=== PATIENT | male | born 1950 | race Caucasian/White ===

== ENCOUNTER 2019-01-31 16:24 | Emergency (ER) | payer OTHER ==
[~2019-01-31] VITALS: Ht 167.6 cm; Wt 79.8 kg
[~2019-01-31 16:24] MED LIST: ASPI-482 PO; ATOR20TA58 PO; CAPT12.52 PO; CLOP75TA57 PO; GARL10002 PO; ISOS30TA PO; METO25TA4 PO; OMEG1CAP30 PO; PANT40TA3 PO; RANO10002 PO; UNABLE MC; [UNRECOGNIZED DRUG - REMARK] PO
--- NOTE | 2019-01-31 16:42 | PHYS DOC ---
Past History Past Medical History: Other Past Surgical History: Angioplasty, Other Smoking: Cigarettes, Greater than 1 pack/day Alcohol Use: Occasionally Drug Use: None Adult General Chief Complaint Chief Complaint: CHEST PAIN HPI HPI Patient is a 68-year-old male presents with lower chest discomfort for the past day. Nothing makes it better or worse, no worsening with exertion or deep breaths. Patient is just recently post a nausea vomiting diarrheal illness. Denies any fevers. Patient does smoke and does have a reported cardiac history. There is no radiation of the discomfort. Discomfort is mild to moderate in intensity. No new nausea or vomiting. No diaphoresis.[] Review of Systems Review of Systems Constitutional: Denies fever or chills [] Eyes: Denies change in visual acuity, redness, or eye pain [] HENT: Denies nasal congestion or sore throat [] Respiratory: Denies cough or shortness of breath [] Cardiovascular: No additional information not addressed in HPI [] GI: Denies abdominal pain, nausea, vomiting, bloody stools or diarrhea [] : Denies dysuria or hematuria [] Musculoskeletal: Denies back pain or joint pain [] Integument: Denies rash or skin lesions [] Neurologic: Denies headache, focal weakness or sensory changes [] Endocrine: Denies polyuria or polydipsia [] All other systems were reviewed and found to be within normal limits, except as documented in this note. Allergies Allergies Allergies Coded Allergies Type Severity Reaction Last Updated Verified No Known Drug Allergies 04/14/14 No Physical Exam Physical Exam Constitutional: Well developed, well nourished, no acute distress, non-toxic appearance. [] HENT: Normocephalic, atraumatic, bilateral external ears normal, oropharynx moist, no oral exudates, nose normal. [] Eyes: PERRLA, EOMI, conjunctiva normal, no discharge. [] Neck: Normal range of motion, no tenderness, supple, no stridor. [] Cardiovascular:Heart rate regular rhythm, no murmur [] Lungs & Thorax: Bilateral breath sounds with inspiratory and expiratory wheezes[] Abdomen: Bowel sounds normal, soft, no tenderness, no masses, no pulsatile masses. [] Skin: Warm, dry, no erythema, no rash. [] Back: No tenderness, no CVA tenderness. [] Extremities: No tenderness, no cyanosis, no clubbing, ROM intact, no edema. [] Neurologic: Alert and oriented X 3, normal motor function, normal sensory function, no focal deficits noted. [] Psychologic: Affect normal, judgement normal, mood normal. [] EKG EKG EKG shows a sinus rhythm with frequent PVCs in a trigeminy pattern. There is no ST elevation. Rate is 82 bpm, normal axis, QTC of 466 ms. Interpreted me at 1636. When compared with EKG of 04/14/2014 the PVCs are the only acute feature that is different[] Radiology/Procedures Radiology/Procedures PROCEDURE: CHEST PA & LATERAL PA and lateral chest. HISTORY: Cough with chest pain, short of breath PA and lateral views were taken of the chest. There are no confluent infiltrates. Heart is normal in size. There is no pleural effusion. IMPRESSION: 1. No acute infiltrates.[] Course & Med Decision Making Course & Med Decision Making Pertinent Labs and Imaging studies reviewed. (See chart for details) [place]: Patient arrived, was placed in bed, and tolerated exam well. His lungs were clear after breathing treatment. In the reported feeling much better. After the return of lab and imaging studies, these were discussed with the patient who voiced understanding. All questions were answered. He was discharged in improved condition. Medical decision making: There is no evidence this being an acute coronary syndrome, no pneumonia, no pneumothorax, no pulmonary embolism.[] Dragon Disclaimer Dragon Disclaimer This electronic medical record was generated, in whole or in part, using a voice recognition dictation system. Departure Departure: Impression: Primary Impression: COPD with exacerbation Additional Impressions: Tobacco abuse Chest pain Disposition: HOME, SELF-CARE Condition: IMPROVED Referrals: JENNY DONOHUE DO (PCP) Follow-up in 2 days Patient Instructions: Chest Pain (Nonspecific), Chronic Obstructive Pulmonary Disease Exacerbation, Smoking Cessation Additional Instructions: Drink plenty of fluids. Follow-up with your regular doctor in 2 days. Stop smoking. Take medication as prescribed. Return to the ER if worsening difficulty breathing, worsening chest discomfort, or any other concerns. Scripts Prednisone (PREDNISONE) 50 Mg Tablet 1 TAB PO DAILY for INFLAMMATION, #5 TAB Prov: JONNA GAYTAN DO 01/31/19 Ipratropium/Albuterol Sulfate (COMBIVENT RESPIMAT INHAL) 4 Gm Aer.w.adap 2 PUFF INH Q6HRS for cough, shortness of breath, #1 INHALER Prov: JONNA GAYTAN DO 01/31/19 Problem Qualifiers Additional Impressions: Chest pain Chest pain type: unspecified Qualified Codes: R07.9 - Chest pain, unspecified JONNA GAYTAN DO Jan 31, 2019 16:42
[2019-01-31] MEDS ORDERED: ASPIRIN 81 MG TAB.CHEW ONE ×2 (16:47)
[2019-01-31 16:59] LABS: BASO # 0.1 x10^3/uL (0.0-0.2); BASO % 1 % (0-3); EOS # 0.2 x10^3/uL (0.0-0.7); EOS % 3 % (0-3); HEMATOCRIT 46.5 % (39.0-53.0); HEMOGLOBIN 16.1 g/dL (13.0-17.5); LYMPH # 3.1 x10^3/uL (1.0-4.8); LYMPH % 47 % (24-48); MEAN CORPUSCULAR HEMOGLOBIN 33 pg (25-35); MEAN CORPUSCULAR HGB CONC 35 g/dL (31-37); MEAN CORPUSCULAR VOLUME 96 fL (79-100); MONO # 0.6 x10^3/uL (0.0-1.1); MONO % 9 % (0-9); NEUT # 2.7 x10^3uL (1.8-7.7); NEUT % 40 % (31-73); PLATELET COUNT 327 x10^3/uL (140-400); RED BLOOD COUNT 4.84 x10^6/uL (4.30-5.70); WHITE BLOOD COUNT 6.7 x10^3/uL (4.0-11.0)
--- NOTE | 2019-01-31 17:08 | EKG ---
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
[2019-01-31] MEDS ORDERED: IPRATRPIUM/ALBUTEROL 0.5/2.5MG 3 ML NEBU. NEB ONE (17:15)
[2019-01-31] MEDS ORDERED: ASPIRIN 81 MG TAB.CHEW PO ONE (17:15)
[2019-01-31 17:24] LABS: CALCIUM 8.7 mg/dL (8.5-10.1); GFR 74.5; MAGNESIUM 1.9 mg/dL (1.8-2.4); POTASSIUM 3.5 mmol/L (3.5-5.1); TOTAL BILIRUBIN 0.3 mg/dL (0.2-1.0); TOTAL PROTEIN 8.1 g/dL (6.4-8.2)
--- NOTE | 2019-01-31 17:28 | RAD ---
PA and lateral chest. HISTORY: Cough with chest pain, short of breath PA and lateral views were taken of the chest. There are no confluent infiltrates. Heart is normal in size. There is no pleural effusion. IMPRESSION: 1. No acute infiltrates. Electronically signed by: Scott Russo MD (01/31/2019 5:26 PM) [id number]
[2019-01-31 17:34] LABS: BARBITURATES NEG (NEG); BENZODIAZEPINES NEG (NEG); CANNABINOIDS NEG (NEG); COCAINE NEG (NEG); METHADONE NEG (NEG); OPIATES NEG (NEG); PHENCYCLIDINE NEG (NEG)
[2019-01-31 17:38] LABS: AMPHETAMINE/METHAMPHETAMINE NEG (NEG)
[2019-01-31 17:41] LABS: INFLUENZA A PATIENT NEGATIVE (NEGATIVE); INFLUENZA B PATIENT NEGATIVE (NEGATIVE)
[2019-01-31] MEDS ORDERED: IPRA4AER INH (17:56)
[2019-01-31] MEDS ORDERED: PRED50TA PO (17:56)
[2019-01-31 18:03] LABS: BACTERIA,URINE 0 /HPF (0-FEW); BILIRUBIN,URINE NEG (NEG); CLARITY,URINE CLEAR; GLUCOSE,URINE NEG (NEG); NITRITE,URINE NEG (NEG); RBC,URINE RARE /HPF (0-2); SQUAMOUS EPITHELIAL CELL,UR OCC /LPF; UROBILINOGEN,URINE 0.2 mg/dL (0.2 mg/dL); WBC,URINE OCC /HPF (0-4)
[2019-01-31 18:04] LABS: COLOR,URINE YELLOW
[2019-01-31 18:06] VITALS: BP 119/65
== END 2019-01-31 18:05 | disposition home or self-care (01) ==
LOC: ER 16:24
DX: J44.1 Chronic obstructive pulmonary disease with (acute) exacerbation (principal); R07.89 Other chest pain; F17.210 Nicotine dependence, cigarettes, uncomplicated; Z98.61 Coronary angioplasty status
CPT/HCPCS: 36415; 71046; 80053; 80307; 81001; 83690; 83735; 83880; 84484; 85025; 85610; 87804; 93005; 94640; 99285; J7620

== ENCOUNTER 2019-04-13 12:08 | Emergency (ER) | payer OTHER ==
[~2019-04-13] VITALS: Ht 167.6 cm; Wt 79.8 kg
[~2019-04-13 12:08] MED LIST changes: +IPRA4AER INH; +PRED50TA PO
[2019-04-13] MEDS ORDERED: IV NORMAL SALINE 1,000ML 1,000 ML IV SCH (12:12)
[2019-04-13] MEDS ORDERED: MECLIZINE 12.5 MG TABLET. PO PRN (12:15)
--- NOTE | 2019-04-13 12:29 | PHYS DOC ---
Past History Past Medical History: Other Past Surgical History: Angioplasty, Other Smoking: Cigarettes, Greater than 1 pack/day Alcohol Use: Occasionally Drug Use: None Adult General Chief Complaint Chief Complaint: DIZZY/LIGHT HEADED [facility] HPI Patient is a 69-year-old male who presents with complaint of dizziness that started approximately 45 minutes prior to arrival. Patient states that he had been laying down and when he sat up to get up, he started feeling the room spinning. He states that he got up to get something to drink and symptoms got worse. He states that at that point he decided to call EMS. He denies any lateralizing weakness. He does complain of left-sided hip pain but states that that is chronic ever since having left hip surgery for broken hip. He denies any chest pain or shortness of breath. He also denies any headache.[] Review of Systems Review of Systems Constitutional: Denies fever or chills [] Eyes: Denies change in visual acuity, redness, or eye pain [] Respiratory: Denies cough or shortness of breath [] Cardiovascular: No additional information not addressed in HPI [] GI: Denies abdominal pain. Admits to nausea without vomiting. [] Integument: Denies rash or skin lesions [] Neurologic: Denies headache. Complains of dizziness/vertigo. [] All other systems were reviewed and found to be within normal limits, except as documented in this note. Current Medications Current Medications Current Medications Medications (Trade) Dose Ordered Sig/Manuelito Start Time Stop Time Status Last Admin Dose Admin Meclizine HCl (Antivert) 25 mg PRN Q6HRS PRN 04/13/19 12:15 Ondansetron HCl (Zofran) 4 mg 1X ONCE 04/13/19 12:30 04/13/19 12:31 Sodium Chloride 1,000 ml @ 1,000 mls/hr Q1H 04/13/19 12:12 04/13/19 13:11 Allergies Allergies Allergies Coded Allergies Type Severity Reaction Last Updated Verified No Known Drug Allergies 04/14/14 No Physical Exam Physical Exam Constitutional: Well developed, well nourished, no acute distress, non-toxic appearance. [] HENT: Normocephalic, atraumatic, bilateral external ears normal, oropharynx moist, no oral exudates, nose normal. [] Eyes: PERRLA, EOMI, conjunctiva normal, no discharge. [] Neck: Normal range of motion, no tenderness, supple. [] Cardiovascular:Heart rate regular rhythm, no murmur [] Lungs & Thorax: Bilateral breath sounds clear to auscultation [] Abdomen: Bowel sounds normal, soft, no tenderness. [] Skin: Warm, dry, no erythema, no rash. [] Extremities: No tenderness, no cyanosis, no clubbing, ROM intact. [] Neurologic: Alert and oriented X 3, normal motor function, normal sensory function, no focal deficits noted. [] Current Patient Data Vital Signs Vital Signs Date Time Temp Pulse Resp B/P (MAP) Pulse Ox O2 Delivery O2 Flow Rate FiO2 04/13/19 12:12 98.3 67 18 97 Room Air EKG EKG [] Radiology/Procedures Radiology/Procedures [] Course & Med Decision Making Course & Med Decision Making Pertinent Labs and Imaging studies reviewed. (See chart for details) [] Dragon Disclaimer Dragon Disclaimer This electronic medical record was generated, in whole or in part, using a voice recognition dictation system. Departure Departure: Impression: Primary Impression: Benign positional vertigo Disposition: HOME, SELF-CARE Condition: STABLE Referrals: JENNY DONOHUE DO (PCP) Patient Instructions: Benign Positional Vertigo Scripts Ondansetron Hcl (ZOFRAN) 4 Mg Tablet 4 MG PO Q6HRS PRN for NAUSEA, #10 TAB Prov: DEVON OSULLIVAN Jr. DO 04/13/19 Meclizine Hcl (MECLIZINE HCL) 25 Mg Tablet 1 TAB PO TID PRN for DIZZINESS, #30 TAB Prov: DEVON OSULLIVAN Jr. DO 04/13/19 Problem Qualifiers Primary Impression: Benign positional vertigo Laterality: unspecified laterality Qualified Codes: H81.10 - Benign paroxysmal vertigo, unspecified ear DEVON OSULLIVAN Jr. DO Apr 13, 2019 12:29
[2019-04-13] MEDS ORDERED: ONDANSETRON PF 4 MG/2 ML VIAL. IV ONE (12:30)
[2019-04-13 12:34] LABS: BASO % 1 % (0-3); EOS # 0.2 x10^3/uL (0.0-0.7); EOS % 4 % (0-3); HEMOGLOBIN 14.4 g/dL (13.0-17.5); LYMPH # 2.4 x10^3/uL (1.0-4.8); LYMPH % 47 % (24-48); MEAN CORPUSCULAR HEMOGLOBIN 33 pg (25-35); MEAN CORPUSCULAR HGB CONC 34 g/dL (31-37); MEAN CORPUSCULAR VOLUME 96 fL (79-100); MONO # 0.5 x10^3/uL (0.0-1.1); MONO % 10 % (0-9); NEUT # 2.1 x10^3uL (1.8-7.7); NEUT % 39 % (31-73); PLATELET COUNT 322 x10^3/uL (140-400); RED BLOOD COUNT 4.39 x10^6/uL (4.30-5.70); RED CELL DISTRIBUTION WIDTH 13.1 % (11.5-14.5); WHITE BLOOD COUNT 5.2 x10^3/uL (4.0-11.0)
[2019-04-13 12:45] LABS: ALBUMIN 3.5 g/dL (3.4-5.0); CALCIUM 9.1 mg/dL (8.5-10.1); CREATININE 0.9 mg/dL (0.7-1.3); DIRECT BILIRUBIN 0.1 mg/dL (0.0-0.2); GFR 83.9; MAGNESIUM 1.9 mg/dL (1.8-2.4); POTASSIUM 3.6 mmol/L (3.5-5.1); TOTAL BILIRUBIN 0.4 mg/dL (0.2-1.0); TOTAL PROTEIN 7.1 g/dL (6.4-8.2)
[2019-04-13 14:30] VITALS: BP 132/65
[2019-04-13] MEDS ORDERED: MECL25TA3 PO (14:40)
[2019-04-13] MEDS ORDERED: ONDA4TAB7 PO (14:40)
== END 2019-04-13 14:53 | disposition home or self-care (01) ==
LOC: ER 12:08
DX: H81.10 Benign paroxysmal vertigo, unspecified ear (principal); R42 Dizziness and giddiness; F17.210 Nicotine dependence, cigarettes, uncomplicated; Z98.61 Coronary angioplasty status
CPT/HCPCS: 36415; 80048; 80076; 83735; 85025; 96361; 96374; 99284; J2405; J8597; J7030

== ENCOUNTER 2019-05-04 22:34 | Emergency (ER) | payer OTHER, MEDICAID ==
[~2019-05-04] VITALS: Ht 167.6 cm; Wt 79.8 kg
[~2019-05-04 22:34] MED LIST changes: +MECL25TA3 PO; +ONDA4TAB7 PO
--- NOTE | 2019-05-04 23:14 | EKG ---
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
--- NOTE | 2019-05-04 23:28 | RAD ---
Exam: CT head INDICATION: Right arm tingling TECHNIQUE: Sequential axial images through the head were obtained without the administration of IV contrast. Comparisons: None FINDINGS: No focal parenchymal lesion or hemorrhage is identified. There is no midline shift or sulcal effacement. No acute vascular territory infarction is identified. Jean-white distinction is preserved. The ventricular system is within normal limits without compression hydrocephalus. The basal cisterns are well maintained. The visualized portions of the paranasal sinuses and mastoid air cells are well-pneumatized. No acute fractures. IMPRESSION: No acute intracranial abnormality. Exposure: One or more of the following in the visualized dose reduction techniques were utilized for this examination: 1. Automated exposure control 2. Adjustment of the MA and/or KV according to patient size Use of iterative of reconstructive technique Electronically signed by: Damien Elam MD (05/04/2019 11:25 PM) [facility]
--- NOTE | 2019-05-04 23:43 | RAD ---
EXAM: PA and Lateral Views of the Chest DATE: 05/04/2019 10:56 PM INDICATION: Right arm tingling, cough, congestion COMPARISON: 01/31/2019, 04/14/2014 FINDINGS/ IMPRESSION: The heart is not enlarged. Mediastinal and hilar contours are stable. Mild emphysematous changes are seen. Linear opacities in the lung bases likely scarring/atelectasis. No lobar consolidation. No pleural effusion or pneumothorax. Electronically signed by: Rod Santo MD (05/04/2019 11:40 PM) [place] [id number]
--- NOTE | 2019-05-04 23:48 | PHYS DOC ---
Past History Past Medical History: CVA, Other Past Surgical History: Angioplasty, Other Smoking: Cigarettes, Greater than 1 pack/day Alcohol Use: Occasionally Drug Use: None Adult General Chief Complaint Chief Complaint: MULTIPLE COMPLAINTS HPI HPI Patient is a 69-year-old male presents with multiple complaints. First complaint is left hip pain. 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 There has been no new trauma. Patient has taken no pain medicine. It is worse this evening. No new weakness or tingling. He has not fallen on the hip recently. Patient also complains of his right arm feeling like it is falling asleep. He denies anything that makes this better or worse. Denies any chest pain or difficulty breathing beyond his usual baseline. Denies any trauma. He has taken no medicine to help with this. No previous history of this. No new weakness. He also reports a headache that is in the back of his head. Not worst headache of life. This started this evening. Symptoms are moderate in intensity. Patient has been able to bicycle to and from the store today. This is consistent with his usual activities of daily living.[] Review of Systems Review of Systems Constitutional: Denies fever or chills [] Eyes: Denies change in visual acuity, redness, or eye pain [] HENT: Denies nasal congestion or sore throat [] Respiratory: Denies cough or shortness of breath [] Cardiovascular: No chest pain or palpitations[] GI: Denies abdominal pain, nausea, vomiting, bloody stools or diarrhea [] : Denies dysuria or hematuria [] Musculoskeletal: Denies back pain or joint pain [] Integument: Denies rash or skin lesions [] Neurologic: Denies focal weakness or sensory changes, see history of present illness [] Endocrine: Denies polyuria or polydipsia [] All other systems were reviewed and found to be within normal limits, except as documented in this note. Current Medications Current Medications Current Medications Medications (Trade) Dose Ordered Sig/Manuelito Start Time Stop Time Status Last Admin Dose Admin Ketorolac Tromethamine (Toradol 15mg Vial) 15 mg 1X ONCE 05/04/19 23:15 05/04/19 23:16 DC Allergies Allergies Allergies Coded Allergies Type Severity Reaction Last Updated Verified No Known Drug Allergies 04/14/14 No Physical Exam Physical Exam Constitutional: Well developed, well nourished, no acute distress, non-toxic appearance. [] HENT: Normocephalic, atraumatic, bilateral external ears normal, oropharynx moist, no oral exudates, nose normal. [] Eyes: PERRLA, EOMI, conjunctiva normal, no discharge. [] Neck: Normal range of motion, no tenderness, supple, no stridor. [] Cardiovascular:Heart rate regular rhythm, no murmur [] Lungs & Thorax: Bilateral breath sounds clear to auscultation [] Abdomen: Bowel sounds normal, soft, no tenderness, no masses, no pulsatile masses. [] Skin: Warm, dry, no erythema, no rash. [] Back: No tenderness, no CVA tenderness. [] Extremities: No tenderness, no cyanosis, no clubbing, ROM intact, no edema. [] Neurologic: Alert and oriented X 3, normal motor function, normal sensory function, no focal deficits noted. [] Psychologic: Affect normal, judgement normal, mood normal. [] Current Patient Data Vital Signs Vital Signs Date Time Temp Pulse Resp B/P (MAP) Pulse Ox O2 Delivery O2 Flow Rate FiO2 05/04/19 22:34 98.2 90 18 96 Room Air EKG EKG EKG shows a sinus rhythm at 83 bpm, normal axis, QTC of 479 ms, incomplete right bundle-branch block. Prolonged QT. No ST elevations. Interpreted by me at 2312. Compared with EKG of 01/31/2019 no acute changes other than frequent PVCs have resolved.[] Radiology/Procedures Radiology/Procedures PROCEDURE: CHEST PA & LATERAL EXAM: PA and Lateral Views of the Chest DATE: 05/04/2019 10:56 PM INDICATION: Right arm tingling, cough, congestion COMPARISON: 01/31/2019, 04/14/2014 FINDINGS/ IMPRESSION: The heart is not enlarged. Mediastinal and hilar contours are stable. Mild emphysematous changes are seen. Linear opacities in the lung bases likely scarring/atelectasis. No lobar consolidation. No pleural effusion or pneumothorax. PROCEDURE: CT HEAD WO CONTRAST Exam: CT head INDICATION: Right arm tingling TECHNIQUE: Sequential axial images through the head were obtained without the administration of IV contrast. Comparisons: None FINDINGS: No focal parenchymal lesion or hemorrhage is identified. There is no midline shift or sulcal effacement. No acute vascular territory infarction is identified. Jean-white distinction is preserved. The ventricular system is within normal limits without compression hydrocephalus. The basal cisterns are well maintained. The visualized portions of the paranasal sinuses and mastoid air cells are well-pneumatized. No acute fractures. IMPRESSION: No acute intracranial abnormality. PROCEDURE: HIP LEFT 2V WITH PELVIS Exam: Left hip 2 views INDICATION: Left hip pain TECHNIQUE: Frontal view of the pelvis with frog-leg lateral view of the left hip Comparisons: None FINDINGS: Postsurgical changes of open reduction internal fixation at the left hip with dynamic hip screw which appears well seated and well aligned. No acute or healed fractures. Soft tissues are unremarkable. Joint spaces are otherwise well-maintained. IMPRESSION: ORIF left hip without evidence of complication.[] Course & Med Decision Making Course & Med Decision Making Pertinent Labs and Imaging studies reviewed. (See chart for details) ED course: Patient arrived, was placed in bed, and tolerated exam well. Was transported to and from radiology with any complications. After the return of the imaging and laboratory studies, these were discussed with the patient who voiced understanding. All questions were answered. He was discharged in improved condition. Medical decision making: There is no evidence of a stroke syndrome, no evidence of significant electrolyte abnormality, no evidence of a fracture, dislocation, nor intracranial mass or bleed. Given the patient is able to bicycle. No evidence of intractable pain. No evidence of vascular compromise.[] Dragon Disclaimer Dragon Disclaimer This electronic medical record was generated, in whole or in part, using a voice recognition dictation system. Departure Departure: Impression: Primary Impression: Headache Additional Impressions: Hip pain Arm pain Disposition: 01 HOME, SELF-CARE Condition: IMPROVED Referrals: JENNY DONOHUE DO (PCP) Follow-up in 2 days Patient Instructions: General Headache Without Cause, Hip Exercises, Generic, SportsMed, Hip Pain Additional Instructions: Follow-up with your regular doctor in 2 days. Drink plenty of fluids. Return to the ER if worsening pain or any other concerns. Scripts Meloxicam (MELOXICAM) 7.5 Mg Tablet 7.5 MG PO DAILY for PAIN, #20 TAB Prov: JONNA GAYTAN DO 05/05/19 Problem Qualifiers Primary Impression: Headache Headache type: unspecified Headache chronicity pattern: unspecified pattern Intractability: not intractable Qualified Codes: R51 - Headache Additional Impressions: Hip pain Laterality: left Qualified Codes: M25.552 - Pain in left hip Arm pain Laterality: right Qualified Codes: M79.601 - Pain in right arm JONNA GAYTAN DO May 04, 2019 23:48
--- NOTE | 2019-05-04 23:52 | RAD ---
Exam: Left hip 2 views INDICATION: Left hip pain TECHNIQUE: Frontal view of the pelvis with frog-leg lateral view of the left hip Comparisons: None FINDINGS: Postsurgical changes of open reduction internal fixation at the left hip with dynamic hip screw which appears well seated and well aligned. No acute or healed fractures. Soft tissues are unremarkable. Joint spaces are otherwise well-maintained. IMPRESSION: ORIF left hip without evidence of complication. Electronically signed by: Damien Elam MD (05/04/2019 11:49 PM) [facility]
[2019-05-05] MEDS: KETOROLAC 15 MG/ML VIAL. IV ONE (00:02)
[2019-05-05 00:17] LABS: BASO % 1 % (0-3); EOS # 0.2 x10^3/uL (0.0-0.7); EOS % 2 % (0-3); HEMATOCRIT 39.4 % (39.0-53.0); HEMOGLOBIN 13.9 g/dL (13.0-17.5); LYMPH # 2.8 x10^3/uL (1.0-4.8); LYMPH % 36 % (24-48); MEAN CORPUSCULAR HEMOGLOBIN 33 pg (25-35); MEAN CORPUSCULAR HGB CONC 35 g/dL (31-37); MEAN CORPUSCULAR VOLUME 95 fL (79-100); MONO # 0.8 x10^3/uL (0.0-1.1); MONO % 10 % (0-9); NEUT % 51 % (31-73); PLATELET COUNT 273 x10^3/uL (140-400); RED BLOOD COUNT 4.15 x10^6/uL (4.30-5.70); RED CELL DISTRIBUTION WIDTH 13.1 % (11.5-14.5); WHITE BLOOD COUNT 7.8 x10^3/uL (4.0-11.0)
[2019-05-05 00:25] LABS: BACTERIA,URINE 0 /HPF (0-FEW); BILIRUBIN,URINE NEG (NEG); CLARITY,URINE CLEAR; COLOR,URINE YELLOW; GLUCOSE,URINE NEG (NEG); NITRITE,URINE NEG (NEG); RBC,URINE 0 /HPF (0-2); SQUAMOUS EPITHELIAL CELL,UR OCC /LPF; UROBILINOGEN,URINE 1 mg/dL (0.2 mg/dL); WBC,URINE 0 /HPF (0-4)
[2019-05-05 00:29] LABS: ALBUMIN 3.4 g/dL (3.4-5.0); ALBUMIN/GLOBULIN RATIO 0.9 (1.0-1.7); CALCIUM 8.8 mg/dL (8.5-10.1); CREATININE 0.9 mg/dL (0.7-1.3); GFR 83.9; MAGNESIUM 1.8 mg/dL (1.8-2.4); POTASSIUM 3.3 mmol/L (3.5-5.1); TOTAL BILIRUBIN 0.5 mg/dL (0.2-1.0)
[2019-05-05 00:29] LABS: BARBITURATES NEG (NEG); BENZODIAZEPINES NEG (NEG); CANNABINOIDS NEG (NEG); COCAINE NEG (NEG); METHADONE NEG (NEG); OPIATES NEG (NEG); PHENCYCLIDINE NEG (NEG)
[2019-05-05 00:30] LABS: AMPHETAMINE/METHAMPHETAMINE NEG (NEG)
[2019-05-05] MEDS ORDERED: MELO7.5T29 PO (01:04)
[2019-05-05 01:05] VITALS: BP 130/94
== END 2019-05-05 01:20 | disposition home or self-care (01) ==
LOC: ER 22:34
DX: M79.601 Pain in right arm (principal); R51 Headache; M25.552 Pain in left hip; R20.0 Anesthesia of skin; R09.81 Nasal congestion; F17.210 Nicotine dependence, cigarettes, uncomplicated; Z86.73 Personal history of transient ischemic attack (TIA), and cerebral infarction without residual deficits; Z98.61 Coronary angioplasty status
CPT/HCPCS: 36415; 70450; 71046; 73502; 80053; 80307; 81001; 83690; 83735; 84484; 85025; 85610; 85730; 93005; 96374; 99285; J1885

== ENCOUNTER → 2019-05-28 | Outpatient (CLI) | payer OTHER, MEDICAID ==
[2019-05-05 01:05] VITALS: BP 130/94
[~2019-05-28] MED LIST changes: +MELO7.5T29 PO
--- NOTE | 2019-05-28 14:52 | RAD ---
EXAM: Lumbar spine, 5 views. HISTORY: Pain. COMPARISON: None. FINDINGS: 5 views of the lumbar spine are obtained. There is no significant listhesis. The vertebral bodies are normal in height and the disc spaces are preserved. There is multilevel endplate remodeling and facet arthropathy. There is partial visual position of fixation of a septation within the proximal left femur. IMPRESSION: Multilevel degenerative change throughout the lumbar spine. No acute osseous finding. Electronically signed by: Haylee Bragg MD (05/28/2019 2:49 PM) [id number]
--- NOTE | 2019-05-28 14:58 | RAD ---
EXAM: Left hip, 2 views. HISTORY: Pain. COMPARISON: 05/04/2019 FINDINGS: 2 views of the left hip are obtained. There is internal fixation of a slightly healing left femoral intertrochanteric fracture. IMPRESSION: Internal fixation of a right femoral intertrochanteric fracture. Electronically signed by: Haylee Bragg MD (05/28/2019 2:55 PM) [id number]
== END | disposition home or self-care (01) ==
LOC: DXRAD 14:14
PROVIDERS: ATTEND Physician Assistant
DX: S72.141A Displaced intertrochanteric fracture of right femur, initial encounter for closed fracture (principal); M47.26 Other spondylosis with radiculopathy, lumbar region; M12.88 Other specific arthropathies, not elsewhere classified, other specified site; X58.XXXA Exposure to other specified factors, initial encounter; Y93.89 Activity, other specified; Y92.89 Other specified places as the place of occurrence of the external cause; Y99.8 Other external cause status
CPT/HCPCS: 72110; 73502

== ENCOUNTER → 2019-08-04 | Outpatient (CLI) | payer OTHER, MEDICAID ==
--- NOTE | 2019-08-05 05:25 | RAD ---
Two View left hip: Clinical History: . Technique: AP and frog leg views were obtained. Comparison: None. Findings: There is been prior repair of a left hip fracture with dynamic hip screw. The visualized osseous structures appear intact. The femoral acetabular relationship is normal. Impression: No acute findings. Electronically signed by: Ambrosio Beach III, MD (08/05/2019 5:22 AM) [id number]
== END | disposition home or self-care (01) ==
LOC: DXRAD 14:22
PROVIDERS: ATTEND Physician Assistant
DX: M25.552 Pain in left hip (principal); Z98.890 Other specified postprocedural states
CPT/HCPCS: 73502

== ENCOUNTER 2020-04-28 19:52 | Emergency (ER) | payer OTHER ==
[~2020-04-28] VITALS: Ht 165.1 cm; Wt 75.0 kg
[~2020-04-28 19:52] MED LIST changes: +MECL-75 PO; -MECL25TA3 PO
[2020-04-28 20:05] VITALS: BP 114/72
[2020-04-28] MEDS ORDERED: oxyCODONE/APAP 5/325 1 TAB TABLET PO ONE ×2 (20:15→21:45)
[2020-04-28] MEDS ORDERED: DEXAMETHASONE SOD PHOS 10 MG/ML VIAL. IV ONE (20:15)
--- NOTE | 2020-04-28 20:55 | RAD ---
CT lumbar spine without contrast History: Bilateral lower extremity weakness Axial helical images of the lumbar spine were obtained without contrast. Axial, coronal and sagittal reconstruction was performed. Findings: The vertebral bodies are aligned. There is no loss of vertebral body stature. Evaluation of the central canal is limited without contrast. Diffuse circumferential disc ossific ridges and hypertrophy of facets and ligament of flavum and an element of congenital shortening of pedicles results in mild central stenosis at L1-L2, L2-L3 and L3-L4. There is moderate central stenosis at L4-L5 and there is crowding the lateral recesses at L4-5. There is loss of intervertebral disc height at L4-5 with vacuum changes. There is moderate narrowing of multiple neuroforamen below the level exiting nerve roots there is complete loss of fat around the exiting nerve root on the left at L4-5. 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 There appears be compression of the intraforaminal course of the exiting nerve root on the left at this level. PQRS Compliance Statement: One or more of the following individualized dose reduction techniques were utilized for this examination: 1. Automated exposure control 2. Adjustment of the mA and/or kV according to patient size 3. Use of iterative reconstruction technique Electronically signed by: Ambrosio Beach III, MD (04/28/2020 8:52 PM) [facility]
[2020-04-28] MEDS ORDERED: ACET-704 PO (21:44)
[2020-04-28] MEDS ORDERED: PRED50TA PO (21:44)
[2020-04-28] MEDS ORDERED: METH-38 PO (21:44)
--- NOTE | 2020-04-28 21:44 | PHYS DOC ---
Past History Past Medical History: CVA, OR, Other Past Surgical History: Angioplasty, Other Additional Past Surgical Histo: HIP SX, LEG SX Smoking: Cigarettes, Greater than 1 pack/day Alcohol Use: Occasionally Drug Use: None Adult General Chief Complaint Chief Complaint: LOWER EXT PAIN HPI HPI Patient is a 70 year old male who presents with lower back pain and bilateral leg numbness and paresthesias. Patient states that he does not typically have back pain that this started suddenly started this morning. He states that he was trying to walk in his bathroom and felt like he was going to fall over. He states this legs feel like they are falling asleep. He denies any trauma. He has not had any bowel or bladder incontinence or retention. He has chronic saddle anesthesia from a prior hip fracture and surgery. He does have some chronic left-sided weakness from a stroke however this feels worse than usual. Review of Systems Review of Systems General: Denies fever, chills, sweats, fatigue Eyes: Denies drainage, blurred vision, eye redness HENT: Denies rhinorrhea, sore throat, earache Respiratory: Denies cough, shortness of breath, wheezing Cardiac: Denies edema, palpitations, chest pain GI: Denies abdominal pain, Nausea, vomiting MSK: Denies neck pain reports back pain Skin: Denies rash, jaundice Neuro: Denies headache, dizziness Psychiatric: Denies SI/HI Current Medications Current Medications Current Medications Medications (Trade) Dose Ordered Sig/Manuelito Start Time Stop Time Status Last Admin Dose Admin Dexamethasone Sodium Phosphate (Decadron) 10 mg 1X ONCE 04/28/20 20:15 04/28/20 20:17 DC 04/28/20 20:44 10 MG Ketorolac Tromethamine (Toradol 30mg Vial) 30 mg 1X ONCE 04/28/20 21:45 04/28/20 21:46 Oxycodone/ Acetaminophen (Percocet 5/325) 2 tab 1X ONCE 04/28/20 21:45 04/28/20 21:46 Allergies Allergies Allergies Coded Allergies Type Severity Reaction Last Updated Verified No Known Drug Allergies 04/14/14 No Physical Exam Physical Exam General: Awake, alert, NAD. Well Nourished, well hydrated. Cooperative HEENT: Atraumatic, EOMI, PERRL, airway patent, moist oral mucosa Neck: Supple, trachea midline Respiratory: CTA bilaterally, normal effort, no wheezing/crackles CV: RRR, no murmur, cap refill <2 GI: Soft, nondistended, nontender, no masses MSK: No obvious deformities Skin: Warm, dry, intact Neuro: A&O x3, speech NL, sensory intact bilateral lower and upper extremities, chronic facial droop on right, bilateral legs 4/5 strength Psych: Normal affect, normal mood, not suicidal or homicidal Current Patient Data Vital Signs Vital Signs Date Time Temp Pulse Resp B/P (MAP) Pulse Ox O2 Delivery O2 Flow Rate FiO2 04/28/20 20:05 98.8 62 18 114/72 (86) 98 Room Air EKG EKG [] Radiology/Procedures Radiology/Procedures [] Course & Med Decision Making Course & Med Decision Making Pertinent Labs and Imaging studies reviewed. (See chart for details) Patient is 70-year-old male who presents to the emergency room complaining of lower back pain, paresthesias, weakness with difficulty walking. Given the patient does not have a history of back pain will do a CT scan to evaluate for mass, herniated disc, pathologic fracture. Patient has not had any bowel or bladder incontinence or retention making cauda equina less likely. He has not had any fever and is not an IV drug abuser. It is unlikely that he has a spinal abscess. Patient was given Decadron and Percocet to help with symptoms. After medication statin patient was reevaluated. At this time patient is able to set up and walk on his own. He continues to have back pain, however his paresthesias and weakness have significantly improved. This makes emergent spinal pathology highly unlikely. It is likely that patient has sciatica with some chronic stenosis in the back. CT shows stenosis without herniated disc or other concerning signs. He will be treated symptomatically. We have discussed the concerning signs and symptoms where he would need to return to the emergency room for an MRI. Patient's test results and vitals while in the ED were fully reviewed and discussed with the patient. Patient is stable and at this time does not need admission to the hospital. We have discussed strict return precautions and the importance of following up with their Primary Care Physician. Patient stated understanding and was given an opportunity to ask any questions. Patient is in agreement with plan. Robert Disclaimer Dragon Disclaimer This electronic medical record was generated, in whole or in part, using a voice recognition dictation system. Departure Departure: Impression: Primary Impression: Sciatica Disposition: HOME/RESIDENCE PRIOR TO ADM Condition: STABLE Referrals: KAY ZAMORA (PCP) Patient Instructions: Sciatica Scripts Acetaminophen With Codeine (TYLENOL WITH CODEINE #3 TABLET) 1 Each Tablet 1 TAB PO PRN BID PRN for pain MDD 2 Tablet(s) for 7 Days, #14 TAB 0 Refills Prov: ADALID CUADRA MD 04/28/20 Methocarbamol (ROBAXIN-750) 750 Mg Tablet 1 TAB PO TID PRN for back pain for 7 Days, #21 TAB 0 Refills Prov: ADALID CUADRA MD 04/28/20 Prednisone (PREDNISONE) 50 Mg Tablet 1 TAB PO DAILY for inflammation, #5 TAB You received this medication in the emergency room today. You will starting your next dose tomorrow. Prov: ADALID CUADRA MD 04/28/20 Justification of Admission: Justification of Admission: Justification of Admission Dx: No ADALID CUADRA MD Apr 28, 2020 21:44
[2020-04-28] MEDS ORDERED: KETOROLAC 30 MG/ML VIAL. IVP ONE (21:45)
== END 2020-04-28 21:55 | disposition home or self-care (01) ==
LOC: ER 19:52
DX: M54.42 Lumbago with sciatica, left side (principal); M54.41 Lumbago with sciatica, right side; I25.2 Old myocardial infarction; F17.210 Nicotine dependence, cigarettes, uncomplicated; Z86.73 Personal history of transient ischemic attack (TIA), and cerebral infarction without residual deficits; Z98.61 Coronary angioplasty status
CPT/HCPCS: 72131; 96374; 96375; 99284; J1100; J1885

== ENCOUNTER 2020-05-02 16:20 | Emergency (ER) | payer OTHER ==
[~2020-05-02] VITALS: Ht 165.1 cm; Wt 71.3 kg
[~2020-05-02 16:20] MED LIST changes: +ACET-704 PO; +METH-38 PO
[2020-05-02] MEDS ORDERED: IV NORMAL SALINE 1,000ML 1,000 ML IV ONE (16:30)
--- NOTE | 2020-05-02 16:33 | PHYS DOC ---
Past History Past Medical History: CVA, MA, Other Past Surgical History: Angioplasty, Other Additional Past Surgical Histo: HIP SX, LEG SX Smoking: Cigarettes, Greater than 1 pack/day Alcohol Use: Occasionally Drug Use: None General Adult EDM: Chief Complaint: CONSTIPATION HPI: HPI: 70-year-old male presents via EMS with constipation. Patient had a bowel movement yesterday. He went to try to have a bowel movement at 2 PM today and was unable to have one. He is very concerned by this a came to the emergency room. He has had constipation requiring hospitalization previously. He had to stay for couple days to get cleaned out. He has lower abdominal pain all across his abdomen. He usually takes a stool softener every day. He has been taking these. Denies fever chills. Denies nausea, vomiting. Review of Systems: Review of Systems: Constitutional: Denies fever or chills Eyes: Denies change in visual acuity HENT: Denies nasal congestion or sore throat Respiratory: Denies cough or shortness of breath Cardiovascular: Denies chest pain or edema GI: Lower abdominal pain, constipation : Denies dysuria Musculoskeletal: Denies back pain or joint pain Integument: Denies rash Neurologic: Denies headache, focal weakness or sensory changes Endocrine: Denies polyuria or polydipsia Lymphatic: Denies swollen glands Psychiatric: Denies depression or anxiety Heart Score: Risk Factors: Risk Factors: DM, Current or recent (<one month) smoker, HTN, HLP, family history of CAD, obesity. Risk Scores: Score 0 - 3: 2.5% MACE over next 6 weeks - Discharge Home Score 4 - 6: 20.3% MACE over next 6 weeks - Admit for Clinical Observation Score 7 - 10: 72.7% MACE over next 6 weeks - Early Invasive Strategies Current Medications: Current Meds: Current Medications Medications (Trade) Dose Ordered Sig/Manuelito Start Time Stop Time Status Last Admin Dose Admin Sodium Chloride 1,000 ml @ 1,000 mls/hr 1X ONCE 05/02/20 16:30 05/02/20 17:29 UNV Allergies: Allergies: Allergies Coded Allergies Type Severity Reaction Last Updated Verified No Known Drug Allergies 04/14/14 No Physical Exam: PE: Constitutional: Well developed, well nourished, no acute distress, non-toxic appearance. [] HENT: Normocephalic, atraumatic, bilateral external ears normal, oropharynx moist, no oral exudates, nose normal. [] Eyes: PERRLA, EOMI, conjunctiva normal, no discharge. [] Neck: Normal range of motion, no tenderness, supple, no stridor. [] Cardiovascular: Heart rate regular rhythm, no murmur [] Lungs & Thorax: Bilateral breath sounds clear to auscultation [] Abdomen: Bowel sounds normal, soft, mild lower abdominal tenderness, no masses, no pulsatile masses. [] Skin: Warm, dry, no erythema, no rash. [] Back: No tenderness, no CVA tenderness. [] Extremities: No tenderness, no cyanosis, no clubbing, ROM intact, no edema. [] Neurologic: Alert and oriented X 3, normal motor function, normal sensory function, no focal deficits noted. [] Psychologic: Affect normal, judgement normal, mood normal. [] Current Patient Data: Vital Signs: Vital Signs Date Time Temp Pulse Resp B/P (MAP) Pulse Ox O2 Delivery O2 Flow Rate FiO2 05/02/20 16:22 98.5 100 16 117/40 (65) 96 Room Air EKG: EKG: [] Radiology/Procedures: Radiology/Procedures: [] Impressions: Exam: Abdomen one view INDICATION: Constipation TECHNIQUE: Via view of the abdomen Comparisons: None FINDINGS: Air and stool are noted throughout the colon to level the rectum in a nonobstructive bowel gas pattern. Moderate stool burden is noted throughout the colon. No suspicious masses or calcifications. Visualized osseous structures are unremarkable. IMPRESSION: Nonobstructive bowel gas pattern. Moderate stool burden throughout the colon. Electronically signed by: Damien Forman MD (05/02/2020 5:14 PM) [id number] DICTATED AND SIGNED BY: DAMIEN FORMAN MD DATE: 05/02/20 1714 CC: ERASTO BRANCH DO; KAY ZAMORA ~ Course & Med Decision Making: Course & Med Decision Making Pertinent Labs and Imaging studies reviewed. (See chart for details) The patient's KUB does show moderate stool burden throughout the colon. Labs are unremarkable. I will treat him with an Fleet enema and magnesium citrate. The patient had a bowel movement in the emergency room. He would like to go home. He is stable for discharge at this time. [] Dragon Disclaimer: Robert Disclaimer: This electronic medical record was generated, in whole or in part, using a voice recognition dictation system. Departure Departure: Impression: Primary Impression: Constipation by delayed colonic transit Disposition: HOME/RESIDENCE PRIOR TO ADM Condition: STABLE Referrals: KAY ZAMORA (PCP) Patient Instructions: Constipation, Adult, [id number] Justification of Admission: Justification of Admission: Justification of Admission Dx: N/A ERASTO BRANCH DO May 02, 2020 16:33
[2020-05-02 17:06] LABS: BASO % 0 % (0-3); EOS % 0 % (0-3); HEMATOCRIT 42.5 % (39.0-53.0); HEMOGLOBIN 14.9 g/dL (13.0-17.5); LYMPH # 1.6 x10^3/uL (1.0-4.8); LYMPH % 16 % (24-48); MEAN CORPUSCULAR HEMOGLOBIN 34 pg (25-35); MEAN CORPUSCULAR HGB CONC 35 g/dL (31-37); MEAN CORPUSCULAR VOLUME 97 fL (79-100); MONO # 0.4 x10^3/uL (0.0-1.1); MONO % 4 % (0-9); NEUT % 80 % (31-73); PLATELET COUNT 298 x10^3/uL (140-400); RED CELL DISTRIBUTION WIDTH 12.5 % (11.5-14.5)
[2020-05-02 17:14] LABS: CALCIUM 9.2 mg/dL (8.5-10.1); CREATININE 1.4 mg/dL (0.7-1.3); GFR 50.2; POTASSIUM 3.8 mmol/L (3.5-5.1)
[2020-05-02] MEDS ORDERED: SODIUM PHOSPHATES 19/7GM 133 ML ENEMA. PR ONE (17:15)
[2020-05-02] MEDS ORDERED: MAGNESIUM CITRATE 296 ML SOLUTION. PO ONE (17:15)
[2020-05-02 17:17] LABS: ALBUMIN 3.8 g/dL (3.4-5.0); TOTAL BILIRUBIN 0.3 mg/dL (0.2-1.0); TOTAL PROTEIN 7.7 g/dL (6.4-8.2)
--- NOTE | 2020-05-02 17:17 | RAD ---
Exam: Abdomen one view INDICATION: Constipation TECHNIQUE: Via view of the abdomen Comparisons: None FINDINGS: Air and stool are noted throughout the colon to level the rectum in a nonobstructive bowel gas pattern. Moderate stool burden is noted throughout the colon. No suspicious masses or calcifications. Visualized osseous structures are unremarkable. IMPRESSION: Nonobstructive bowel gas pattern. Moderate stool burden throughout the colon. Electronically signed by: Damien Elam MD (05/02/2020 5:14 PM) [id number]
[2020-05-02 17:41] VITALS: BP 116/76
[2020-05-02 18:10] LABS: BACTERIA,URINE 0 /HPF (0-FEW); BILIRUBIN,URINE NEG (NEG); CLARITY,URINE CLEAR; COLOR,URINE YELLOW; GLUCOSE,URINE NEG (NEG); HYALINE CASTS, URINE FEW /HPF; NITRITE,URINE NEG (NEG); RBC,URINE OCC /HPF (0-2); SQUAMOUS EPITHELIAL CELL,UR OCC /LPF; UROBILINOGEN,URINE 0.2 mg/dL (0.2 mg/dL); WBC,URINE OCC /HPF (0-4)
== END 2020-05-02 18:33 | disposition home or self-care (01) ==
LOC: ER 16:20
DX: K59.01 Slow transit constipation (principal); R10.30 Lower abdominal pain, unspecified; I25.2 Old myocardial infarction; F17.210 Nicotine dependence, cigarettes, uncomplicated; Z98.61 Coronary angioplasty status; Z86.73 Personal history of transient ischemic attack (TIA), and cerebral infarction without residual deficits
CPT/HCPCS: 36415; 74018; 80053; 81001; 85025; 99284; J7030

== ENCOUNTER 2020-10-01 08:41 | Emergency (ER) | payer OTHER ==
[~2020-10-01] VITALS: Ht 165.1 cm; Wt 71.3 kg
[2020-10-01 09:19] VITALS: BP 128/74
[2020-10-01 09:34] LABS: BASO # 0.1 x10^3/uL (0.0-0.2); BASO % 1 % (0-3); EOS # 0.2 x10^3/uL (0.0-0.7); EOS % 3 % (0-3); HEMATOCRIT 44.5 % (39.0-53.0); HEMOGLOBIN 15.4 g/dL (13.0-17.5); LYMPH # 3.4 x10^3/uL (1.0-4.8); LYMPH % 47 % (24-48); MEAN CORPUSCULAR HEMOGLOBIN 32 pg (25-35); MEAN CORPUSCULAR HGB CONC 35 g/dL (31-37); MEAN CORPUSCULAR VOLUME 92 fL (79-100); MONO # 0.8 x10^3/uL (0.0-1.1); MONO % 11 % (0-9); NEUT # 2.8 x10^3uL (1.8-7.7); NEUT % 38 % (31-73); PLATELET COUNT 250 x10^3/uL (140-400); RED BLOOD COUNT 4.82 x10^6/uL (4.30-5.70); RED CELL DISTRIBUTION WIDTH 13.3 % (11.5-14.5); WHITE BLOOD COUNT 7.3 x10^3/uL (4.0-11.0)
[2020-10-01 09:36] LABS: CALCIUM 8.6 mg/dL (8.5-10.1); CREATININE 0.9 mg/dL (0.7-1.3); GFR 83.7; POTASSIUM 3.9 mmol/L (3.5-5.1)
[2020-10-01 09:48] LABS: ALBUMIN 3.5 g/dL (3.4-5.0); TOTAL BILIRUBIN 0.2 mg/dL (0.2-1.0); TOTAL PROTEIN 6.9 g/dL (6.4-8.2)
--- NOTE | 2020-10-01 10:04 | PHYS DOC ---
Past History Past Medical History: CVA, High Cholesterol, Hypertension, VT, Other Past Surgical History: Angioplasty, Other Additional Past Surgical Histo: HIP SX, LEG SX Smoking: Cigarettes, Greater than 1 pack/day Alcohol Use: Occasionally Drug Use: None Adult General Chief Complaint Chief Complaint: OTHER COMPLAINTS HPI HPI Patient is a 70M with a past medical history of hypertension, hyperlipidemia and prior VT status post Extensa presents emergency department complaint of left- sided arm pain. Of note the patient's history has been inconsistent but he did tell me that 3 days ago he woke up from sleep with pain of the left anterior shoulder and left bicep. Patient also notes pain in the left anterior chest. States it is worse when he attempts to move his arm. Denies any fever, chills, chest pain shortness of breath. Denies any lower extremity weakness or numbness. Denies any lower extremity pain. Review of Systems Review of Systems Constitutional: Denies fever or chills [] Eyes: Denies change in visual acuity, redness, or eye pain [] HENT: Denies nasal congestion or sore throat [] Respiratory: Denies cough or shortness of breath [] Cardiovascular: No additional information not addressed in HPI [] GI: Denies abdominal pain, nausea, vomiting, bloody stools or diarrhea [] : Denies dysuria or hematuria [] Musculoskeletal: Denies back pain or joint pain [] Integument: Denies rash or skin lesions [] Neurologic: Denies headache, focal weakness or sensory changes [] Endocrine: Denies polyuria or polydipsia [] All other systems were reviewed and found to be within normal limits, except as documented in this note. Allergies Allergies Allergies Coded Allergies Type Severity Reaction Last Updated Verified No Known Drug Allergies 04/14/14 No Physical Exam Physical Exam Constitutional: Well developed, well nourished, no acute distress, non-toxic appearance. [] HENT: Normocephalic, atraumatic, bilateral external ears normal, oropharynx moist, no oral exudates, nose normal. [] Eyes: PERRLA, EOMI, conjunctiva normal, no discharge. [] Neck: Normal range of motion, no tenderness, supple, no stridor. [] Cardiovascular:Heart rate regular rhythm, no murmur [] Lungs & Thorax: Bilateral breath sounds clear to auscultation [] Abdomen: Bowel sounds normal, soft, no tenderness, no masses, no pulsatile ma sses. [] Skin: Warm, dry, no erythema, no rash. [] Back: No tenderness, no CVA tenderness. [] Extremities: No tenderness, no cyanosis, no clubbing, ROM intact, no edema. Mild tenderness over the left anterior deltoid and left anterior bicep but this appears to be distractible. No discernible neurovascular deficit Neurologic: Alert and oriented X 3, normal motor function, normal sensory function, no focal deficits noted. [] Psychologic: Affect normal, judgement normal, mood normal. [] Current Patient Data Vital Signs Vital Signs Date Time Temp Pulse Resp B/P (MAP) Pulse Ox O2 Delivery O2 Flow Rate FiO2 10/01/20 09:19 97.9 77 18 128/74 (92) 96 Lab Results Laboratory Tests Test 10/01/20 09:05 White Blood Count 7.3 x10^3/uL (4.0-11.0) Red Blood Count 4.82 x10^6/uL (4.30-5.70) Hemoglobin 15.4 g/dL (13.0-17.5) Hematocrit 44.5 % (39.0-53.0) Mean Corpuscular Volume 92 fL (79-100) Mean Corpuscular Hemoglobin 32 pg (25-35) Mean Corpuscular Hemoglobin Concent 35 g/dL (31-37) Red Cell Distribution Width 13.3 % (11.5-14.5) Platelet Count 250 x10^3/uL (140-400) Neutrophils (%) (Auto) 38 % (31-73) Lymphocytes (%) (Auto) 47 % (24-48) Monocytes (%) (Auto) 11 % (0-9) H Eosinophils (%) (Auto) 3 % (0-3) Basophils (%) (Auto) 1 % (0-3) Neutrophils # (Auto) 2.8 x10^3uL (1.8-7.7) Lymphocytes # (Auto) 3.4 x10^3/uL (1.0-4.8) Monocytes # (Auto) 0.8 x10^3/uL (0.0-1.1) Eosinophils # (Auto) 0.2 x10^3/uL (0.0-0.7) Basophils # (Auto) 0.1 x10^3/uL (0.0-0.2) Sodium Level 140 mmol/L (136-145) Potassium Level 3.9 mmol/L (3.5-5.1) Chloride Level 105 mmol/L (98-107) Carbon Dioxide Level 24 mmol/L (21-32) Anion Gap 11 (6-14) Blood Urea Nitrogen 23 mg/dL (8-26) Creatinine 0.9 mg/dL (0.7-1.3) Estimated GFR (Cockcroft-Gault) 83.7 BUN/Creatinine Ratio 26 (6-20) H Glucose Level 138 mg/dL (70-99) H Calcium Level 8.6 mg/dL (8.5-10.1) Magnesium Level 2.0 mg/dL (1.8-2.4) Total Bilirubin 0.2 mg/dL (0.2-1.0) Aspartate Amino Transferase (AST) 20 U/L (15-37) Alanine Aminotransferase (ALT) 37 U/L (16-63) Alkaline Phosphatase 124 U/L (46-116) H Creatine Kinase 60 U/L (39-308) Troponin I Quantitative < 0.017 ng/mL (0-0.055) AA-Xra-Z-Type Natriuretic Peptide 195 pg/mL (0-124) H Total Protein 6.9 g/dL (6.4-8.2) Albumin 3.5 g/dL (3.4-5.0) Albumin/Globulin Ratio 1.0 (1.0-1.7) EKG EKG NSR, no ST or T wave changes, intervals normal, no STEMI Radiology/Procedures Radiology/Procedures Chest AP portable at 1028: Reason for examination: Chest pain. Comparison is made to previous study dated 05/04/2019. The heart size is normal. Mediastinum is unremarkable. Lung barrios show mild hazy opacities bilaterally. No gross pleural effusions are seen. No pneumothorax is evident. No acute bony abnormalities are seen. IMPRESSION: Hazy opacities bilaterally which are predominantly lower lobe. Electronically signed by: Raisa Aldrich MD (10/01/2020 10:51 AM) [id number] Heart Score Risk Factors: Risk Factors: DM, Current or recent (<one month) smoker, HTN, HLP, family history of CAD, obesity. Risk Scores: Risk Factors: DM, Current or recent (<one month) smoker, HTN, HLP, family history of CAD, obesity. Course & Med Decision Making Course & Med Decision Making Pertinent Labs and Imaging studies reviewed. (See chart for details) 70-year-old male presents emergency department complaining of left anterior arm pain. At this time the patient's history and physical are inconsistent between different providers as difficulty determining an accurate diagnosis. There is concern for cardiac issue or trauma to the area. Will obtain ACS rule out and x-ray of left shoulder and reevaluate. 12:59 -work-up is currently negative. Patient was given Tylenol and symptoms have improved. Patient does not demonstrate any signs of ongoing chest pain. Also since the patient has a single troponin is symptoms started 3 days ago I feel like this is sufficient to rule out acute coronary syndrome. At this time will discharge patient. Patient is verbalized understanding and agreement with discharge plan Dragon Disclaimer Dragon Disclaimer This electronic medical record was generated, in whole or in part, using a voice recognition dictation system. Departure Departure: Impression: Primary Impression: Strain of left upper arm Disposition: 01 DC HOME SELF CARE/HOMELESS Condition: GOOD Referrals: KAY ZAMORA (PCP) Additional Instructions: Thank you for coming to our emergency department. You were seen for your arm pain. A work-up was done to rule out any involvement of your chest, heart or shoulder joint. This appears to be negative. Please return the emergency department if there is any sudden worsening of your symptoms, fever chills or worsening chest pain KRISTIAN NEWMAN MD Oct 01, 2020 10:03
--- NOTE | 2020-10-01 10:51 | RAD ---
Examination: 2 views of the left shoulder HISTORY: History of left shoulder pain COMPARISON: None available. FINDINGS: The humerus head is within the glenoid. Mild joint space loss identified in the glenohumeral joint, a cromioclavicular joint. There is no acute fracture identified. IMPRESSION: Mild degenerative changes identified in the left glenohumeral joint, acromioclavicular joint. Electronically signed by: Alok Haynes MD (10/01/2020 10:49 AM) [id number]
--- NOTE | 2020-10-01 10:54 | RAD ---
Chest AP portable at 1028: Reason for examination: Chest pain. Comparison is made to previous study dated 05/04/2019. The heart size is normal. Mediastinum is unremarkable. Lung barrios show mild hazy opacities bilateral ly. No gross pleural effusions are seen. No pneumothorax is evident. No acute bony abnormalities are seen. IMPRESSION: Hazy opacities bilaterally which are predominantly lower lobe. Electronically signed by: Raisa Aldrich MD (10/01/2020 10:51 AM) [id number]
[2020-10-01] MEDS ORDERED: ACETAMINOPHEN 500 MG TABLET PO ONE (11:45)
--- NOTE | 2020-10-02 10:00 | EKG ---
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
== END 2020-10-01 13:10 | disposition home or self-care (01) ==
LOC: ER 08:41
DX: S46.912A Strain of unspecified muscle, fascia and tendon at shoulder and upper arm level, left arm, initial encounter (principal); I10 Essential (primary) hypertension; E78.00 Pure hypercholesterolemia, unspecified; I25.2 Old myocardial infarction; E78.5 Hyperlipidemia, unspecified; F17.210 Nicotine dependence, cigarettes, uncomplicated; Z86.73 Personal history of transient ischemic attack (TIA), and cerebral infarction without residual deficits; Z98.61 Coronary angioplasty status; X50.9XXA Other and unspecified overexertion or strenuous movements or postures, initial encounter; Y93.89 Activity, other specified; Y92.89 Other specified places as the place of occurrence of the external cause; Y99.8 Other external cause status
CPT/HCPCS: 36415; 71045; 73030; 80053; 82550; 83735; 83880; 84484; 85025; 85379; 85610; 93005; 99285

== ENCOUNTER → 2021-03-02 | Outpatient (CLI) | payer MEDICARE, MEDICAID ==
--- NOTE | 2021-03-02 13:44 | RAD ---
EXAM: Left shoulder, 3 views. HISTORY: Pain. COMPARISON: 10/01/2020 FINDINGS: 3 views of the left shoulder obtained. There is no acute fracture, dislocation or subluxati on. There is acromioclavicular joint space narrowing with subchondral sclerosis and spurring. This in cludes tiny inferolateral inferiorly directed distal clavicular and subacromial spurs. IMPRESSION: 1. No acute osseous finding. 2. Mild acromioclavicular joint osteoarthritis. Electronically signed by: Haylee Bragg MD (03/02/2021 1:41 PM) [id number]
== END ==
LOC: PMG 13:19
PROVIDERS: ATTEND Nurse Practitioner Family
DX: M19.012 Primary osteoarthritis, left shoulder (principal)
CPT/HCPCS: 73030

== ENCOUNTER → 2021-03-09 | Outpatient (CLI) | payer OTHER, MEDICAID ==
--- NOTE | 2021-03-09 09:19 | RAD ---
INDICATION: Reason: constipation / Spl. Instructions: / History: COMPARISON: April 2020 IMPRESSION: Abdomen: 2 views obtained. Degenerative changes the spine. Intramedullary camille at the left proximal fe mur. Air scattered throughout the large and small bowel in a nonspecific but not grossly obstructive pattern. Electronically signed by: Surinder Lantigua MD (03/09/2021 9:17 AM) [id number]
== END ==
LOC: PMG 08:23
PROVIDERS: ATTEND Nurse Practitioner Family
DX: K59.00 Constipation, unspecified (principal)
CPT/HCPCS: 74018

== ENCOUNTER 2021-04-09 11:55 | Observation (INO) | payer OTHER, MEDICAID ==
[~2021-04-09] VITALS: Ht 170.2 cm; Wt 81.5 kg
[2021-04-09 12:44] LABS: BASO # 0.1 x10^3/uL (0.0-0.2); BASO % 1 % (0-3); EOS # 0.2 x10^3/uL (0.0-0.7); EOS % 3 % (0-3); HEMOGLOBIN 15.6 g/dL (13.0-17.5); LYMPH # 3.2 x10^3/uL (1.0-4.8); LYMPH % 45 % (24-48); MEAN CORPUSCULAR HEMOGLOBIN 33 pg (25-35); MEAN CORPUSCULAR HGB CONC 36 g/dL (31-37); MEAN CORPUSCULAR VOLUME 93 fL (79-100); MONO # 0.7 x10^3/uL (0.0-1.1); MONO % 10 % (0-9); NEUT # 2.9 x10^3uL (1.8-7.7); NEUT % 41 % (31-73); PLATELET COUNT 274 x10^3/uL (140-400); RED BLOOD COUNT 4.72 x10^6/uL (4.30-5.70); RED CELL DISTRIBUTION WIDTH 13.8 % (11.5-14.5); WHITE BLOOD COUNT 7.2 x10^3/uL (4.0-11.0)
[2021-04-09 12:50] LABS: CALCIUM 9.2 mg/dL (8.5-10.1); CREATININE 1.1 mg/dL (0.7-1.3); GFR 66.2; POTASSIUM 4.2 mmol/L (3.5-5.1)
--- NOTE | 2021-04-09 12:51 | PHYS DOC ---
Past History Past Medical History: CVA, High Cholesterol, Hypertension, FL, Other (CANDI DENNY APRN) Past Surgical History: Angioplasty, Other Additional Past Surgical Histo: HIP SX, LEG SX (CANDI DENNY APRN) Smoking: Cigarettes, Greater than 1 pack/day Alcohol Use: None Drug Use: None (CANDI DENNY APRN) General Adult EDM: Chief Complaint: CHEST PAIN HPI: HPI: Patient is a 71-year-old male presents with left-sided, sharp chest pain since midnight. Patient reports pain has been constant. Patient states that he is able to reproduce the pain and pain is worse with movement. Patient states that pain radiates into his left arm. Reports shortness of breath. Denies nausea/vomiting/diarrhea, fever. "I was just sitting in my chair when the pain started". Patient states "I take a daily baby aspirin every day and a blood thinner but I am unsure of what the name is". Patient is a smoker and reports FL 5 years ago. Patient has a history of CHF, hypertension, FL, hyperlipidemia. (CANDI DENNY APRN) Review of Systems: Review of Systems: Constitutional: Denies fever or chills Eyes: Denies change in visual acuity HENT: Denies nasal congestion or sore throat Respiratory: Reports shortness of breath, denies cough Cardiovascular: Reports left-sided, sharp chest pain GI: Denies abdominal pain, nausea, vomiting, bloody stools or diarrhea : Denies dysuria Musculoskeletal: Denies back pain or joint pain Integument: Denies rash Neurologic: Denies headache, focal weakness or sensory changes Endocrine: Denies polyuria or polydipsia Lymphatic: Denies swollen glands Psychiatric: Denies depression or anxiety (CANDI DENNY APRN) Allergies: Allergies: Allergies Coded Allergies Type Severity Reaction Last Updated Verified No Known Drug Allergies 04/14/14 No (CANDI DENNY APRN) Physical Exam: PE: Constitutional: Well developed, well nourished, no acute distress, non-toxic appearance. [] HENT: Normocephalic, atraumatic, bilateral external ears normal, oropharynx moist, no oral exudates, nose normal. [] Eyes: PERRLA, EOMI, conjunctiva normal, no discharge. [] Neck: Normal range of motion, no tenderness, supple, no stridor. [] Cardiovascular:Heart rate regular rhythm, no murmur [] Lungs & Thorax: Bilateral breath sounds clear to auscultation [] Abdomen: Bowel sounds normal, soft, no tenderness, no masses, no pulsatile masses. [] Skin: Warm, dry, no erythema, no rash. [] Back: No tenderness, no CVA tenderness. [] Extremities: No tenderness, no cyanosis, no clubbing, ROM intact, no edema. [] Neurologic: Alert and oriented X 3, normal motor function, normal sensory function, no focal deficits noted. [] Psychologic: Affect normal, judgement normal, mood normal. [] (CANDI DENNY APRN) Current Patient Data: Vital Signs: Vital Signs Date Time Temp Pulse Resp B/P (MAP) Pulse Ox O2 Delivery O2 Flow Rate FiO2 04/09/21 11:55 98.4 85 20 122/83 98 Room Air (CANDI DENNY APRN) EKG: EKG: Sinus rhythm, PVCs. Heart rate 76 bpm. [] Second EKG taken patient reports chest pain. Sinus rhythm, PVCs. Heart rate 70 bpm. At 1234[address] No [address] elevation. (CANDI DENNY APRN) Radiology/Procedures: Radiology/Procedures: []XR CHEST 1V History: Reason: CHEST PAIN / Spl. Instructions: / History: Comparison: October 01, 2020 Findings: Ill-defined mid and bibasilar opacities. No pleural effusion. No pneumothorax. Impression: 1. Ill-defined mid and bibasilar opacities, may represent atelectasis or developing consolidations. If persistent clinical concern, recommend follow-up. Electronically signed by: Franklin Reina DO (04/09/2021 12:59 PM) [id number] (CANDI DENNY APRN) Heart Score: C/O Chest Pain: Yes HEART Score for Chest Pain: HEART Score for Chest Pain Response (Comments) Value History Highly Suspicious 2 ECG Normal 0 Age > 65 2 Risk Factors >3 Risk Factors or Hx CAD 2 Troponin < Normal Limit 0 Total 6 Risk Factors: Risk Factors: DM, Current or recent (<one month) smoker, HTN, HLP, family history of CAD, obesity. Risk Scores: Score 0 - 3: 2.5% MACE over next 6 weeks - Discharge Home Score 4 - 6: 20.3% MACE over next 6 weeks - Admit for Clinical Observation Score 7 - 10: 72.7% MACE over next 6 weeks - Early Invasive Strategies (CANDI DENNY APRN) Course & Med Decision Making: Course & Med Decision Making Pertinent Labs and Imaging studies reviewed. (See chart for details) [] 8-year-old male who presents with left-sided, sharp chest pain since midnight. Patient reports pain has been constant. Pain is reproducible and worse with movement. Pain is radiating into his left arm. Patient is also reporting some shortness of breath. Denies history of DVT or PE. Patient has a history of FL in 2015. Patient is currently on a blood thinner but unable to provide medication list. EKG shows sinus rhythm with PVCs. Heart rate was 78 beats beats per minute. Negative for STEMI. Chest x-ray is suspicious for possible developing consolidations. Patient started on Rocephin and azithromycin. All labs are unremarkable. Troponin is negative. Heart score of 6. Explained to patient that he will most likely be admitted to the hospital for observation due to current symptoms and past medical history of FL. Patient's PCP is Dr. Rhodes. Spoke with Dr. Vann regarding admission plan. Dr. Vann wants to admit patient for pneumonia and chest pain. Spoke with patient and also patient's who is also okay with admission plan. (CANDI DENNY APRN) Dragon Disclaimer: Dragon Disclaimer: This electronic medical record was generated, in whole or in part, using a voice recognition dictation system. (CANDI DENNY APRN) Attending Co-Sign The patient was seen and interviewed as well as examined at the bedside. The chart was reviewed. The case was discussed. Agree with the plan of care. (ERASTO BRANCH DO) Departure Departure: Impression: Primary Impression: Pneumonia Qualified Codes: J18.9 - Pneumonia, unspecified organism Additional Impression: Chest pain Qualified Codes: R07.89 - Other chest pain Disposition: ADMITTED INPATIENT Admitting Physician: Danilo Vann (CANDI DENNY APRN) Condition: STABLE Referrals: KAY ZAMORA (PCP) CANDI DENNY APRN Apr 09, 2021 12:51 ERASTO BRANCH DO Apr 10, 2021 06:19
--- NOTE | 2021-04-09 13:02 | RAD ---
XR CHEST 1V History: Reason: CHEST PAIN / Spl. Instructions: / History: Comparison: October 01, 2020 Findings: Ill-defined mid and bibasilar opacities. No pleural effusion. No pneumothorax. Impression: 1. Ill-defined mid and bibasilar opacities, may represent atelectasis or developing consolidations. If persistent clinical concern, recommend follow-up. Electronically signed by: Franklin Reina DO (04/09/2021 12:59 PM) [id number]
[2021-04-09 13:03] LABS: ALBUMIN 4.5 g/dL (3.4-5.0); ALBUMIN/GLOBULIN RATIO 1.5 (1.0-1.7); TOTAL PROTEIN 7.5 g/dL (6.4-8.2)
[2021-04-09 13:04] LABS: TOTAL BILIRUBIN 0.6 mg/dL (0.2-1.0)
[2021-04-09] MEDS ORDERED: AZITHROMYCIN 500 MG in IV NORMAL SALINE 250ML 250 ML IV ONE (13:30)
[2021-04-09] MEDS ORDERED: cefTRIAXone SODIUM 1 GM VIAL ONE (14:07)
[2021-04-09] MEDS ORDERED: IV NORMAL SALINE 50ML 50 ML ONE (14:07)
[2021-04-09] MEDS ORDERED: IV NORMAL SALINE 250ML 250 ML ONE (14:07)
[2021-04-09] MEDS ORDERED: AZITHROMYCIN 500 MG VIAL. IV ONE (14:07)
[2021-04-09] MEDS ORDERED: MORPHINE SULFATE 4 MG/ML DISP.SYRIN. IV ONE (14:30)
[2021-04-09 14:42] LABS: BILIRUBIN,URINE NEG (NEG); CLARITY,URINE CLEAR; COLOR,URINE YELLOW; GLUCOSE,URINE NEG (NEG); NITRITE,URINE NEG (NEG); UROBILINOGEN,URINE 0.2 mg/dL (0.2 mg/dL)
[2021-04-09 14:44] LABS: BACTERIA,URINE 0 /HPF (0-FEW); RBC,URINE 0 /HPF (0-2); WBC,URINE 0 /HPF (0-4)
[2021-04-09 14:45] LABS: SQUAMOUS EPITHELIAL CELL,UR OCC /LPF
[2021-04-09] MEDS ORDERED: ACETAMINOPHEN/CODEINE 300/30MG TABLET PO PRN (16:30)
[2021-04-09 16:33] VITALS: BP 128/82
[2021-04-09] MEDS ORDERED: MECLIZINE 12.5 MG TABLET. PO PRN (17:30)
[2021-04-09] MEDS ORDERED: ONDANSETRON ODT 4 MG TAB.RAPDIS PO PRN (17:45)
[2021-04-09] MEDS ORDERED: METHOCARBAMOL 500 MG TABLET PO PRN (17:45)
[2021-04-09] MEDS ORDERED: NON FORMULARY ITEM (Ipratropium/Albuterol Sulfate (Combivent Respimat Inhal) 2 PUFF) INH SCH (18:00)
[2021-04-09] MEDS: IPRATRPIUM/ALBUTEROL 0.5/2.5MG 3 ML NEBU. NEB SCH ×2 (18:00→21:44)
[2021-04-09] MEDS: PANTOPRAZOLE 40 MG TABLET. PO SCH (18:11)
[2021-04-09] MEDS: CARVEDILOL 6.25 MG TABLET PO SCH (18:11)
--- NOTE | 2021-04-09 18:18 | HP ---
ADMIT DATE: 04/09/2021 HISTORY OF PRESENT ILLNESS: The patient is a 71-year-old male patient who presented to the Emergency Room with a left-sided chest pain that is sharp since midnight. He woke up with this pain that is constant. He rated about 8/10 in severity. He denied any nausea or vomiting. Denied any diaphoresis. Did complain of some shortness of breath. His pain is reproducible on the left side, mostly by palpation on the left infraclavicular area in left shoulder, is not aggravated by taking a deep breath or worsened by cough or worsened by movement. He was extensively investigated in the Emergency Room and has had an EKG which showed he was in sinus rhythm at heart rate of 76 beats per minute with multiple premature ventricular contractions. His chest x-ray showed the patient has ill-defined mid and bibasilar opacities, may represent atelectasis or developing consolidation. Has had lab work which showed a white cell count to be normal. His chemistry was unremarkable. His first set of cardiac enzymes showed troponin to be less than 0.017. His prothrombin time, INR, APTT and D-dimer all were normal, and his urinalysis is essentially unremarkable. The patient was admitted to rule out myocardial infarction, although it looks like more of a musculoskeletal given that he has marked limitation of his left shoulder abduction, internal and external rotation that aggravates or reduces the pain. PAST MEDICAL HISTORY: Significant for hypertension, hyperlipidemia. According to him, he has also had myocardial infarction and has 6 stents deployed to his heart, although he was unable to specifically state the hospital where it was done. He also complained of dysphagia and difficulty swallowing, although he has not lost any weight. PAST SURGICAL HISTORY: Significant for PCI with stent deployment x 6. He has also cholecystectomy, left total hip arthroplasty, right tib and fibula fracture status post open reduction internal fixation. ALLERGIES: He has no known drug allergies. MEDICATIONS: He is currently on following medications: He is on ipratropium bromide and albuterol sulfate, Combivent Respimat 2 puffs every 6 hours. He is on Robaxin 750 mg two times a day, Plavix 75 mg once a day, Ranexa 1000 mg twice a day, atorvastatin calcium 20 mg at bedtime, omega 3 fatty acids 1 capsule once a day, metoprolol tartrate 25 mg twice a day, aspirin 81 mg once a day, meloxicam 7.5 mg daily. He is on acetaminophen with codeine one tablet twice a day. He is on meclizine 25 mg 3 times a day, ondansetron 4 mg every 6 hours, Protonix 40 mg daily, prednisone 50 mg daily, garlic 1000 mg once a day. FAMILY HISTORY: He has 4 sisters and 5 brothers. His oldest brother has diabetes. His father at age of 62 because of brain tumor. Mother at age of 75 because of bone cancer. SOCIAL HISTORY: He lives with his significant other, has no children. He smokes half a pack a day, does not drink alcohol or recreational drugs. 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 REVIEW OF SYSTEMS: As per history of present illness. PHYSICAL EXAMINATION: GENERAL: When I examined him this afternoon, he looked well and was clearly in no apparent respiratory distress. There was no pallor, jaundice, cyanosis or thyromegaly. No jugular venous distention. No lower limb edema. VITAL SIGNS: His heart rate was 85, blood pressure is 122/83, temperature was 98.4, respiratory rate was 20 and oxygen saturation was 98% on room air. HEAD, EYES, EARS, NOSE, AND THROAT: Normocephalic, atraumatic. NECK: Supple. HEART: Normal first and second heart sounds, no gallop or murmur. CHEST: Shows central trachea, equal bilateral chest expansion, air entry, vesicular breath sounds with bilateral basal crepitations. I could not appreciate any rhonchi. ABDOMEN: His abdomen was distended, soft, nontender, no guarding or rigidity. No organomegaly. All hernial orifice intact. Bowel sounds normal. NEUROLOGIC: He was grossly intact. EXTREMITIES: Examination of the left shoulder compared to the right shoulder is tender to touch and with marked limitation of left shoulder abduction, external and internal rotation. LABORATORY DATA: His lab work on arrival showed a white cell count 7200, hemoglobin 15.6, hematocrit 44, MCV 93 and platelet count 274,000. His chemistry showed a serum sodium 142, potassium 4.2, chloride 105, bicarbonate 28, anion gap of 9, BUN 21, creatinine 1.1. Estimated GFR was 66 mL per minute. His glucose was 98, calcium was 9.2, magnesium was 2. Total bilirubin, AST, ALT, alkaline phosphatase were normal. ____, albumin was 7.5 and total protein was 4.5. His prothrombin time, INR, APTT and D-dimer were normal. His urinalysis essentially unremarkable. His chest x-ray showed ill-defined mid and bibasilar opacities, may represent atelectasis or developing consolidation. ASSESSMENT AND PLAN: The patient was admitted with possible community-acquired pneumonia and pain in the left shoulder with restricted movement. He does have history of coronary artery disease status post 6 stents deployment according to him and hyperlipidemia as well as hypertension. He is also a smoker. My plan is to do 2 more sets of cardiac enzymes, check his fasting lipid profile tomorrow morning and consult the butadiene compressor operator. Meanwhile, continue with all his home medications. YANA/PATY/JUDY DR: Femi TID: [id number]
[2021-04-09 19:56] VITALS: BP 101/66
[2021-04-09] MEDS: RANOLAZINE 500 MG TAB.ER.12H PO SCH (20:22)
[2021-04-09] MEDS ORDERED: ATORVASTATIN CALCIUM 20 MG TABLET PO SCH ×2 (21:00)
[2021-04-09] MEDS ORDERED: METOPROLOL TART IMMED RELEASE 25 MG TABLET. PO SCH (21:00)
[2021-04-10 02:39] VITALS: BP 105/71
[2021-04-10] MEDS: IPRATRPIUM/ALBUTEROL 0.5/2.5MG 3 ML NEBU. NEB SCH ×2 (06:00→09:30)
[2021-04-10] MEDS ORDERED: ASPIRIN ENTERIC COATED 81 MG TABLET.DR. PO SCH (06:00)
[2021-04-10 06:19] VITALS: BP 114/78
--- NOTE | 2021-04-10 06:29 | EKG ---
[address] [address] Test Date: 2021-04-09 Test Time: 12:34:32 Pat Name: ZAIDA CARRERO Department: Room: 113 A Gender: M Clinical Safety Manager: THERESE : 1950 Requested By: CANDI DENNY Order Number: [id number] Reading MD: Roger Cerda Measurements Intervals [place] Rate: 78 P: 48 AK: 176 QRS: 19 QRSD: 104 T: 54 QT: 406 QTc: 467 Interpretive Statements SINUS RHYTHM VENTRICULAR PREMATURE COMPLEX(ES) ABNORMAL ECG Electronically Signed On 04-11-2021 11:58:58 CDT by Roger Cerda
--- NOTE | 2021-04-10 06:30 | EKG ---
[address] [address] Test Date: 2021-04-09 Test Time: 13:05:57 Pat Name: ZAIDA CARRERO Department: Room: 113 A Gender: M Traveling Inventory Associate: THERESE : 1950 Requested By: CANDI DENNY Order Number: [id number] Reading MD: Roger Cerda Measurements Intervals [place] Rate: 76 P: 41 CA: 186 QRS: 10 QRSD: 102 T: 46 QT: 402 QTc: 457 Interpretive Statements SINUS RHYTHM VENTRICULAR PREMATURE COMPLEX(ES) INCOMPLETE RIGHT BUNDLE BRANCH BLOCK Electronically Signed On 04-11-2021 11:58:32 CDT by Roger Cerda
[2021-04-10 07:04] LABS: CALCIUM 8.2 mg/dL (8.5-10.1); GFR 73.9; POTASSIUM 4.1 mmol/L (3.5-5.1)
--- NOTE | 2021-04-10 08:22 | PDOC2 ---
CARDIAC CONSULT DATE OF CONSULT DOS: DATE: 04/10/21 TIME: 08:19 REASON FOR CONSULT Reason for Consult Chest pain REFERRING PHYSICIAN Referring Physician Dr. Vann SOURCE Source: Chart review, Patient HPI History of Present Illness This is a 71 yo male who presented secondary to sharp pain in upper left chest/shoulder. Patient reports pain began yesterday upon awakening. Sharp pain in his left shoulder and radiates down his left arm. Also having shooting pain down his right left. Left chest/shoulder pain worse with lifting left arm. Also hurts of press on the left shoulder region. Pain associated with nausea. No shortness of breath, dizziness, or diaphoresis. Patient does have a history of AR and CAD s/p PCI/stent. Patient reports pain to be very different from what he experienced with AR previously. PAST MEDICAL HISTORY Cardiovascular: CAD, HTN, hyperipidemia Pulmonary: COPD GI: GERD, Peptic Ulcer disease Musculoskeletal: Osteoarthritis PAST SURGICAL HISTORY Past Surgical History: Cholecystectomy, Total hip replacement (left ) FAMILY HISTORY Family History: Diabetes SOCIAL HISTORY Smoke: <1 pack per day ALCOHOL: none Drugs: None Lives: with Family CURRENT MEDICATIONS Current Medications Current Medications Azithromycin 500 mg/Sodium Chloride 250 ml @ 250 mls/hr 1X ONCE IV Last administered on 04/09/21at 14:16; Start 04/09/21 at 13:30; Stop 04/09/21 at 14:29; Status DC Ceftriaxone Sodium 1 gm/ Sodium Chloride 50 ml @ 100 mls/hr 1X ONCE IV Last administered on 04/09/21at 14:16; Start 04/09/21 at 13:30; Stop 04/09/21 at 13:59; Status DC Sodium Chloride 250 ml @ As Directed STK-MED ONCE .ROUTE ; Start 04/09/21 at 14:07; Stop 04/09/21 at 14:07; Status DC Sodium Chloride 50 ml @ As Directed STK-MED ONCE .ROUTE ; Start 04/09/21 at 14:07; Stop 04/09/21 at 14:07; Status DC Azithromycin (Zithromax) 500 mg STK-MED ONCE IV ; Start 04/09/21 at 14:07; Stop 04/09/21 at 14:07; Status DC Ceftriaxone Sodium (Rocephin) 1 gm STK-MED ONCE .ROUTE ; Start 04/09/21 at 14:07; Stop 04/09/21 at 14:07; Status DC Morphine Sulfate (Morphine 4mg Syringe) 4 mg 1X ONCE IV Last administered on 04/09/21at 14:23; Start 04/09/21 at 14:30; Stop 04/09/21 at 14:31; Status DC Acetaminophen/ Codeine Phosphate (Tylenol #3) 1 tab PRN BID PRN PO MODERATE PAIN Last administered on 04/09/21at 22:29; Start 04/09/21 at 16:30 Aspirin (Aspirin Enteric Coated) 81 mg DAILY06 PO Last administered on 04/10/21at 05:57; Start 04/10/21 at 06:00 Atorvastatin Calcium (Lipitor) 20 mg QHS PO ; Start 04/09/21 at 21:00; Stop 04/09/21 at 16:47; Status DC Clopidogrel Bisulfate (Plavix) 75 mg DAILY PO ; Start 04/10/21 at 09:00 Meloxicam (Mobic) 7.5 mg DAILY PO ; Start 04/10/21 at 09:00; Status UNV Metoprolol Tartrate (Lopressor) 25 mg BID PO ; Start 04/09/21 at 21:00; Stop 04/09/21 at 16:47; Status DC Pantoprazole Sodium (Protonix) 40 mg DAILY PO Last administered on 04/09/21at 18:11; Start 04/09/21 at 17:30 Non-Formulary Medication (Garlic ) 1,000 mg DAILY PO ; Start 04/10/21 at 09:00; Status UNV Non-Formulary Medication (Ipratropium/ Albuterol Sulfate (Combivent Respimat Inhal)) 2 puff Q6HRS INH ; Start 04/09/21 at 18:00; Status UNV Meclizine HCl (Antivert) 25 mg PRN TID PRN PO DIZZINESS; Start 04/09/21 at 17:30 Methocarbamol (Robaxin) 750 mg PRN TID PRN PO MUSCLE SPASMS Last administered on 04/09/21at 22:29; Start 04/09/21 at 17:45 Fish Oil (Fish Oil) 1,000 mg DAILY PO ; Start 04/10/21 at 09:00 Ondansetron HCl (Zofran Odt) 4 mg PRN Q6HRS PRN PO NAUSEA/VOMITING; Start 04/09/21 at 17:45 Non-Formulary Medication (Prednisone ) 1 tab DAILY PO ; Start 04/10/21 at 09:00; Status UNV Non-Formulary Medication (Prednisone ) 1 tab DAILY PO ; Start 04/10/21 at 09:00; Status UNV Ranolazine (Ranexa) 1,000 mg BID PO Last administered on 04/09/21at 20:22; Start 04/09/21 at 21:00 Non-Formulary Medication ([joint treatment] ) 500 mg DAILY PO ; Start 04/10/21 at 09:00; Status UNV Atorvastatin Calcium (Lipitor) 40 mg QHS PO Last administered on 04/09/21at 20:23; Start 04/09/21 at 21:00 Celecoxib (CeleBREX) 200 mg DAILY PO ; Start 04/10/21 at 09:00 Carvedilol (Coreg) 6.25 mg BIDWMEALS PO Last administered on 04/09/21at 18:11; Start 04/09/21 at 18:00 Furosemide (Lasix) 20 mg DAILY PO ; Start 04/10/21 at 09:00 Losartan Potassium (Cozaar) 50 mg DAILY PO ; Start 04/10/21 at 09:00 Albuterol/ Ipratropium (Duoneb) 3 ml Q6HRS NEB Last administered on 04/10/21at 06:00; Start 04/09/21 at 18:00 Active Scripts Active Tylenol With Codeine #3 Tablet (Acetaminophen With Codeine) 1 Each Tablet 1 Tab PO PRN BID PRN MDD 2 Tablet(s) 7 Days Robaxin-750 (Methocarbamol) 750 Mg Tablet 1 Tab PO TID PRN 7 Days Prednisone 50 Mg Tablet 1 Tab PO DAILY You received this medication in the emergency room today. You will starting your next dose tomorrow. Meloxicam 7.5 Mg Tablet 7.5 Mg PO DAILY Zofran (Ondansetron Hcl) 4 Mg Tablet 4 Mg PO Q6HRS PRN Meclizine Hcl 25 Mg Tablet 1 Tab PO TID PRN Prednisone 50 Mg Tablet 1 Tab PO DAILY Combivent Respimat Inhal (Ipratropium/Albuterol Sulfate) 4 Gm Aer.w.adap 2 Puff INH Q6HRS Reported Garlic 1,000 Mg Capsule 1,000 Mg PO DAILY Fish Oil 1,000 Mg Softgel ([place]-3/Dha/Epa/Fish Oil) 1 Each Capsule 1 Each PO DAILY Aspir 81 (Aspirin) 81 Mg Tablet.dr 81 Mg PO DAILY06 [joint treatment] 500 Mg PO DAILY Atorvastatin Calcium 20 Mg Tablet 20 Mg PO QHS Ranexa (Ranolazine) 1,000 Mg Tab.er.12h 1,000 Mg PO BID for angina last dose: 04/15 @ 9:02 AM next dose: 04/15 PM Metoprolol Tartrate 25 Mg Tablet 25 Mg PO BID for high blood pressure last dose: 04/15 @ 9:02 AM NEXT DOSE: 04/15 PM Protonix (Pantoprazole Sodium) 40 Mg Tablet.dr 40 Mg PO DAILY for reflux last dose: 04/15 @ 9:02 AM next dose: 04/16 AM Plavix (Clopidogrel Bisulfate) 75 Mg Tablet 75 Mg PO DAILY blood thinner last dose: 04/15 @ 9:02 AM next dose: 04/16 AM ALLERGIES Allergies: Coded Allergies: No Known Drug Allergies (Unverified , 04/14/14) ROS Review of Systems 14 point ROS conducted with pertinent positives noted above in HPI PHYSICAL EXAM General: Alert, Oriented X3, Cooperative, No acute distress HEENT: Atraumatic Lungs: Clear to auscultation, Other (tenderness left upper chest, shoulder ) Heart: Regular rate Abdomen: Soft, No tenderness Extremities: No edema, Normal pulses Skin: No breakdown Neuro: Normal speech, Sensation intact Psych/Mental Status: Mental status NL, Mood NL MUSCULOSKELETAL: Osteoarthritic changes both hands VITALS Vital Signs Vital Signs Date Time Temp Pulse Resp B/P (MAP) Pulse Ox O2 Delivery O2 Flow Rate FiO2 04/10/21 06:19 97.8 78 20 114/78 (90) 99 Room Air LABS LABS Laboratory Tests Test 04/09/21 12:20 04/09/21 12:55 04/09/21 14:15 04/09/21 15:45 White Blood Count 7.2 x10^3/uL (4.0-11.0) Red Blood Count 4.72 x10^6/uL (4.30-5.70) Hemoglobin 15.6 g/dL (13.0-17.5) Hematocrit 44.0 % (39.0-53.0) Mean Corpuscular Volume 93 fL (79-100) Mean Corpuscular Hemoglobin 33 pg (25-35) Mean Corpuscular Hemoglobin Concent 36 g/dL (31-37) Red Cell Distribution Width 13.8 % (11.5-14.5) Platelet Count 274 x10^3/uL (140-400) Neutrophils (%) (Auto) 41 % (31-73) Lymphocytes (%) (Auto) 45 % (24-48) Monocytes (%) (Auto) 10 % (0-9) Eosinophils (%) (Auto) 3 % (0-3) Basophils (%) (Auto) 1 % (0-3) Neutrophils # (Auto) 2.9 x10^3uL (1.8-7.7) Lymphocytes # (Auto) 3.2 x10^3/uL (1.0-4.8) Monocytes # (Auto) 0.7 x10^3/uL (0.0-1.1) Eosinophils # (Auto) 0.2 x10^3/uL (0.0-0.7) Basophils # (Auto) 0.1 x10^3/uL (0.0-0.2) Sodium Level 142 mmol/L (136-145) Potassium Level 4.2 mmol/L (3.5-5.1) Chloride Level 105 mmol/L (98-107) Carbon Dioxide Level 28 mmol/L (21-32) Anion Gap 9 (6-14) Blood Urea Nitrogen 21 mg/dL (8-26) Creatinine 1.1 mg/dL (0.7-1.3) Estimated GFR (Cockcroft-Gault) 66.2 BUN/Creatinine Ratio 19 (6-20) Glucose Level 98 mg/dL (70-99) Calcium Level 9.2 mg/dL (8.5-10.1) Magnesium Level 2.0 mg/dL (1.8-2.4) Total Bilirubin 0.6 mg/dL (0.2-1.0) Aspartate Amino Transf (AST/SGOT) 25 U/L (15-37) Alanine Aminotransferase (ALT/SGPT) 39 U/L (16-63) Alkaline Phosphatase 102 U/L (46-116) Troponin I Quantitative < 0.017 ng/mL (0-0.055) < 0.017 ng/mL (0-0.055) IO-Xay-F-Type Natriuretic Peptide 97 pg/mL (0-124) Total Protein 7.5 g/dL (6.4-8.2) Albumin 4.5 g/dL (3.4-5.0) Albumin/Globulin Ratio 1.5 (1.0-1.7) Prothrombin Time 9.9 SEC (9.4-11.4) Prothromb Time International Ratio 1.0 (0.9-1.1) Activated Partial Thromboplast Time 26 SEC (23-33) D-Dimer (Pilar) 0.50 mg/L (0.00-0.50) Urine Collection Type Unknown Urine Color Yellow Urine Clarity Clear Urine pH 6.0 Urine Specific [place] 1.020 Urine Protein Neg (NEG-TRACE) Urine Glucose (UA) Neg mg/dL (NEG) Urine Ketones (Stick) Neg mg/dL (NEG) Urine Blood Neg (NEG) Urine Nitrite Neg (NEG) Urine Bilirubin Neg (NEG) Urine Urobilinogen Dipstick 0.2 mg/dL (0.2 mg/dL) Urine Leukocyte Esterase Neg (NEG) Urine RBC 0 /HPF (0-2) Urine WBC 0 /HPF (0-4) Urine Squamous Epithelial Cells Occ /LPF Urine Bacteria 0 /HPF (0-FEW) Test 04/09/21 18:52 04/10/21 05:52 Troponin I Quantitative < 0.017 ng/mL (0-0.055) Sodium Level 141 mmol/L (136-145) Potassium Level 4.1 mmol/L (3.5-5.1) Chloride Level 106 mmol/L (98-107) Carbon Dioxide Level 26 mmol/L (21-32) Anion Gap 9 (6-14) Blood Urea Nitrogen 20 mg/dL (8-26) Creatinine 1.0 mg/dL (0.7-1.3) Estimated GFR (Cockcroft-Gault) 73.9 Glucose Level 92 mg/dL (70-99) Calcium Level 8.2 mg/dL (8.5-10.1) ECHOCARDIOGRAM Echocardiogram <Conclusion> Left ventricle systolic function is normal. The Ejection Fraction is 55%. Doppler and Color Flow revealed mild tricuspid regurgitation. The PA pressure was estimated at 28 mmHg. There is no evidence of significant pericardial effusion. DATE: 06/01/18 1515 STRESS TEST Stress Test Conclusion 1. Regadenoson cardioisotope stress test did not show any evidence of ischemia or infarct. 2. Normal left ventricular systolic function with ejection fraction calculated at 62%. 3. Low risk for cardiac events. DATE: 06/01/18 1517 ASSESSMENT/PLAN Assessment/Plan 1. Chest pain, atypical. AMI ruled out 2. CAD s/p PCI/stents; details unknown 3. Hypertension; controlled. 4. Hyperlipidemia; statin 5. COPD with persistent tobacco abuse; discussed/encouraged cessation Recommendations Resume secondary prevention Outpatient stress test Follow up with primary restaurant managing partner upon discharge. ALEKS CHÁVEZ APRN Apr 10, 2021 08:22
[2021-04-10] MEDS: RANOLAZINE 500 MG TAB.ER.12H PO SCH (08:30)
[2021-04-10] MEDS: PANTOPRAZOLE 40 MG TABLET. PO SCH (08:33)
[2021-04-10 08:34] VITALS: BP 114/78
[2021-04-10] MEDS: CARVEDILOL 6.25 MG TABLET PO SCH (08:34)
[2021-04-10] MEDS ORDERED: NON FORMULARY ITEM (Garlic 1,000 MG) PO SCH (09:00)
[2021-04-10] MEDS ORDERED: FUROSEMIDE 40 MG TABLET PO SCH (09:00)
[2021-04-10] MEDS ORDERED: CLOPIDOGREL BISULFATE 75 MG TABLET PO SCH (09:00)
[2021-04-10] MEDS ORDERED: MELOXICAM 7.5 MG TABLET PO SCH (09:00)
[2021-04-10] MEDS ORDERED: [UNRECOGNIZED DRUG - OTHER] PO SCH (09:00)
[2021-04-10] MEDS ORDERED: OMEGA-3 FATTY ACIDS/FISH OIL 1,000 MG CAPSULE. PO SCH (09:00)
[2021-04-10] MEDS ORDERED: LOSARTAN 50 MG TABLET. PO SCH (09:00)
[2021-04-10] MEDS ORDERED: CELECOXIB 100 MG CAPSULE PO SCH (09:00)
[2021-04-10] MEDS ORDERED: NON FORMULARY ITEM (Prednisone 1 TAB) PO SCH ×2 (09:00)
== END 2021-04-10 10:10 | disposition left against medical advice (07) ==
LOC: ER 11:55 → INTOOBSV 15:09 → 1 SOUTH 15:09
PROVIDERS: ADMIT Internal Medicine; ATTEND Internal Medicine
DX: J18.9 Pneumonia, unspecified organism (principal); M25.512 Pain in left shoulder; R07.89 Other chest pain; I25.10 Atherosclerotic heart disease of native coronary artery without angina pectoris; E78.5 Hyperlipidemia, unspecified; E78.00 Pure hypercholesterolemia, unspecified; I11.0 Hypertensive heart disease with heart failure; I50.9 Heart failure, unspecified; J44.0 Chronic obstructive pulmonary disease with (acute) lower respiratory infection; I49.3 Ventricular premature depolarization; I25.2 Old myocardial infarction; F17.210 Nicotine dependence, cigarettes, uncomplicated; Z95.1 Presence of aortocoronary bypass graft; Z79.82 Long term (current) use of aspirin; Z86.73 Personal history of transient ischemic attack (TIA), and cerebral infarction without residual deficits; Z87.11 Personal history of peptic ulcer disease; Z95.5 Presence of coronary angioplasty implant and graft; Z96.643 Presence of artificial hip joint, bilateral; Z90.49 Acquired absence of other specified parts of digestive tract; Z79.899 Other long term (current) drug therapy; Z98.890 Other specified postprocedural states
CPT/HCPCS: 36415; 71045; 80048; 80053; 80061; 81001; 83735; 83880; 84484; 85025; 85379; 85610; 85730; 93005; 94640; 96365; 96366; 96368; 96375; 99285; G0378; J0456; J0696; J2270; J7050; G0379

== ENCOUNTER 2021-05-07 13:11 | Emergency (ER) | payer OTHER ==
[~2021-05-07] VITALS: Ht 170.2 cm; Wt 75.0 kg
[2021-05-07] MEDS ORDERED: IV NORMAL SALINE 1,000ML 1,000 ML IV ONE (15:00)
--- NOTE | 2021-05-07 15:04 | PHYS DOC ---
Past History Past Medical History: CVA, High Cholesterol, Hypertension, MS, Other (CANDI DENNY APRN) Past Surgical History: Angioplasty, Other Additional Past Surgical Histo: HIP SX, LEG SX (CANDI DENNY APRN) Smoking: Cigarettes, Greater than 1 pack/day Alcohol Use: None Drug Use: None (CANDI DENNY APRN) General Adult EDM: Chief Complaint: DEHYDRATION HPI: HPI: Patient is a 71-year-old male who presents with cough, shortness of breath, weakness. Patient states symptoms started this morning. Patient states "I was laying in bed when I started having chest pain that went into my left arm". Denies recent illness or exposure. Denies fever. Denies nausea/vomiting/diarrhea. Patient has history of CVA, hypertension, hyperlipidemia. (CANDI DENNY APRN) Review of Systems: Review of Systems: Constitutional: Denies fever or chills Eyes: Denies change in visual acuity HENT: Denies nasal congestion or sore throat Respiratory: Reports cough and shortness of breath Cardiovascular: Reports chest pain GI: Denies abdominal pain, nausea, vomiting, bloody stools or diarrhea : Denies dysuria Musculoskeletal: Denies back pain or joint pain Integument: Denies rash Neurologic: Denies headache, focal weakness or sensory changes Endocrine: Denies polyuria or polydipsia Lymphatic: Denies swollen glands Psychiatric: Denies depression or anxiety (CANDI DENNY APRN) Allergies: Allergies: Allergies Coded Allergies Type Severity Reaction Last Updated Verified No Known Drug Allergies 04/14/14 No (CANDI DENNY APRN) Physical Exam: PE: Constitutional: Well developed, well nourished, no acute distress, non-toxic appearance. [] HENT: Normocephalic, atraumatic, bilateral external ears normal, oropharynx moist, no oral exudates, nose normal. [] Eyes: PERRLA, EOMI, conjunctiva normal, no discharge. [] Neck: Normal range of motion, no tenderness, supple, no stridor. [] Cardiovascular:Heart rate regular rhythm, no murmur [] Lungs & Thorax: Bilateral breath sounds clear to auscultation [] Abdomen: Bowel sounds normal, soft, no tenderness, no masses, no pulsatile masses. [] Skin: Warm, dry, no erythema, no rash. [] Back: No tenderness, no CVA tenderness. [] Extremities: No tenderness, no cyanosis, no clubbing, ROM intact, no edema. [] Neurologic: Alert and oriented X 3, normal motor function, normal sensory function, no focal deficits noted. [] Psychologic: Affect normal, judgement normal, mood normal. [] (CANDI DENNY APRN) Current Patient Data: Vital Signs: Vital Signs Date Time Temp Pulse Resp B/P (MAP) Pulse Ox O2 Delivery O2 Flow Rate FiO2 05/07/21 14:51 74 15 113/74 (87) 96 Room Air 05/07/21 14:29 97.8 (CANDI DENNY APRN) EKG: EKG: Sinus rhythm. Heart rate 59 bpm [] (CANDI DENNY APRN) Radiology/Procedures: Radiology/Procedures: []R CHEST 1V History: Reason: sob / Spl. Instructions: / History: Comparison: April 09, 2021 Findings: Increased ill-defined opacities bilaterally most prominent within the right mid and bibasilar lateral lower lungs. No pleural effusion. No pneumothorax. Normal heart size. Impression: 1. Increased ill-defined opacities bilaterally, may represent edema or infection including viral pneumonia. Given persistence of opacities, CT can further evaluate if indicated. Electronically signed by: Franklin Reina DO (05/07/2021 4:46 PM) [facility] (CANDI DENNY APRN) Heart Score: C/O Chest Pain: Yes HEART Score for Chest Pain: HEART Score for Chest Pain Response (Comments) Value History Slighlty/Non-Suspicious 0 ECG Normal 0 Age > 65 2 Risk Factors >3 Risk Factors or Hx CAD 2 Troponin < Normal Limit 0 Total 4 Risk Factors: Risk Factors: DM, Current or recent (<one month) smoker, HTN, HLP, family history of CAD, obesity. Risk Scores: Score 0 - 3: 2.5% MACE over next 6 weeks - Discharge Home Score 4 - 6: 20.3% MACE over next 6 weeks - Admit for Clinical Observation Score 7 - 10: 72.7% MACE over next 6 weeks - Early Invasive Strategies (CANDI DENNY APRN) Course & Med Decision Making: Course & Med Decision Making Pertinent Labs and Imaging studies reviewed. (See chart for details) [] 71-year-old male presents with cough, shortness of breath, weakness, chest pain since noon today. Patient denies recent illness or exposure. Patient states he was lying in bed when chest pain started. Pain radiated into his left arm. Reports symptoms started about noon today. All labs unremarkable. Troponin is negative. Chest x-ray showed opacities bilaterally, may represent edema or infection including viral pneumonia. Patient started on cefdinir and Zithromax to treat viral pneumonia. Discussed results with patient. I also consulted regarding admission. After reviewing the case, agrees that patient can be discharged to home and follow-up with PCP. Patient most likely has pleuritic chest pain from cough. Discussed with patient that it is important that he self quarantine's until results are returned. Based on symptoms and chest x-ray patient most likely also has Covid. Instructed patient to take ibuprofen and Tylenol at home for discomfort. Return to emergency room with worsening symptoms. Patient is hemodynamically stable upon discharge. Agrees with discharge plan. (CANDI DENNY APRN) Course & Med Decision Making Do not see or evaluate patient. Agree with ELL TEACHER's work-up and disposition per note (HINA TAM MD) Dragon Disclaimer: Dragon Disclaimer: This electronic medical record was generated, in whole or in part, using a voice recognition dictation system. (CANDI DENNY APRN) Departure Departure: Impression: Primary Impression: Pneumonia Qualified Codes: J18.9 - Pneumonia, unspecified organism Additional Impressions: Person under investigation for COVID-19 Chest pain, pleuritic Disposition: HOME / SELF CARE / HOMELESS Condition: IMPROVED Referrals: KAY ZAMORA (PCP) Patient Instructions: Chest Wall Pain, [id number], Pneumonia, Adult, [id number] Additional Instructions: You are seen in the emergency room for pleuritic chest pain. Chest x-ray showed no pneumonia. I sent a prescription to the pharmacy for antibiotic. EMERGENCY DEPARTMENT GENERAL DISCHARGE INSTRUCTIONS Thank you for coming to [facility] (ED) today and trusting us with you care. We trust that you had a positivie experience in our Emergency Department. If you wish to speak to the department management, you may call the director at [phone]. YOUR FOLLOW UP INSTRUCTIONS ARE FOLLOWS: 1. Do you have a private Doctor? If you do not have a private doctor, please ask for a resource list of physicians or clinics that may be able to assist you with follow up care. 2. The Emergency Physician has interpreted your x-rays. The X-Ray specialist w ill also review them. If there is a change in the findings, you will be notified in 48 hours when at all possible. 3. A lab test or culture has been done, your results will be reviewed and you will be notified if you need a change in treatment. ADDITIONAL INSTRUCTIONS AND INFORMATION: 1. Your care today has been supervised by a physician who is specially trained in emergency care. Many problems require more than one evaluation for a complete diagnosis and treatment. We recommend that you schedule your follow up appointment as recommended to ensure complete treatment of you illness or injury. If you are unable to obtain follow up care and continue to have a problem, or if your condition worsens, we recommend that you return to the ED. 2. We are not able to safely determine your condition over the phone nor are we able to give sound medical advice over the phone. For these safety reasons, if you call for medical advice we will ask you to come to the ED for further evaluation. 3. If you have any questions regarding these discharge instructions please call the ED at [phone]. SAFETY INFORMATION: In the interest of safety, wellness, and injury prevention; we encourage you to wear your sealbelt, if you smoke; quite smoking, and we encourage family to use a protective helmet for bicycling and other sporting events that present an increased risk for head injury. IF YOUR SYMPTOMS WORSEN OR NEW SYMPTOMS DEVELOP, OR YOU HAVE CONCERNS ABOUT YOUR CONDITION; OR IF YOUR CONDITION WORSENS WHILE YOU ARE WAITING FOR YOUR FOLLOW UP APPOINTMENT; EITHER CONTACT YOUR PRIMARY CARE DOCTOR, THE PHYSICIAN WHOSE NAME AND NUMBER YOU WERE GIVEN, OR RETURN TO THE ED IMMEDIATELY. You have been tested for or diagnosed with COVID-19. It is an infection caused by a new type of coronavirus. COVID-19 will cause cold-like or mild flu symptoms in most. It can cause more severe symptoms like problems breathing in some. There is no treatment for COVID-19. The body will clear the infection over time. Self-care will help to ease discomfort. Steps to Take: Self-Care Rest as needed. Healthy habits may help you feel better. Steps include: Choose healthy foods including fruits and vegetables. Drink water throughout the day. Get plenty of sleep each night. If you smoke, try to quit. It may ease breathing. Avoid alcohol. Keep Others Healthy The virus can spread to others. Droplets are released every time you sneeze or cough. The droplets can get into the mouth, nose, or eyes of people near you and lead to infection. To lower the chances of spreading COVID-19 to others: Stay at home until your doctor has said it is safe to leave. If you tested positive this will mean staying isolated until both of the following are true: At least 7 days have passed since the start of illness. You are free of fever for at least 72 hours without the use of medicine. During this time: - Avoid public areas, events, or transportation. Do not return to work or school until your doctor has said it is safe to do so. - Call ahead if you need to go to a medical center. Let them know you may have COVID-19. It will help them guide you where to go. They may also ask you to wear a facemask when you come to the office. - If you call for emergency medical services, let them know you may have COVID- 19. While at home: - Try to avoid close contact with others. Stay about 6 feet away. - If possible, spend most of your time in a separate room from others. - Use a face mask if you will be in close contact with others such as sharing a room or vehicle. - Have someone wipe down common surfaces in the home. Use household hydro sprayer operator every day on areas like doorknobs, counters, or sinks. - Cough or sneeze into a tissue. Throw the tissue away right after use. If a tissue is not available, cough or sneeze into your elbow. - Wash your hands often. Wash them after sneezing or coughing. Use soap and water and wash for at least 20 seconds. Alcohol based hand mercury cell cleaner can be used if soap and water is not available. - Do not prepare food for others. Avoid sharing personal items like forks, spoons, or toothbrushes. - Avoid close contact with pets while you are sick. There is no evidence of the virus passing to pets. This is a safety step until more is known about this virus. Isolation can be frustrating. Social interaction can help. Keep in touch with friends and family through phone and tech options. You can still interact with others in your home, just keep a safe distance of about 6 feet. Follow-up: Your doctors office will check in with you to see if there are any changes in your health. You may be asked to keep track of symptoms to share with them. They will also l et you know when you are clear to be in public again. Problems to Look Out For: Contact your doctor if your recovery is not going as you expect. Get emergency care if you have problems such as: - Trouble breathing - Nonstop chest pain or pressure - Changes in awareness, confusion, or problems waking - Lips or face have bluish color - Worsening of symptoms If you think you have an emergency, call for emergency medical services right away. As taken from [facility] Scripts Levofloxacin (LEVOFLOXACIN) 750 Mg Tablet 750 MG PO DAILY for pneumonia for 7 Days, #7 TAB Prov: CANDI DENNY APRN 05/07/21 CANDI DENNY APRN May 07, 2021 15:04 HINA TAM MD May 08, 2021 01:13
[2021-05-07 15:47] LABS: BASO # 0.1 x10^3/uL (0.0-0.2); BASO % 1 % (0-3); EOS # 0.2 x10^3/uL (0.0-0.7); EOS % 4 % (0-3); HEMOGLOBIN 14.7 g/dL (13.0-17.5); LYMPH # 2.9 x10^3/uL (1.0-4.8); LYMPH % 49 % (24-48); MEAN CORPUSCULAR HEMOGLOBIN 33 pg (25-35); MEAN CORPUSCULAR HGB CONC 35 g/dL (31-37); MEAN CORPUSCULAR VOLUME 94 fL (79-100); MONO # 0.6 x10^3/uL (0.0-1.1); MONO % 11 % (0-9); NEUT % 35 % (31-73); PLATELET COUNT 266 x10^3/uL (140-400); RED BLOOD COUNT 4.46 x10^6/uL (4.30-5.70); RED CELL DISTRIBUTION WIDTH 13.1 % (11.5-14.5); WHITE BLOOD COUNT 5.8 x10^3/uL (4.0-11.0)
[2021-05-07 16:02] LABS: CALCIUM 8.3 mg/dL (8.5-10.1); CREATININE 0.9 mg/dL (0.7-1.3); GFR 83.4; POTASSIUM 4.1 mmol/L (3.5-5.1)
[2021-05-07 16:14] LABS: ALBUMIN 3.8 g/dL (3.4-5.0); ALBUMIN/GLOBULIN RATIO 1.3 (1.0-1.7); MAGNESIUM 2.3 mg/dL (1.8-2.4); TOTAL BILIRUBIN 0.5 mg/dL (0.2-1.0); TOTAL PROTEIN 6.7 g/dL (6.4-8.2)
--- NOTE | 2021-05-07 16:48 | RAD ---
XR CHEST 1V History: Reason: sob / Spl. Instructions: / History: Comparison: April 09, 2021 Findings: Increased ill-defined opacities bilaterally most prominent within the right mid and bibasilar lateral lower lungs. No pleural effusion. No pneumothorax. Normal heart size. Impression: 1. Increased ill-defined opacities bilaterally, may represent edema or infection including viral pne umonia. Given persistence of opacities, CT can further evaluate if indicated. Electronically signed by: Franklin Reina DO (05/07/2021 4:46 PM) [facility]
--- NOTE | 2021-05-07 17:07 | EKG ---
[address] [address] Test Date: 2021-05-07 Test Time: 15:55:10 Pat Name: ZAIDA CARRERO Department: Room: Gender: M Director Funds Development: [id number] : 1950 Requested By: CANDI DENNY Order Number: [id number] Reading MD: Measurements Intervals [place] Rate: 59 P: 44 ID: [id number] QRS: 15 QRSD: 104 T: 31 QT: 458 QTc: 458 Interpretive Statements SINUS RHYTHM INCOMPLETE RIGHT BUNDLE BRANCH BLOCK OTHERWISE NORMAL ECG RI6.02 No previous ECG available for comparison
[2021-05-07 17:27] LABS: BACTERIA,URINE 0 /HPF (0-FEW); BILIRUBIN,URINE NEG (NEG); CLARITY,URINE CLEAR; COLOR,URINE YELLOW; GLUCOSE,URINE NEG (NEG); NITRITE,URINE NEG (NEG); RBC,URINE 0 /HPF (0-2); UROBILINOGEN,URINE 0.2 mg/dL (0.2 mg/dL); WBC,URINE 0 /HPF (0-4)
[2021-05-07 17:43] VITALS: BP 121/73
[2021-05-07] MEDS ORDERED: LEVO750T5 PO (18:16)
== END 2021-05-07 19:39 | disposition home or self-care (01) ==
LOC: ER 13:11
DX: J18.9 Pneumonia, unspecified organism (principal); R07.81 Pleurodynia; Z20.822 Contact with and (suspected) exposure to COVID-19; E78.00 Pure hypercholesterolemia, unspecified; I10 Essential (primary) hypertension; I25.2 Old myocardial infarction; Z98.61 Coronary angioplasty status; F17.210 Nicotine dependence, cigarettes, uncomplicated; Z86.73 Personal history of transient ischemic attack (TIA), and cerebral infarction without residual deficits
CPT/HCPCS: 36415; 71045; 80053; 81001; 83735; 83880; 84484; 85025; 93005; 96360; 99285; C9803; J7030; U0003

== ENCOUNTER 2021-07-02 16:38 | Emergency (ER) | payer OTHER ==
[~2021-07-02] VITALS: Ht 165.1 cm; Wt 73.0 kg
[~2021-07-02 16:38] MED LIST changes: +LEVO750T5 PO; +NITR0.4T24 SL
--- NOTE | 2021-07-02 16:57 | PHYS DOC ---
Past History Past Medical History: CVA, High Cholesterol, Hypertension, CO, Other (CLAUDIA AYERS APRN) Past Surgical History: Angioplasty, Other Additional Past Surgical Histo: HIP SX, LEG SX (CLAUDIA AYERS APRN) Smoking: Cigarettes, Greater than 1 pack/day Alcohol Use: None Drug Use: None (CLAUDIA AYERS APRN) General Adult EDM: Chief Complaint: CHEST PAIN HPI: HPI: Patient is a 8-year-old male who presents to the ER for chest pain that radiates to his left arm and to his back that started 2 hours ago. Patient describes the pain as a tingling sensation. It is reproducible and worse with movement. He rates it 8 out of 10. He took 2, 81 mg aspirins prior to arrival. Along with the chest pain, he is experiencing shortness of breath. Patient denies any nausea, vomiting, fevers, cough. He has a history of CO, CVA, hypertension, COPD and states that he has been taking his medications as directed. EMS reports that patient lives in a house with no air conditioning and he was sweating profusely when they arrived. (CLAUDIA AYERS APRN) Review of Systems: Review of Systems: 14 body systems of the review of systems have been reviewed. See HPI for pertinent positive and negative responses, otherwise all other systems are negative, nonpertinent or noncontributory (CLAUDIA AYERS APRN) Allergies: Allergies: Allergies Coded Allergies Type Severity Reaction Last Updated Verified No Known Drug Allergies 04/14/14 No (CLAUDIA AYERS APRN) Physical Exam: PE: Constitutional: Well developed, well nourished, no acute distress, non-toxic appearance. [] HENT: Normocephalic, atraumatic, bilateral external ears normal, oropharynx moist, no oral exudates, nose normal. [] Eyes: PERRL, EOMI, conjunctiva normal, no discharge. [] Neck: Normal range of motion, no stridor Cardiovascular:Heart rate regular rhythm, no murmur, chest pain reproducible [] Lungs & Thorax: Bilateral breath sounds clear to auscultation [] Abdomen: Bowel sounds normal, soft, no tenderness, no masses, no pulsatile masses. [] Skin: Warm, dry, no erythema, no rash. [] Back: Normal range of motion Extremities: No tenderness, no cyanosis, no clubbing, ROM intact, no edema. [] Neurologic: Alert and oriented X 3, normal motor function, normal sensory function, no focal deficits noted. [] Psychologic: Affect normal, judgement normal, mood normal. [] (CLAUDIA AYERS APRN) Current Patient Data: Labs: Laboratory Tests Test 07/02/21 17:17 White Blood Count 8.0 x10^3/uL Red Blood Count 4.36 x10^6/uL Hemoglobin 14.5 g/dL Hematocrit 41.3 % Mean Corpuscular Volume 95 fL Mean Corpuscular Hemoglobin 33 pg Mean Corpuscular Hemoglobin Concent 35 g/dL Red Cell Distribution Width 13.4 % Platelet Count 333 x10^3/uL Neutrophils (%) (Auto) 43 % Lymphocytes (%) (Auto) 42 % Monocytes (%) (Auto) 11 % Eosinophils (%) (Auto) 3 % Basophils (%) (Auto) 1 % Neutrophils # (Auto) 3.5 x10^3uL Lymphocytes # (Auto) 3.4 x10^3/uL Monocytes # (Auto) 0.9 x10^3/uL Eosinophils # (Auto) 0.2 x10^3/uL Basophils # (Auto) 0.1 x10^3/uL Sodium Level 140 mmol/L Potassium Level 3.6 mmol/L Chloride Level 105 mmol/L Carbon Dioxide Level 24 mmol/L Anion Gap 11 Blood Urea Nitrogen 8 mg/dL Creatinine 0.9 mg/dL Estimated GFR (Cockcroft-Gault) 83.4 BUN/Creatinine Ratio 9 Glucose Level 118 mg/dL Calcium Level 8.0 mg/dL Total Bilirubin 0.2 mg/dL Aspartate Amino Transf (AST/SGOT) Pending Alanine Aminotransferase (ALT/SGPT) 34 U/L Alkaline Phosphatase 113 U/L Troponin I Quantitative < 0.017 ng/mL Total Protein 6.9 g/dL Albumin 3.2 g/dL Albumin/Globulin Ratio 0.9 Current Medications Medications (Trade) Dose Ordered Sig/Manuelito Route PRN Reason Start Time Stop Time Status Last Admin Dose Admin Aspirin (Aspirin Chewable) 162 mg 1X ONCE PO 07/02/21 17:00 07/02/21 17:15 DC 07/02/21 17:13 Nitroglycerin (Nitrostat) 0.4 mg PRN Q5MIN PRN SL CHEST PAIN 07/02/21 17:00 07/02/21 17:22 Sodium Chloride 1,000 ml @ 1,000 mls/hr 1X ONCE IV 07/02/21 17:00 07/02/21 17:59 DC 07/02/21 17:00 (CLAUDIA AYERS APRN) EKG: EKG: EKG performed by ER staff at 1715 shows sinus rhythm, no STEMI read by Dr. Branch at 1720 [] (CLAUDIA AYERS APRN) Radiology/Procedures: Radiology/Procedures: []PROCEDURE: PORTABLE CHEST 1V EXAMINATION: Chest radiograph. VIEWS: Single view COMPARISON: 06/05/2021 INDICATION:71 years, Male, chest pain. FINDINGS: Normal cardiomediastinal silhouette. Diffuse bilateral coarse reticulations, essentially unchanged since prior exam. No pleural effusion or pneumothorax. No acute osseous process. IMPRESSION: Unchanged diffuse bilateral coarse reticulations, likely related to chronic interstitial lung disease. No acute cardiopulmonary process. Electronically signed by: Lillian Cuevas MD (07/02/2021 5:27 PM) [facility] DICTATED AND SIGNED BY: LILLIAN CUEVAS MD DATE: 07/02/211725 CC: ERASTO BRANCH DO; KAY ZAMORA; CLAUDIA AYERS APRN ~MTH0 0 (CLAUDIA AYERS APRN) Heart Score: C/O Chest Pain: Yes HEART Score for Chest Pain: HEART Score for Chest Pain Response (Comments) Value History Slighlty/Non-Suspicious 0 ECG Nonspecific Repolarizatio (siinus rhythm incomplete r bbb) 1 Age > 65 2 Risk Factors >3 Risk Factors or Hx CAD (mi, htn, smoker) 2 Troponin < Normal Limit 0 Total 5 Risk Factors: Risk Factors: DM, Current or recent (<one month) smoker, HTN, HLP, family history of CAD, obesity. Risk Scores: Score 0 - 3: 2.5% MACE over next 6 weeks - Discharge Home Score 4 - 6: 20.3% MACE over next 6 weeks - Admit for Clinical Observation Score 7 - 10: 72.7% MACE over next 6 weeks - Early Invasive Strategies (CLAUDIA AYERS APRN) Course & Med Decision Making: Course & Med Decision Making Pertinent Labs and Imaging studies reviewed. (See chart for details) [] Patient is a 8-year-old male who presents to the ER for left-sided chest pain that radiates to his left arm into his back. He has a history of CO, CVA, hypertension. Work-up in the ER consisted of blood work, EKG, chest x-ray. Treated with 162 mg of chewable aspirin as he took 162MG prior to [facility]. He was also treated with a liter of normal saline and nitroglycerin. Chest x-ray unremarkable. Patient CBC is unremarkable he had a negative troponin. Patient's heart score is 4. I spoke to patient he states that he is still having pain despite being treated with nitroglycerin tablets. Fentanyl will be ordered for patient. I discussed patient's case with Dr. Mason who agreed to admit the patient under his services for chest pain rule out. I discussed patient's findings with him and his care plan and he is agreeable to admission. Care transferred at this time, bridge orders placed 1825. (CLAUDIA AYERS APRN) Dragon Disclaimer: Dragon Disclaimer: This electronic medical record was generated, in whole or in part, using a voice recognition dictation system. (CLAUDIA AYERS APRN) Departure Departure: Impression: Primary Impression: Chest pain Qualified Codes: R07.9 - Chest pain, unspecified Disposition: ADMITTED INPATIENT Admitting Physician: Danilo Vann (CLAUDIA AYERS APRN) Condition: STABLE Referrals: KAY ZAMORA (PCP) Attending Signature Attending Signature I have participated in the care of this patient and I have reviewed and agree with all pertinent clinical information above including history, exam, and recommendations. (NELSON TYSON MD) CLAUDIA AYERS APRN Jul 02, 2021 16:57 NELSON TYSON MD Jul 04, 2021 00:26
[2021-07-02] MEDS ORDERED: IV NORMAL SALINE 1,000ML 1,000 ML IV ONE (17:00)
[2021-07-02] MEDS ORDERED: ASPIRIN CHEWABLE 81 MG TABLET. PO ONE (17:00)
[2021-07-02] MEDS ORDERED: NITROGLYCERIN SUBLINGUAL 0.4 MG BOTTLE OF 25. SL PRN (17:00)
--- NOTE | 2021-07-02 17:30 | RAD ---
EXAMINATION: Chest radiograph. VIEWS: Single view COMPARISON: 06/05/2021 INDICATION:71 years, Male, chest pain. FINDINGS: Normal cardiomediastinal silhouette. Diffuse bilateral coarse reticulations, essentially unchanged si nce prior exam. No pleural effusion or pneumothorax. No acute osseous process. IMPRESSION: Unchanged diffuse bilateral coarse reticulations, likely related to chronic interstitial lung disease . No acute cardiopulmonary process. Electronically signed by: Maria Del Carmen Cuevas MD (07/02/2021 5:27 PM) [facility]
--- NOTE | 2021-07-02 17:50 | EKG ---
[address] [address] Test Date: 2021-07-02 Test Time: 17:15:22 Pat Name: ZAIDA CARRERO Department: Room: Gender: M Histology Specialist: LARRY : 1950 Requested By: CLAUDIA AYERS Order Number: [id number] Reading MD: Measurements Intervals [place] Rate: 81 P: 50 AK: 178 QRS: 18 QRSD: 94 T: 43 QT: 392 QTc: 456 Interpretive Statements SINUS RHYTHM INCOMPLETE RIGHT BUNDLE BRANCH BLOCK OTHERWISE NORMAL ECG RI6.02 No previous ECG available for comparison
[2021-07-02 18:01] LABS: BASO # 0.1 x10^3/uL (0.0-0.2); BASO % 1 % (0-3); EOS # 0.2 x10^3/uL (0.0-0.7); EOS % 3 % (0-3); HEMATOCRIT 41.3 % (39.0-53.0); HEMOGLOBIN 14.5 g/dL (13.0-17.5); LYMPH # 3.4 x10^3/uL (1.0-4.8); LYMPH % 42 % (24-48); MEAN CORPUSCULAR HEMOGLOBIN 33 pg (25-35); MEAN CORPUSCULAR HGB CONC 35 g/dL (31-37); MEAN CORPUSCULAR VOLUME 95 fL (79-100); MONO # 0.9 x10^3/uL (0.0-1.1); MONO % 11 % (0-9); NEUT # 3.5 x10^3uL (1.8-7.7); NEUT % 43 % (31-73); PLATELET COUNT 333 x10^3/uL (140-400); RED BLOOD COUNT 4.36 x10^6/uL (4.30-5.70); RED CELL DISTRIBUTION WIDTH 13.4 % (11.5-14.5)
[2021-07-02 18:12] LABS: CREATININE 0.9 mg/dL (0.7-1.3); GFR 83.4; POTASSIUM 3.6 mmol/L (3.5-5.1)
[2021-07-02 18:15] LABS: ALBUMIN 3.2 g/dL (3.4-5.0); ALBUMIN/GLOBULIN RATIO 0.9 (1.0-1.7); TOTAL BILIRUBIN 0.2 mg/dL (0.2-1.0); TOTAL PROTEIN 6.9 g/dL (6.4-8.2)
[2021-07-03 04:45] VITALS: BP 144/92
[2021-07-03 08:06] LABS: BASO # 0.1 x10^3/uL (0.0-0.2); BASO % 1 % (0-3); EOS # 0.2 x10^3/uL (0.0-0.7); EOS % 3 % (0-3); HEMATOCRIT 43.8 % (39.0-53.0); HEMOGLOBIN 15.2 g/dL (13.0-17.5); LYMPH # 2.6 x10^3/uL (1.0-4.8); LYMPH % 36 % (24-48); MEAN CORPUSCULAR HEMOGLOBIN 33 pg (25-35); MEAN CORPUSCULAR HGB CONC 35 g/dL (31-37); MEAN CORPUSCULAR VOLUME 94 fL (79-100); MONO # 0.7 x10^3/uL (0.0-1.1); MONO % 10 % (0-9); NEUT # 3.5 x10^3uL (1.8-7.7); NEUT % 50 % (31-73); PLATELET COUNT 313 x10^3/uL (140-400); RED BLOOD COUNT 4.63 x10^6/uL (4.30-5.70); RED CELL DISTRIBUTION WIDTH 13.4 % (11.5-14.5); WHITE BLOOD COUNT 7.1 x10^3/uL (4.0-11.0)
[2021-07-03 08:29] LABS: ALBUMIN 3.3 g/dL (3.4-5.0); ALBUMIN/GLOBULIN RATIO 0.9 (1.0-1.7); CALCIUM 8.5 mg/dL (8.5-10.1); CREATININE 0.7 mg/dL (0.7-1.3); GFR 111.5; POTASSIUM 3.9 mmol/L (3.5-5.1); TOTAL BILIRUBIN 0.5 mg/dL (0.2-1.0); TOTAL PROTEIN 6.9 g/dL (6.4-8.2)
--- NOTE | 2021-07-03 11:43 | NUR ---
IP: Attempted to notify patient of negative COVID19 test result. Voicemail message to please return call at number provided.
--- NOTE | 2021-07-04 10:08 | NUR ---
IP: Attempted to notify patient of negative COVID19 test result. Voicemail message to please return call at number provided.
== END 2021-07-03 10:31 | disposition left against medical advice (07) ==
LOC: ER 16:38
DX: R07.89 Other chest pain (principal); R20.2 Paresthesia of skin; R06.02 Shortness of breath; E78.00 Pure hypercholesterolemia, unspecified; I10 Essential (primary) hypertension; I25.2 Old myocardial infarction; F17.210 Nicotine dependence, cigarettes, uncomplicated; Z20.822 Contact with and (suspected) exposure to COVID-19; Z86.73 Personal history of transient ischemic attack (TIA), and cerebral infarction without residual deficits
CPT/HCPCS: 36415; 71045; 80053; 84484; 85025; 87426; 93005; 96360; 96361; 99285; J7030; U0003

== ENCOUNTER 2021-10-01 01:21 | Emergency (ER) | payer OTHER ==
[~2021-10-01] VITALS: Ht 165.1 cm; Wt 87.4 kg
[2021-10-01] MEDS ORDERED: vitamin c gummies PO (01:54)
[2021-10-01] MEDS ORDERED: CARV6.25 PO (01:54)
[2021-10-01] MEDS ORDERED: FISH OIL 600 MG (01:54)
[2021-10-01] MEDS ORDERED: LOSA50TA86 PO (01:54)
[2021-10-01] MEDS ORDERED: DIPH25TA64 PO (01:54)
[2021-10-01] MEDS ORDERED: FURO-69 PO (01:54)
[2021-10-01] MEDS ORDERED: [UNRECOGNIZED DRUG - CODE] (01:54)
--- NOTE | 2021-10-01 02:09 | PHYS DOC ---
Past History Past Medical History: CHF, CVA, High Cholesterol, Hypertension, ID, Other Past Surgical History: No Surgical History Additional Past Surgical Histo: HIP SX, LEG SX Smoking: Cigarettes, Greater than 1 pack/day Alcohol Use: None Drug Use: None General Adult EDM: Chief Complaint: CONGESTION HPI: HPI: ". I am congested....but not right now.. I took a benadryl.. . My bones ache... My hemorrhoids are back... My hip hurts.... My leg bones hurt.... Sometimes it is hard to pee... I had a sore throat 3 days ago... Sometimes my blood pressure is high.... I feel bloated... Sometimes I get to coughing..... I get worried because my dad of a brain tumor and my mom of bone cancer.. " "I am nauseated...' Off and on.. " I am constipated.. It seems like all week " " I don't like the cold weather.. ".. " about 3 days ago I had congestion and sore throat.. but that gone now.... Because I took my Benadryl... I have some bad aches the other day when the weather changed... Patient is a 71 year old male who presents with above hx and multiple complaints. Asked patient to identify 1 problem of his multiple list, he said his main problem tonight was constipation. Patient normally follows with [facility]. Patient has not scheduled an appointment for some time. Patient has a history of hypertension, hyperlipidemia, myocardial infarct status post 6 stent deployment, history of dysphagia, CVA and TIAs, arthritis, and anxiety. Patient has had surgeries of cholecystectomy, left hip arthroplasty, right tib and fib fracture open reduction internal fixation. Patient does smoke between 1 to 2 packs of cigarettes a day. Does drink alcohol occasionally. Denies use recreational drugs. 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 Patient has not gotten Covid vaccination or flu vaccination or Pneumovax or zoster vaccinations. Pt. has not had a stool for past week. Except for a few "small hard marbles".. Pt has not had any vomiting. Patient states he has been eating normally. No history of specific ill contacts. No history of bad food intake. No one is sick in his home. Review of Systems: Review of Systems: Constitutional: Denies fever or chills Eyes: Denies change in visual acuity HENT: Complains of nasal congestion Respiratory: Denies cough or shortness of breath Cardiovascular: Denies chest pain or edema GI: Complains of of abdomen distention and constipation. : Denies dysuria . Complains of sometimes difficulty in starting his urine. Musculoskeletal: Complains of chronic multiple joint, back pain Integument: Denies rash Neurologic: Denies headache, focal weakness or sensory changes Endocrine: Denies polyuria or polydipsia Lymphatic: Denies swollen glands Psychiatric: Does report anxiety about his health. Family History: Family History: He had 4 sisters and 5 brothers. His oldest brother has diabetes. His father of brain cancer age 62. Mother of bone cancer age 75 Current Medications: Current Meds: See nursing for home meds Allergies: Allergies: Allergies Coded Allergies Type Severity Reaction Last Updated Verified No Known Drug Allergies 10/01/21 No Physical Exam: PE: Constitutional: Well developed, well nourished, no acute distress, non-toxic appearance. [] HENT: Normocephalic, atraumatic, bilateral external ears normal, oropharynx moist, no oral exudates, nose normal. [] Eyes: PERRLA, EOMI, conjunctiva normal, no discharge. [] Neck: Normal range of motion, no tenderness, supple, no stridor. [] Cardiovascular:Heart rate regular rhythm, no murmur, PMI to the left Lungs & Thorax: Bilateral breath sounds clear to auscultation [] Abdomen: Bowel sounds normal, soft, no tenderness, no masses, no pulsatile masses. Abdomen is tympanic, mild distention, patient had one small hemorrhoid. Rectal exam did have hard stool in the rectal vault but did not appear to be an impaction. No gross blood. Does have old surgery scars on his abdomen Skin: Warm, dry, no erythema, no rash. [] Back: No tenderness, no CVA tenderness. [] Extremities: No tenderness, no cyanosis, no clubbing, ROM intact, no edema. [Does have left hip surgery scar. Does have right lower leg surgery scar. Neurologic: Alert and oriented X 3, normal motor function, normal sensory function, no focal deficits noted. [] Psychologic: Affect anxious, judgement normal, mood normal. [] Current Patient Data: Vital Signs: Vital Signs Date Time Temp Pulse Resp B/P (MAP) Pulse Ox O2 Delivery O2 Flow Rate FiO2 10/01/21 01:30 97.7 89 20 138/92 (107) 97 Room Air EKG: EKG: Pt declined[] Radiology/Procedures: Radiology/Procedures: Pt. declined[] Heart Score: C/O Chest Pain: N/A Risk Factors: Risk Factors: DM, Current or recent (<one month) smoker, HTN, HLP, family history of CAD, obesity. Risk Scores: Score 0 - 3: 2.5% MACE over next 6 weeks - Discharge Home Score 4 - 6: 20.3% MACE over next 6 weeks - Admit for Clinical Observation Score 7 - 10: 72.7% MACE over next 6 weeks - Early Invasive Strategies Course & Med Decision Making: Course & Med Decision Making Pertinent Labs and Imaging studies reviewed. (See chart for details) Pt. under went rectal exam. Did have some hard stool in the rectal vault. But no obvious impaction. Did place a Dulcolax and 1 glycerin suppository. Patient giving a bottle of mag citrate to drink when he gets home. Patient to expect some cramping and passage of stool. Must have re exam if no improvement. Follow-up primary care. Return if any concerns. Patient take his meds as directed. Impression: 1. Multiple anxiety concerns about his health 2. Complains of constipation(-was given as his major concern tonight) [] Dragon Disclaimer: Dragon Disclaimer: This electronic medical record was generated, in whole or in part, using a voice recognition dictation system. Departure Departure: Referrals: KAY ZAMORA (PCP) Robert Disclaimer This chart was dictated in whole or in part using Voice Recognition software in a busy, high-work load, and often noisy Emergency Department environment. It may contain unintended and wholly unrecognized errors or omissions. Dragon Disclaimer This chart was dictated in whole or in part using Voice Recognition software in a busy, high-work load, and often noisy Emergency Department environment. It may contain unintended and wholly unrecognized errors or omissions. NELSON TYSON MD Oct 01, 2021 02:09
[2021-10-01 02:31] LABS: BARBITURATES NEG (NEG); BENZODIAZEPINES NEG (NEG); BILIRUBIN,URINE NEG (NEG); CANNABINOIDS NEG (NEG); CLARITY,URINE CLEAR; COCAINE NEG (NEG); COLOR,URINE YELLOW; GLUCOSE,URINE NEG (NEG); METHADONE NEG (NEG); NITRITE,URINE NEG (NEG); OPIATES NEG (NEG); PHENCYCLIDINE NEG (NEG); UROBILINOGEN,URINE 0.2 mg/dL (0.2 mg/dL)
[2021-10-01 02:32] LABS: BACTERIA,URINE 0 /HPF (0-FEW); RBC,URINE 0 /HPF (0-2); SQUAMOUS EPITHELIAL CELL,UR OCC /LPF; WBC,URINE RARE /HPF (0-4)
[2021-10-01 02:33] LABS: AMPHETAMINE/METHAMPHETAMINE NEG (NEG)
[2021-10-01] MEDS ORDERED: BISACODYL 10 MG SUPP.RECT ONE (02:57)
[2021-10-01] MEDS ORDERED: GLYCERIN ADULT 1 SUPP.RECT. ONE (02:57)
[2021-10-01 03:15] VITALS: BP 128/88
[2021-10-01] MEDS ORDERED: GLYCERIN ADULT 1 SUPP.RECT. PR ONE (03:15)
[2021-10-01] MEDS ORDERED: MAGNESIUM CITRATE 296 ML SOLUTION. PO ONE (03:15)
[2021-10-01] MEDS ORDERED: BISACODYL 10 MG SUPP.RECT PR ONE (03:15)
[2021-10-10] MEDS ORDERED: CLOP75TA57 PO (11:31)
[2021-10-10] MEDS ORDERED: DIPH25TA64 PO (11:31)
[2021-10-10] MEDS ORDERED: PANT40TA3 PO (11:31)
[2021-10-10] MEDS ORDERED: FERR325T14 PO (11:31)
== END 2021-10-01 03:35 | disposition home or self-care (01) ==
LOC: ER 01:21
DX: K59.00 Constipation, unspecified (principal); F41.9 Anxiety disorder, unspecified; K64.9 Unspecified hemorrhoids; R09.81 Nasal congestion; I11.0 Hypertensive heart disease with heart failure; I50.9 Heart failure, unspecified; E78.00 Pure hypercholesterolemia, unspecified; I25.2 Old myocardial infarction; F17.210 Nicotine dependence, cigarettes, uncomplicated; Z86.73 Personal history of transient ischemic attack (TIA), and cerebral infarction without residual deficits
CPT/HCPCS: 36415; 80307; 81001; 99284

== ENCOUNTER 2021-10-07 01:59 | Observation (INO) | payer OTHER ==
[~2021-10-07] VITALS: Ht 165.1 cm; Wt 85.8 kg
[~2021-10-07 01:59] MED LIST changes: +CARV6.25 PO; +DIPH25TA64 PO; +FISH OIL 600 MG; +FURO-69 PO; +LOSA50TA86 PO; +[UNRECOGNIZED DRUG - CODE]; +vitamin c gummies PO
--- NOTE | 2021-10-07 02:45 | PHYS DOC ---
Past History Past Medical History: CHF, CVA, High Cholesterol, Hypertension, ID, Other Past Surgical History: Other Additional Past Surgical Histo: hip and leg fx repair; 6 stents in coronary arteries Smoking: Cigarettes, Greater than 1 pack/day Alcohol Use: None Drug Use: None General Adult EDM: Chief Complaint: RECTAL BLEED HPI: HPI: 71-year-old male presents with rectal bleeding. He states that it is bright red with his stool. It is painful. He has a history about 10 years ago of hemorrhoids. He had some kind of surgical procedure at that time. He denies shortness of breath, dizziness. He has no other specific complaints. Review of Systems: Review of Systems: Constitutional: Denies fever or chills Eyes: Denies change in visual acuity HENT: Denies nasal congestion or sore throat Respiratory: Denies cough or shortness of breath Cardiovascular: Denies chest pain or edema GI: Blood in stool. Denies abdominal pain, nausea, vomiting, or diarrhea : Denies dysuria Musculoskeletal: Denies back pain or joint pain Integument: Denies rash Neurologic: Denies headache, focal weakness or sensory changes Endocrine: Denies polyuria or polydipsia Lymphatic: Denies swollen glands Psychiatric: Denies depression or anxiety Allergies: Allergies: Allergies Coded Allergies Type Severity Reaction Last Updated Verified No Known Drug Allergies 10/01/21 No Physical Exam: PE: Constitutional: Well developed, well nourished, no acute distress, non-toxic appearance. [] HENT: Normocephalic, atraumatic, bilateral external ears normal, oropharynx moist, no oral exudates, nose normal. [] Eyes: PERRLA, EOMI, conjunctiva normal, no discharge. [] Neck: Normal range of motion, no tenderness, supple, no stridor. [] Cardiovascular: Heart rate regular rhythm, no murmur [] Lungs & Thorax: Bilateral breath sounds clear to auscultation [] Abdomen: Bowel sounds normal, soft, no tenderness, no masses, no pulsatile masses. [] Skin: Warm, dry, no erythema, no rash. [] Back: No tenderness, no CVA tenderness. [] Extremities: No tenderness, no cyanosis, no clubbing, ROM intact, no edema. [] Neurologic: Alert and oriented X 3, normal motor function, normal sensory funct ion, no focal deficits noted. [] Psychologic: Affect normal, judgement normal, mood normal. [] Current Patient Data: Vital Signs: Vital Signs Date Time Temp Pulse Resp B/P (MAP) Pulse Ox O2 Delivery O2 Flow Rate FiO2 10/07/21 02:02 98.1 80 18 128/88 (101) 98 EKG: EKG: [] Radiology/Procedures: Radiology/Procedures: [] Heart Score: C/O Chest Pain: N/A Risk Factors: Risk Factors: DM, Current or recent (<one month) smoker, HTN, HLP, family history of CAD, obesity. Risk Scores: Score 0 - 3: 2.5% MACE over next 6 weeks - Discharge Home Score 4 - 6: 20.3% MACE over next 6 weeks - Admit for Clinical Observation Score 7 - 10: 72.7% MACE over next 6 weeks - Early Invasive Strategies Course & Med Decision Making: Course & Med Decision Making Pertinent Labs and Imaging studies reviewed. (See chart for details) The patient's labs are unremarkable. His hemoglobin is normal. He has had a bloody stool in the emergency room. Patient rectal exam was positive for blood. I will admit him to the hospital for further evaluation. He may need to be transferred for GI bleed. I have given him 80 of Protonix IV. I spoke with Dr. Vann and he has accepted the patient for admission. [] Dragon Disclaimer: Robert Disclaimer: This electronic medical record was generated, in whole or in part, using a voice recognition dictation system. Departure Departure: Impression: Primary Impression: Rectal bleeding Disposition: ADMITTED INPATIENT Admitting Physician: Danilo Vann Condition: STABLE Referrals: KAY ZAMORA (PCP) ERASTO BRANCH DO Oct 07, 2021 02:45
[2021-10-07 02:52] LABS: BASO # 0.1 x10^3/uL (0.0-0.2); BASO % 1 % (0-3); EOS # 0.3 x10^3/uL (0.0-0.7); EOS % 3 % (0-3); HEMATOCRIT 39.7 % (39.0-53.0); HEMOGLOBIN 13.8 g/dL (13.0-17.5); LYMPH # 3.3 x10^3/uL (1.0-4.8); LYMPH % 35 % (24-48); MEAN CORPUSCULAR HEMOGLOBIN 33 pg (25-35); MEAN CORPUSCULAR HGB CONC 35 g/dL (31-37); MEAN CORPUSCULAR VOLUME 94 fL (79-100); MONO # 0.9 x10^3/uL (0.0-1.1); MONO % 10 % (0-9); NEUT # 4.9 x10^3uL (1.8-7.7); NEUT % 52 % (31-73); PLATELET COUNT 285 x10^3/uL (140-400); RED BLOOD COUNT 4.22 x10^6/uL (4.30-5.70); RED CELL DISTRIBUTION WIDTH 12.8 % (11.5-14.5); WHITE BLOOD COUNT 9.5 x10^3/uL (4.0-11.0)
[2021-10-07 02:56] LABS: CALCIUM 7.9 mg/dL (8.5-10.1); CREATININE 0.8 mg/dL (0.7-1.3); GFR 95.6
[2021-10-07 03:01] LABS: ALBUMIN 3.6 g/dL (3.4-5.0); ALBUMIN/GLOBULIN RATIO 1.2 (1.0-1.7); TOTAL BILIRUBIN 0.2 mg/dL (0.2-1.0); TOTAL PROTEIN 6.7 g/dL (6.4-8.2)
[2021-10-07] MEDS ORDERED: PANTOPRAZOLE IV 40 MG VIAL. IVP ONE ×2 (04:30→12:45)
[2021-10-07] MEDS ORDERED: ONDANSETRON PF 4 MG/2 ML VIAL. IVP PRN (05:45)
[2021-10-07] MEDS ORDERED: ACETAMINOPHEN 325 MG TABLET PO PRN (05:45)
[2021-10-07 09:33] VITALS: BP 109/75
[2021-10-07 11:00] VITALS: BP 110/70
[2021-10-07] MEDS: CARVEDILOL 6.25 MG TABLET PO SCH ×2 (12:24→17:02)
[2021-10-07] MEDS ORDERED: PANTOPRAZOLE IV 80 MG in IV NORMAL SALINE 100ML 100 ML IV ONE (12:30)
[2021-10-07] MEDS ORDERED: PANTOPRAZOLE IV 40 MG VIAL. IVP SCH (12:30)
[2021-10-07] MEDS: IV NORMAL SALINE 1,000ML 1,000 ML IV SCH (12:47)
[2021-10-07] MEDS: IPRATROPIUM/ALBUTEROL 20/100mcg/INH INHALER. INH SCH ×3 (13:00→21:00)
[2021-10-07 13:28] LABS: HEMATOCRIT 30.8 % (39.0-53.0); HEMOGLOBIN 10.7 g/dL (13.0-17.5)
[2021-10-07 15:00] VITALS: BP 108/67
[2021-10-07] MEDS ORDERED: IOHEXOL 300 MG/ML 75 ML VIAL. IV ONE (15:00)
--- NOTE | 2021-10-07 19:04 | HP ---
DATE OF SERVICE: 10/07/2021 ADMIT DATE: 10/07/2021 HISTORY OF PRESENT ILLNESS: A 71-year-old male came in through the Emergency Room, had been noting that he has been having problems with bright red rectal bleeding. He does have a history of hemorrhoids; however, the patient denied any chest pain, shortness of breath or dizziness, lightheadedness. The patient's vital signs are basically stable and apparently, the ER admitted him here to [facility] for further evaluation and possible transfer later on down to the [facility] or some other facility with a GI opportunity. PAST MEDICAL HISTORY: Includes difficult swallowing due to no teeth, neurological problems, history of stroke, heart attacks, angina and coronary stents x 6, respiratory disorder, COPD, cholecystectomy, gallstones, musculoskeletal disorder, left hip replacement, right knee surgery, tobacco abuse, and pneumococcal vaccination. FAMILY HISTORY: Positive for brain cancer, diabetes, bone cancer. ALLERGIES: None known. SOCIAL HISTORY: The patient has about a [id number]-year history of smoking, occasional hard liquor, but no hard drugs. REVIEW OF SYSTEMS: The patient denies any headaches, visual change, blurred vision, double vision. The patient does note that he has this problem with the bright red rectal bleeding, although it is not painful. He has no problems urinating and was noted no chest pain or shortness of breath. PHYSICAL EXAMINATION: GENERAL: This is a very pleasant gentleman. VITAL SIGNS: Blood pressure 148/70, respiratory rate 16, pulse 80, afebrile, 97% on room air. HEENT: The patient's head was atraumatic, normocephalic. Eyes: PERRLA without jaundice. The mouth and throat were normal. NECK: Supple without JVD, carotid bruits, or thyromegaly. LUNGS: Diminished throughout, but basically clear. CARDIOVASCULAR: Regular sinus rhythm. ABDOMEN: Soft; diffuse tenderness; fairly firm stool, definite Hemoccult positive. EXTREMITIES: No clubbing, cyanosis, edema. NEUROLOGIC: The patient is alert and oriented x 3. LABORATORY DATA: Hemoglobin came down from 13.8 down to 10.7 and the patient otherwise seems to be resting fairly comfortably. His electrolytes, BUN and creatinine were negative. PCR negative. PLAN: The patient will be admitted for further evaluation of GI bleed. Continue to monitor him and make further evaluation of possible transfer as soon as possible to a GI facility. DREAD/OSITO DR: Tiki TID: [id number]
[2021-10-07 19:41] VITALS: BP 91/57
[2021-10-07 23:39] VITALS: BP 95/61
[2021-10-08 05:03] VITALS: BP 95/60
[2021-10-08] MEDS: IV NORMAL SALINE 1,000ML 1,000 ML IV SCH ×3 (05:38→20:11)
[2021-10-08] MEDS ORDERED: ASPIRIN ENTERIC COATED 81 MG TABLET.DR. PO SCH (06:00)
[2021-10-08 06:38] LABS: BASO # 0.1 x10^3/uL (0.0-0.2); BASO % 1 % (0-3); EOS # 0.3 x10^3/uL (0.0-0.7); EOS % 4 % (0-3); HEMATOCRIT 26.6 % (39.0-53.0); HEMOGLOBIN 9.3 g/dL (13.0-17.5); LYMPH % 41 % (24-48); MEAN CORPUSCULAR HEMOGLOBIN 33 pg (25-35); MEAN CORPUSCULAR HGB CONC 35 g/dL (31-37); MEAN CORPUSCULAR VOLUME 93 fL (79-100); MONO # 0.6 x10^3/uL (0.0-1.1); MONO % 9 % (0-9); NEUT # 3.3 x10^3uL (1.8-7.7); NEUT % 45 % (31-73); PLATELET COUNT 214 x10^3/uL (140-400); RED BLOOD COUNT 2.86 x10^6/uL (4.30-5.70); RED CELL DISTRIBUTION WIDTH 12.8 % (11.5-14.5); WHITE BLOOD COUNT 7.4 x10^3/uL (4.0-11.0)
[2021-10-08] MEDS ORDERED: FUROSEMIDE 20 MG TABLET PO SCH (09:00)
[2021-10-08] MEDS ORDERED: LOSARTAN 50 MG TABLET. PO SCH (09:00)
[2021-10-08] MEDS: PANTOPRAZOLE IV 40 MG VIAL. IVP SCH (09:13)
[2021-10-08] MEDS: CARVEDILOL 6.25 MG TABLET PO SCH ×2 (09:14→16:39)
[2021-10-08] MEDS: IPRATROPIUM/ALBUTEROL 20/100mcg/INH INHALER. INH SCH ×4 (11:02→20:11)
[2021-10-08 11:07] VITALS: BP 112/73
--- NOTE | 2021-10-08 11:36 | RAD ---
EXAMINATION: CT abdomen and pelvis with IV contrast. INDICATION:71 years, Male, acute GI bleeding. TECHNIQUE: Axial CT images of the abdomen and pelvis were obtained. Coronal and sagittal reformatted performed. COMPARISON: None. Exposure: One or more of the following individualized dose reduction techniques were utilized for thi s examination: 1. Automated exposure control 2. Adjustment of the mA and/or kV according to patient size 3. Use of iterative reconstruction technique. FINDINGS: LOWER CHEST: Interlobular septal thickening in bibasilar lungs. Subsegmental atelectasis in bibasilar lungs. ABDOMEN/PELVIS: Normal size and morphology of the liver with homogeneous enhancement. No suspicious focal hepatic les ion. Calcified granulomas in the liver and spleen. No splenomegaly. Pancreas and adrenal glands are u nremarkable. Gallbladder and biliary ducts are unremarkable. No hydronephrosis in either kidney. Punc romero (1mm) nonobstructing right nephrolithiasis. No bowel obstruction or wall thickening. Few colonic diverticulosis without acute diverticulitis. Nor mal appendix. Normal caliber abdominal aorta. Mesenteric arteries and portal veins are patent. No pne umoperitoneum or ascites. No lymphadenopathy in the abdomen or pelvis by size criteria. Unremarkable urinary bladder and prostate. MUSCULOSKELETAL STRUCTURES: Diffuse osteopenia. No acute osseous process. Multilevel degenerative changes in the spine. Small fat -containing umbilical hernia. IMPRESSION: 1. No acute intra-abdominal findings. 2. Few colonic diverticulosis without acute diverticulitis. 3. Punctate nonobstructing right nephrolithiasis. 4. Interlobular septal thickening in bibasilar lungs, suggesting of mild interstitial pulmonary oanh a. Electronically signed by: Maria Del Carmen Cuevas MD (10/08/2021 11:33 AM) RUFINO
[2021-10-08 14:14] LABS: HEMATOCRIT 26.6 % (39.0-53.0); HEMOGLOBIN 9.2 g/dL (13.0-17.5)
[2021-10-08 15:39] VITALS: BP 103/60
[2021-10-08 19:00] VITALS: BP_SYST 105; BP_SYST 133; BP_DIAS 66; BP_DIAS 68
[2021-10-08 23:00] VITALS: BP 121/72
[2021-10-09 05:00] VITALS: BP 109/64
--- NOTE | 2021-10-09 05:20 | PN ---
SUBJECTIVE: The patient has rectal bleeding. The patient has been accepted down at [facility], although apparently they are booked up. He is stable here. His hemoglobin has remained stable at 9.2 and 26. Otherwise, the patient is resting fairly comfortably, making fairly good progress overall. He will continue to be monitored carefully. OBJECTIVE: VITAL SIGNS: Blood pressure 103/60, respiration 18, pulse 79, afebrile. GENERAL: The patient is alert and oriented. LUNGS: Clear. CARDIOVASCULAR: Stable. ABDOMEN: Soft, diffuse tenderness in the left mid quadrant area, but no rebounding or guarding. CT scan showed a possibly interstitial pulmonary edema (NC), but no acute findings as far as any intraabdominal areas there. PLAN: The patient will continue on present drug regimen and make further evaluation for possible transfer as indicated. IMPRESSION: Acute gastrointestinal bleed. DREAD/KRISTAN/LUCA DR: Tiki TID: [id number]
[2021-10-09 06:35] LABS: HEMOGLOBIN 8.9 g/dL (13.0-17.5)
[2021-10-09] MEDS: CARVEDILOL 6.25 MG TABLET PO SCH ×2 (07:36→17:03)
[2021-10-09] MEDS: PANTOPRAZOLE IV 40 MG VIAL. IVP SCH (07:36)
[2021-10-09] MEDS: IPRATROPIUM/ALBUTEROL 20/100mcg/INH INHALER. INH SCH ×4 (07:38→20:30)
[2021-10-09 12:23] VITALS: BP 104/66
[2021-10-09 13:00] VITALS: BP 112/70
[2021-10-09 19:18] VITALS: BP 174/79
--- NOTE | 2021-10-10 01:35 | PN ---
DATE: 10/09/2021 SUBJECTIVE: The patient is a 71-year-old male in with an acute GI bleed. The patient is resting fairly comfortably, still having some red stools. We have tried to get him transferred, but unable to get due to backup and all the other hospitals on diversion. The patient's hemoglobin and hematocrit stable at 8.9 and 25. He is on clear liquids to help cut down abrasion to that lower GI area. OBJECTIVE: VITAL SIGNS: Blood pressure, however, is stable at 112/70, respiratory rate 20, pulse 80, afebrile, 95% on room air. LUNGS: Otherwise, the patient's lungs are diminished, but clear. CARDIOVASCULAR: Stable. ABDOMEN: Soft, diffuse tenderness. No rebounding or guarding. Positive bowel sounds. Stool Hemoccult positive. The patient continues to be monitored carefully, make further evaluation on him as indicated. IMPRESSION: Acute gastrointestinal bleed with anemia secondary to acute blood loss. DREAD/REHANA/BRET DR: Tiki TID: [id number]
[2021-10-10 06:02] VITALS: BP 120/76
[2021-10-10 06:57] LABS: BASO # 0.1 x10^3/uL (0.0-0.2); BASO % 1 % (0-3); EOS # 0.3 x10^3/uL (0.0-0.7); EOS % 4 % (0-3); HEMATOCRIT 25.8 % (39.0-53.0); HEMOGLOBIN 9.1 g/dL (13.0-17.5); LYMPH # 2.9 x10^3/uL (1.0-4.8); LYMPH % 39 % (24-48); MEAN CORPUSCULAR HEMOGLOBIN 33 pg (25-35); MEAN CORPUSCULAR HGB CONC 35 g/dL (31-37); MEAN CORPUSCULAR VOLUME 93 fL (79-100); MONO # 0.8 x10^3/uL (0.0-1.1); MONO % 11 % (0-9); NEUT # 3.3 x10^3uL (1.8-7.7); NEUT % 45 % (31-73); PLATELET COUNT 252 x10^3/uL (140-400); RED BLOOD COUNT 2.78 x10^6/uL (4.30-5.70); RED CELL DISTRIBUTION WIDTH 12.6 % (11.5-14.5); WHITE BLOOD COUNT 7.3 x10^3/uL (4.0-11.0)
[2021-10-10] MEDS: CARVEDILOL 6.25 MG TABLET PO SCH (08:11)
[2021-10-10] MEDS: PANTOPRAZOLE IV 40 MG VIAL. IVP SCH (08:12)
[2021-10-10] MEDS: IPRATROPIUM/ALBUTEROL 20/100mcg/INH INHALER. INH SCH (08:12)
[2021-10-10 11:29] VITALS: BP 133/84
[2021-10-10] MEDS ORDERED: FERR325T14 PO (11:31)
[2021-10-10] MEDS ORDERED: PANT40TA3 PO (11:31)
[2021-10-10] MEDS ORDERED: DIPH25TA64 PO (11:31)
[2021-10-10] MEDS ORDERED: CLOP75TA57 PO (11:31)
--- NOTE | 2021-10-10 15:17 | DS ---
DATE OF DISCHARGE: 10/10/2021 HOSPITAL COURSE: A 71-year-old gentleman came in with a GI bleed. The patient noted bright red rectal bleeding. The patient had a scan of the abdomen and pelvis did not show any acute findings, did show some diverticulosis and some nephrolithiasis and interlobular septal thickening in the bibasilar lungs, possibly mild pulmonary edema, but his lungs did sound perfectly clear. The patient's hemoglobin dropped down from 10.7, down to 8.9, bounced up a little bit to 9.1 and 25. Restarted on iron, taken off aspirin and Plavix. We will restart him on Plavix just every other day, not the aspirin. Otherwise, the patient's SARS was negative. The patient made good progress. Sodium and potassium 144 and and BUN and creatinine of 12 and 0.8. He continues to make good progress overall. We will continue to monitor him accordingly on that as an outpatient. He has been made appointment with Dr. Carnes and then as soon as possible, staying on a soft diet. Additional iron supplementation. See MRAD. IMPRESSION: Acute gastrointestinal bleed and anemia secondary to acute gastrointestinal bleed. DREAD/ARIANA/LISSA DR: DREAD/inocencio TID: [id number]
== END 2021-10-10 13:04 | disposition home or self-care (01) ==
LOC: ER 01:59 → INTOOBSV 05:40 → ER HOLD 05:40 → 1 SOUTH 06:51
PROVIDERS: ADMIT Family Medicine; ATTEND Family Medicine
DX: K92.2 Gastrointestinal hemorrhage, unspecified (principal); Z20.822 Contact with and (suspected) exposure to COVID-19; I11.0 Hypertensive heart disease with heart failure; I50.9 Heart failure, unspecified; E78.00 Pure hypercholesterolemia, unspecified; F17.210 Nicotine dependence, cigarettes, uncomplicated; D62 Acute posthemorrhagic anemia; Z86.73 Personal history of transient ischemic attack (TIA), and cerebral infarction without residual deficits; Z79.899 Other long term (current) drug therapy; Z98.890 Other specified postprocedural states
CPT/HCPCS: 36415; 74177; 80053; 85014; 85018; 85025; 87426; 96361; 96374; 96376; 99285; C9113; G0378; J7030; Q9967; U0003; G0379

== ENCOUNTER 2021-10-29 17:37 | Emergency (ER) | payer OTHER ==
[~2021-10-29] VITALS: Ht 165.1 cm; Wt 85.8 kg
[~2021-10-29 17:37] MED LIST changes: +FERR325T14 PO
[2021-10-29 17:44] VITALS: BP 137/77
--- NOTE | 2021-10-29 18:15 | PHYS DOC ---
Past History Past Medical History: CHF, CVA, High Cholesterol, Hypertension, [place], Other Past Surgical History: Other Additional Past Surgical Histo: hip and leg fx repair; 6 stents in coronary arteries Smoking: Cigarettes, Greater than 1 pack/day Alcohol Use: None Drug Use: None General Adult EDM: Chief Complaint: SHORTNESS OF BREATH HPI: HPI: Patient is a 71-year-old male that presents today via [facility] for shortness of breath when he lays down and a rash in his groin area. When talking with the patient patient has a really rough cough, he states has been going on for the last couple of days and he feels like he has something in his throat he has a lot of phlegm and is having trouble bringing it up. Patient does smoke on a daily basis per his report. Patient has not had any Covid vaccines or influenza vaccines. Patient does deny chest pain, shortness of air, or nausea and vomiting. Patient also states that he has a rash in his groin area he is unable to tell me how long that has been going on but it is really bothering him. Review of Systems: Review of Systems: Constitutional: Denies fever or chills Eyes: Denies change in visual acuity HENT: Denies nasal congestion or sore throat Respiratory: Cough and shortness of breath when lying flat Cardiovascular: Denies chest pain or edema GI: Denies abdominal pain, nausea, vomiting, bloody stools or diarrhea : Denies dysuria Musculoskeletal: Denies back pain or joint pain Integument: Denies rash Neurologic: Denies headache, focal weakness or sensory changes Endocrine: Denies polyuria or polydipsia Lymphatic: Denies swollen glands Psychiatric: Denies depression or anxiety Allergies: Allergies: Allergies Coded Allergies Type Severity Reaction Last Updated Verified No Known Drug Allergies 10/01/21 No Physical Exam: PE: Constitutional: Well developed, well nourished, unkept in no acute distress nontoxic appearing [] HENT: Normocephalic, atraumatic, bilateral external ears normal, oropharynx moist, no oral exudates, nose normal. [] Eyes: PERRLA, EOMI, conjunctiva normal, no discharge. [] Neck: Normal range of motion, no tenderness, supple, no stridor. [] Cardiovascular:Heart rate regular rhythm, no murmur [] Lungs & Thorax: Bilateral breath sounds rhonchi and wheezes, cough noted Abdomen: Bowel sounds normal, soft, no tenderness, no masses, no pulsatile masses. [] Skin: Warm, dry, no erythema, no rash. [] Back: No tenderness, no CVA tenderness. [] Extremities: No tenderness, no cyanosis, no clubbing, ROM intact, no edema. [] Neurologic: Alert and oriented X 3, normal motor function, normal sensory function, no focal deficits noted. [] Psychologic: Affect normal, judgement normal, mood normal. [] Current Patient Data: Labs: Laboratory Tests Test 10/29/21 18:30 White Blood Count 7.7 x10^3/uL Red Blood Count 3.17 x10^6/uL Hemoglobin 9.3 g/dL Hematocrit 28.1 % Mean Corpuscular Volume 89 fL Mean Corpuscular Hemoglobin 29 pg Mean Corpuscular Hemoglobin Concent 33 g/dL Red Cell Distribution Width 15.8 % Platelet Count 392 x10^3/uL Neutrophils (%) (Auto) 53 % Lymphocytes (%) (Auto) 32 % Monocytes (%) (Auto) 11 % Eosinophils (%) (Auto) 3 % Basophils (%) (Auto) 1 % Neutrophils # (Auto) 4.1 x10^3uL Lymphocytes # (Auto) 2.5 x10^3/uL Monocytes # (Auto) 0.8 x10^3/uL Eosinophils # (Auto) 0.2 x10^3/uL Basophils # (Auto) 0.0 x10^3/uL D-Dimer (Pilar) 0.72 mg/L Sodium Level 140 mmol/L Potassium Level 3.6 mmol/L Chloride Level 106 mmol/L Carbon Dioxide Level 24 mmol/L Anion Gap 10 Blood Urea Nitrogen 8 mg/dL Creatinine 0.9 mg/dL Estimated GFR (Cockcroft-Gault) 83.4 BUN/Creatinine Ratio 9 Glucose Level 86 mg/dL Calcium Level 8.3 mg/dL Total Bilirubin 0.5 mg/dL Aspartate Amino Transf (AST/SGOT) 24 U/L Alanine Aminotransferase (ALT/SGPT) 43 U/L Alkaline Phosphatase 138 U/L Total Protein 7.3 g/dL Albumin 3.4 g/dL Albumin/Globulin Ratio 0.9 Influenza Type A (Rapid) Negative Influenza Type B (Rapid) Negative SARS-CoV-2 Antigen (Rapid) Negative Vital Signs: Vital Signs Date Time Temp Pulse Resp B/P (MAP) Pulse Ox O2 Delivery O2 Flow Rate FiO2 10/29/21 17:44 98.5 77 18 137/77 (97) 95 Vital Signs Date Time Temp Pulse Resp B/P (MAP) Pulse Ox O2 Delivery O2 Flow Rate FiO2 10/29/21 17:44 98.5 77 18 137/77 (97) 95 EKG: EKG: [] Radiology/Procedures: Radiology/Procedures: REASON: cough PROCEDURE: CHEST AP ONLY Study: XR CHEST 1V Indication: Cough. Comparison: 07/02/2021 Findings: Redemonstrated generalized interstitial prominence. No newly seen confluent airspace opacity. No layering effusion or pneumothorax. Unchanged cardiomediastinal silhouette and emily. Coronary artery stenting. Impression: Similar aeration pattern of the lungs again with findings suggestive of chronic interstitial lung disease. No lobar consolidation to indicate an organizing pneumonia. A superimposed atypical infectious process is not able to be excluded. Electronically signed by: ADOLFO ISLAS MD (10/29/2021 6:44 PM) [facility] REASON: Chest pain, cough, elevated DDimer Omni 350 100cc PROCEDURE: CT ANGIOGRAPHY CHEST Exam: CT of chest with contrast INDICATION: Chest pain, cough, elevated d-dimer TECHNIQUE: Sequential axial images through the chest obtained following the administration of 99 mL of Isovue-370 IV contrast. Sagittal and coronal reformatted images were reconstructed from the axial data and reviewed. 3-D reformatted images were reconstructed from the axial data and reviewed. Exposure: One or more of the following in the visualized dose reduction technSpotFodo ues were utilized for this examination: 1. Automated exposure control 2. Adjustment of the MA and/or KV according to patient size 3. Use of iterative of reconstructive technique Comparisons: Chest x-ray same day FINDINGS: Visualized portions of the thyroid are unremarkable. Numerous prominent mildly enlarged mediastinal lymph nodes are identified. Heart size is normal. No pericardial effusion. Mild coronary artery calcification. Thoracic aorta has normal course and caliber. Pulmonary artery is not enlarged. No pulmonary embolus identified within the main, lobar or segmental pulmonary arteries. Airways are patent. No consolidation or pneumothorax. There is strandy peripheral airspace disease at the lungs bilaterally may relate to atelectasis. Mild intralobular septal thickening noted greatest at the lung bases. No pleural effusion or thickening. Diffuse hepatic steatosis. No suspicious osseous lesions or acute fractures. IMPRESSION: 1. No pulmonary embolus identified within the main, lobar or segmental pulmonary arteries. 2. Subtle peripheral groundglass airspace disease may be infectious or inflammatory in etiology. 3. Mild intralobular septal thickening noted lung bases, this may relate to a component of mild edema. 4. Extensive mediastinal lymphadenopathy which is nonspecific and could be reactive. 5. Diffuse hepatic steatosis. Electronically signed by: Damien Elam MD (10/29/2021 8:25 PM) [facility] [] Heart Score: C/O Chest Pain: N/A Risk Factors: Risk Factors: DM, Current or recent (<one month) smoker, HTN, HLP, family history of CAD, obesity. Risk Scores: Score 0 - 3: 2.5% MACE over next 6 weeks - Discharge Home Score 4 - 6: 20.3% MACE over next 6 weeks - Admit for Clinical Observation Score 7 - 10: 72.7% MACE over next 6 weeks - Early Invasive Strategies Course & Med Decision Making: Course & Med Decision Making Pertinent Labs and Imaging studies reviewed. (See chart for details) 2042 did review radiological and laboratory results with patient informed him that he has some atypical pneumonia in his lungs we will treat him with Augmentin twice daily for 10 full days. Patient is to follow-up with his primary care physician Dr. Lacy for which she has an appointment on the . Patient is to return for any increased shortness of air, fever, inability to keep by mouth fluids down or any blowing of his lips or face. Stop smoking Dragon Disclaimer: Robert Disclaimer: This electronic medical record was generated, in whole or in part, using a voice recognition dictation system. Departure Departure: Impression: Primary Impression: Pneumonia Qualified Codes: J18.9 - Pneumonia, unspecified organism Additional Impression: Suspected 2019 novel coronavirus infection Disposition: HOME / SELF CARE / HOMELESS Condition: STABLE Referrals: KAY ZAMORA (PCP) ROSA CARRION MD Patient Instructions: Pneumonia, Adult, Smoking Cessation Additional Instructions: Augmentin take 1 tablet twice daily for 10 days Tylenol and/or ibuprofen as needed for fever and pain Increase by mouth fluid Follow-up with Dr. Lacy or your primary care physician on the as previously mentioned Return to the emergency department for increased shortness of air, development of a fever while on antibiotics, inability to keep by mouth fluids down or bluing of your lips or face. Scripts Amoxicillin/Potassium Clav (AUGMENTIN 875-125 TABLET) 1 Each Tablet 1 TAB PO BID for pneumonia for 10 Days, #20 TAB 0 Refills Prov: CHARLEEN SCHWAB APRN 10/29/21 CHARLEEN SCHWAB APRN Oct 29, 2021 18:15
--- NOTE | 2021-10-29 18:47 | RAD ---
Study: XR CHEST 1V Indication: Cough. Comparison: 07/02/2021 Findings: Redemonstrated generalized interstitial prominence. No newly seen confluent airspace opacity. No laye ring effusion or pneumothorax. Unchanged cardiomediastinal silhouette and emily. Coronary artery stent ing. Impression: Similar aeration pattern of the lungs again with findings suggestive of chronic interstitial lung dis ease. No lobar consolidation to indicate an organizing pneumonia. A superimposed atypical infectious process is not able to be excluded. Electronically signed by: ADOLFO ISLAS MD (10/29/2021 6:44 PM) [facility]
[2021-10-29 19:08] LABS: BASO % 1 % (0-3); EOS # 0.2 x10^3/uL (0.0-0.7); EOS % 3 % (0-3); HEMATOCRIT 28.1 % (39.0-53.0); HEMOGLOBIN 9.3 g/dL (13.0-17.5); LYMPH # 2.5 x10^3/uL (1.0-4.8); LYMPH % 32 % (24-48); MEAN CORPUSCULAR HEMOGLOBIN 29 pg (25-35); MEAN CORPUSCULAR HGB CONC 33 g/dL (31-37); MEAN CORPUSCULAR VOLUME 89 fL (79-100); MONO # 0.8 x10^3/uL (0.0-1.1); MONO % 11 % (0-9); NEUT # 4.1 x10^3uL (1.8-7.7); NEUT % 53 % (31-73); PLATELET COUNT 392 x10^3/uL (140-400); RED BLOOD COUNT 3.17 x10^6/uL (4.30-5.70); RED CELL DISTRIBUTION WIDTH 15.8 % (11.5-14.5); WHITE BLOOD COUNT 7.7 x10^3/uL (4.0-11.0)
[2021-10-29 19:11] LABS: INFLUENZA A PATIENT NEGATIVE (NEGATIVE); INFLUENZA B PATIENT NEGATIVE (NEGATIVE)
[2021-10-29 19:13] LABS: CALCIUM 8.3 mg/dL (8.5-10.1); CREATININE 0.9 mg/dL (0.7-1.3); GFR 83.4; POTASSIUM 3.6 mmol/L (3.5-5.1)
[2021-10-29 19:19] LABS: ALBUMIN 3.4 g/dL (3.4-5.0); ALBUMIN/GLOBULIN RATIO 0.9 (1.0-1.7); TOTAL BILIRUBIN 0.5 mg/dL (0.2-1.0); TOTAL PROTEIN 7.3 g/dL (6.4-8.2)
[2021-10-29] MEDS ORDERED: IOHEXOL 350 MG/ML 100 ML VIAL. IV ONE (19:45)
[2021-10-29] MEDS ORDERED: CONTRAST GIVEN. MC PRN (19:45)
--- NOTE | 2021-10-29 20:27 | RAD ---
Exam: CT of chest with contrast INDICATION: Chest pain, cough, elevated d-dimer TECHNIQUE: Sequential axial images through the chest obtained following the administration of 99 mL o f Isovue-370 IV contrast. Sagittal and coronal reformatted images were reconstructed from the axial d latesha and reviewed. 3-D reformatted images were reconstructed from the axial data and reviewed. Exposure: One or more of the following in the visualized dose reduction techniques were utilized for this examination: 1. Automated exposure control 2. Adjustment of the MA and/or KV according to patient size 3. Use of iterative of reconstructive technique Comparisons: Chest x-ray same day FINDINGS: Visualized portions of the thyroid are unremarkable. Numerous prominent mildly enlarged mediastinal l ymph nodes are identified. Heart size is normal. No pericardial effusion. Mild coronary artery calcification. Thoracic aorta has normal course and caliber. Pulmonary artery is not enlarged. No pulmonary embolus identified within the main, lobar or segmental pulmonary arteries. Airways are patent. No consolidation or pneumothorax. There is strandy peripheral airspace disease at the lungs bilaterally may relate to atelectasis. Mild intralobular septal thickening noted greatest at the lung bases. No pleural effusion or thickening. Diffuse hepatic steatosis. No suspicious osseous lesions or acute fractures. IMPRESSION: 1. No pulmonary embolus identified within the main, lobar or segmental pulmonary arteries. 2. Subtle peripheral groundglass airspace disease may be infectious or inflammatory in etiology. 3. Mild intralobular septal thickening noted lung bases, this may relate to a component of mild oanh a. 4. Extensive mediastinal lymphadenopathy which is nonspecific and could be reactive. 5. Diffuse hepatic steatosis. Electronically signed by: Damien Elam MD (10/29/2021 8:25 PM) [facility]
[2021-10-29] MEDS ORDERED: AMOXICILLIN/K CLAV 875/125MG TABLET. PO ONE (20:45)
[2021-10-29] MEDS ORDERED: AMOX1TAB61 PO (20:47)
== END 2021-10-29 21:00 | disposition home or self-care (01) ==
LOC: ER 17:37
DX: J18.9 Pneumonia, unspecified organism (principal); I11.0 Hypertensive heart disease with heart failure; I50.9 Heart failure, unspecified; I25.2 Old myocardial infarction; E78.00 Pure hypercholesterolemia, unspecified; F17.210 Nicotine dependence, cigarettes, uncomplicated; Z20.822 Contact with and (suspected) exposure to COVID-19; Z86.73 Personal history of transient ischemic attack (TIA), and cerebral infarction without residual deficits
CPT/HCPCS: 36415; 71045; 71275; 80053; 85025; 85379; 87428; 99285; Q9967

== ENCOUNTER 2021-11-18 18:59 | Emergency (ER) | payer OTHER ==
[~2021-11-18] VITALS: Ht 165.1 cm; Wt 86.7 kg
[~2021-11-18 18:59] MED LIST changes: +AMOX1TAB61 PO
[2021-11-18 19:23] VITALS: BP 118/62
--- NOTE | 2021-11-18 19:38 | PHYS DOC ---
Past History Past Medical History: CHF, CVA, High Cholesterol, Hypertension, [place], Other (CANDI DENNY APRN) Past Surgical History: Other Additional Past Surgical Histo: hip and leg fx repair; 6 stents in coronary arteries (CANDI DENNY APRN) Smoking: Cigarettes, Greater than 1 pack/day Alcohol Use: None Drug Use: None (CANDI DENNY APRN) General Adult EDM: Chief Complaint: BLOODY STOOL HPI: HPI: Patient is a 71-year-old male presents with blood in his stool. Patient states symptoms started 1 month ago. Patient reports he has been seen for this same complaint recently. Patient was post to have a colonoscopy but canceled. Patient reports he is also having chest pain and shortness of breath that started yesterday. Pain is worse with movement, and reproducible. Denies nausea/vomiting/diarrhea. Denies recent illness or cough. No fevers. Patient is currently on blood thinners. History of an AL, CVA, CHF, hypertension. (CANDI DENNY APRN) Review of Systems: Review of Systems: ROS At least 10 ROS systems have been reviewed and are negative except as documented in the HPI. General: Negative except as outlined in HPI above. Skin: Negative except as outlined in HPI above. HEENT: Negative except as outlined in HPI above. Neck: Negative except as outlined in HPI above. Respiratory: Negative except as outlined in HPI above.. Cardiovascular: Negative except as outlined in HPI above. Abdomen: Negative except as outlined in HPI above. : Negative except as outlined in HPI above. Back/MSK: Negative except as outlined in HPI above. Neuro: Negative except as outlined in HPI above. Psych: Negative except as outlined in HPI above. (CANDI DENNY APRN) Allergies: Allergies: Allergies Coded Allergies Type Severity Reaction Last Updated Verified No Known Drug Allergies 10/01/21 No (CANDI DENNY APRN) Physical Exam: PE: Constitutional: Well developed, well nourished, no acute distress, non-toxic appearance. HENT:bilateral external ears normal, oropharynx moist, no oral exudates, nose normal. Eyes: PERRLA, , conjunctiva normal, no discharge. Neck: Normal range of motion, no tenderness, supple, no stridor. Cardiovascular:Heart rate regular rhythm, no murmur Lungs & Thorax: Bilateral breath sounds clear to auscultation Abdomen: Bowel sounds normal, soft, no tenderness, no masses Skin: Warm, dry, no erythema, no rash. Back: No tenderness, no CVA tenderness. Extremities: No tenderness, no cyanosis, no clubbing, ROM intact, no edema. Neurologic: Alert and oriented X 3, normal motor function, normal sensory function, no focal deficits noted. Psychologic: Affect normal, judgement normal, mood normal. (CANDI DENNY APRN) EKG: EKG: Sinus rhythm. Heart rate [address] elevation or depression. Read by Dr. Tam. [] (CANDI DENNY APRN) Radiology/Procedures: Radiology/Procedures: []Exam: Chest one view INDICATION: Chest pain TECHNIQUE: Frontal view of the chest Comparisons: 10/29/2021 FINDINGS: The cardiomediastinal silhouette and pulmonary vessels are within normal limits. Peripheral interstitial opacities are again seen similar to prior study. No focal consolidative changes identified. No pleural effusion. IMPRESSION: No significant change compared to the prior study. Electronically signed by: Damien Elam MD (11/18/2021 8:21 PM) [facility] (CANDI DENNY APRN) Heart Score: C/O Chest Pain: Yes HEART Score for Chest Pain: HEART Score for Chest Pain Response (Comments) Value History Moderately Suspicious 1 ECG Normal 0 Age > 65 2 Risk Factors >3 Risk Factors or Hx CAD 2 Troponin < Normal Limit 0 Total 5 Risk Factors: Risk Factors: DM, Current or recent (<one month) smoker, HTN, HLP, family history of CAD, obesity. Risk Scores: Score 0 - 3: 2.5% MACE over next 6 weeks - Discharge Home Score 4 - 6: 20.3% MACE over next 6 weeks - Admit for Clinical Observation Score 7 - 10: 72.7% MACE over next 6 weeks - Early Invasive Strategies (CANDI DENNY APRN) Course & Med Decision Making: Course & Med Decision Making Pertinent Labs and Imaging studies reviewed. (See chart for details) [] 71-year-old male presents with blood in his stool for the last month. Patient was post have a colonoscopy recently but counseled. Patient also is reporting chest pain and shortness of breath that started yesterday. Patient has a history of AL and CVA. Work-up in ER consisted of labs, urinalysis, EKG, troponin, stool occult. Patient is hemodynamically stable. Troponin negative. Stool occult positive, no gross blood seen on the physical exam no abdominal pain. Patient has a history of hemorrhoids. Patient has a heart score of 5. EKG shows sinus rhythm. Heart rate [address] elevation or depression. No STEMI. H&H within normal range. Chest x-ray is unremarkable. Discussed all results with patient. Advised patient he needs to follow-up with his PCP and reschedule his colonoscopy. Daniel return precautions with patient in length. Patient verbalizes understanding of discharge instructions. Patient is hemodynamically stable upon disposition. (CANDI DENNY APRN) Course & Med Decision Making Did not see or evaluate patient. Did not discuss patient with CARGO AGENT. Agree with CARGO AGENT's work-up and disposition per note. (HINA TAM MD) Dragon Disclaimer: Dragon Disclaimer: This electronic medical record was generated, in whole or in part, using a voice recognition dictation system. (CANDI DENNY APRN) Departure Departure: Impression: Primary Impression: History of bloody stools Additional Impression: Hemorrhoids Qualified Codes: K64.9 - Unspecified hemorrhoids Disposition: HOME / SELF CARE / HOMELESS Condition: STABLE Referrals: KAY ZAMORA (PCP) Patient Instructions: Bloody Stools, [id number] Additional Instructions: You were seen in the emergency room for bloody stools. You need to call your PCP and make a follow-up appointment. You also need to follow back up with GI to reschedule your colonoscopy. You most likely have bleeding due to your internal hemorrhoids. Increase fiber intake and fluids. Return to emergency room if you have worsening symptoms or concerns such as chest pain, shortness of breath, abdominal pain. EMERGENCY DEPARTMENT GENERAL DISCHARGE INSTRUCTIONS Thank you for coming to [facility] (ED) today and trusting us with you care. We trust that you had a positivie experience in our Emergency Department. If you wish to speak to the department management, you may call the director at [phone]. YOUR FOLLOW UP INSTRUCTIONS ARE FOLLOWS: 1. Do you have a private Doctor? If you do not have a private doctor, please ask for a resource list of physicians or clinics that may be able to assist you with follow up care. 2. The Emergency Physician has interpreted your x-rays. The X-Ray specialist will also review them. If there is a change in the findings, you will be notified in 48 hours when at all possible. 3. A lab test or culture has been done, your results will be reviewed and you will be notified if you need a change in treatment. ADDITIONAL INSTRUCTIONS AND INFORMATION: 1. Your care today has been supervised by a physician who is specially trained in emergency care. Many problems require more than one evaluation for a complete diagnosis and treatment. We recommend that you schedule your follow up appointment as recommended to ensure complete treatment of you illness or injury. If you are unable to obtain follow up care and continue to have a problem, or if your condition worsens, we recommend that you return to the ED. 2. We are not able to safely determine your condition over the phone nor are we able to give sound medical advice over the phone. For these safety reasons, if you call for medical advice we will ask you to come to the ED for further evaluation. 3. If you have any questions regarding these discharge instructions please call the ED at [phone]. SAFETY INFORMATION: In the interest of safety, wellness, and injury prevention; we encourage you to wear your sealbelt, if you smoke; quite smoking, and we encourage family to use a protective helmet for bicycling and other sporting events that present an increased risk for head injury. IF YOUR SYMPTOMS WORSEN OR NEW SYMPTOMS DEVELOP, OR YOU HAVE CONCERNS ABOUT YOUR CONDITION; OR IF YOUR CONDITION WORSENS WHILE YOU ARE WAITING FOR YOUR FOLLOW UP APPOINTMENT; EITHER CONTACT YOUR PRIMARY CARE DOCTOR, THE PHYSICIAN WHOSE NAME AND NUMBER YOU WERE GIVEN, OR RETURN TO THE ED IMMEDIATELY. CANDI DENNY APRN Nov 18, 2021 19:38 HINA TAM MD Nov 18, 2021 23:31
[2021-11-18] MEDS ORDERED: IV NORMAL SALINE 1,000ML 1,000 ML IV SCH (19:45)
[2021-11-18 19:47] LABS: BASO # 0.1 x10^3/uL (0.0-0.2); BASO % 1 % (0-3); EOS # 0.3 x10^3/uL (0.0-0.7); EOS % 5 % (0-3); HEMATOCRIT 30.7 % (39.0-53.0); HEMOGLOBIN 10.2 g/dL (13.0-17.5); LYMPH # 2.6 x10^3/uL (1.0-4.8); LYMPH % 40 % (24-48); MEAN CORPUSCULAR HEMOGLOBIN 27 pg (25-35); MEAN CORPUSCULAR HGB CONC 33 g/dL (31-37); MEAN CORPUSCULAR VOLUME 81 fL (79-100); MONO # 0.7 x10^3/uL (0.0-1.1); MONO % 11 % (0-9); NEUT # 2.8 x10^3uL (1.8-7.7); NEUT % 43 % (31-73); PLATELET COUNT 388 x10^3/uL (140-400); RED BLOOD COUNT 3.79 x10^6/uL (4.30-5.70); RED CELL DISTRIBUTION WIDTH 19.5 % (11.5-14.5); WHITE BLOOD COUNT 6.5 x10^3/uL (4.0-11.0)
[2021-11-18 20:01] LABS: CALCIUM 8.3 mg/dL (8.5-10.1); CREATININE 0.9 mg/dL (0.7-1.3); GFR 83.4; POTASSIUM 4.3 mmol/L (3.5-5.1)
[2021-11-18 20:06] LABS: FECAL OB PT POSITIVE (NEG)
[2021-11-18 20:13] LABS: ALBUMIN 3.5 g/dL (3.4-5.0); MAGNESIUM 2.1 mg/dL (1.8-2.4); TOTAL BILIRUBIN 0.2 mg/dL (0.2-1.0)
--- NOTE | 2021-11-18 20:23 | RAD ---
Exam: Chest one view INDICATION: Chest pain TECHNIQUE: Frontal view of the chest Comparisons: 10/29/2021 FINDINGS: The cardiomediastinal silhouette and pulmonary vessels are within normal limits. Peripheral interstitial opacities are again seen similar to prior study. No focal consolidative quan es identified. No pleural effusion. IMPRESSION: No significant change compared to the prior study. Electronically signed by: Damien Elam MD (11/18/2021 8:21 PM) [facility]
[2021-11-18 20:47] LABS: BACTERIA,URINE 0 /HPF (0-FEW); BILIRUBIN,URINE NEG (NEG); CLARITY,URINE CLEAR; COLOR,URINE YELLOW; GLUCOSE,URINE NEG (NEG); NITRITE,URINE NEG (NEG); RBC,URINE OCC /HPF (0-2); UROBILINOGEN,URINE 0.2 mg/dL (0.2 mg/dL); WBC,URINE OCC /HPF (0-4)
[2021-11-18] MEDS ORDERED: CONTRAST GIVEN. MC PRN (21:00)
[2021-11-18] MEDS ORDERED: IOHEXOL 350 MG/ML 100 ML VIAL. IV ONE (21:30)
--- NOTE | 2021-11-19 01:43 | EKG ---
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
== END 2021-11-18 21:42 | disposition home or self-care (01) ==
LOC: ER 18:59
DX: K64.9 Unspecified hemorrhoids (principal); R07.89 Other chest pain; R06.02 Shortness of breath; I11.0 Hypertensive heart disease with heart failure; I50.9 Heart failure, unspecified; I25.2 Old myocardial infarction; E78.00 Pure hypercholesterolemia, unspecified; F17.210 Nicotine dependence, cigarettes, uncomplicated; Z86.73 Personal history of transient ischemic attack (TIA), and cerebral infarction without residual deficits
CPT/HCPCS: 36415; 71045; 80053; 81001; 82274; 83690; 83735; 83880; 84484; 85025; 85379; 85610; 85730; 93005; 96360; 99285; J7030

== ENCOUNTER 2021-12-12 18:01 | Emergency (ER) | payer OTHER ==
[~2021-12-12] VITALS: Ht 165.1 cm; Wt 86.7 kg
--- NOTE | 2021-12-12 18:38 | PHYS DOC ---
Past History Past Medical History: CHF, CVA, High Cholesterol, Hypertension, [place], Other Past Surgical History: Hip Replacement Additional Past Surgical Histo: Cardiac stent Smoking: Cigarettes, Greater than 1 pack/day Alcohol Use: None Drug Use: None Adult General Chief Complaint Chief Complaint: SHORTNESS OF BREATH HPI HPI Patient is a 71-year-old male with a past medical history of CAD, VT on Plavix, CHF and COPD who presents to the emergency department with a chief complaint of increased shortness of breath and cough over the last couple of days over his baseline. States he is at least a 14-hdzf-valb smoker and still smokes half a pack a day. States he is never had Covid. Denies having Covid vaccine. Denies any recent traumas, travels, illnesses, fevers, abdominal pain, nausea, vomiti ng, diarrhea. States when he coughs or takes deep breaths he has an irritating feeling in the left side of his chest. Review of Systems Review of Systems Review of systems otherwise unremarkable except noted in HPI Allergies Allergies Allergies Coded Allergies Type Severity Reaction Last Updated Verified No Known Drug Allergies 10/01/21 No Physical Exam Physical Exam Constitutional: Well developed, well nourished, no acute distress, non-toxic appearance. [] HENT: Normocephalic, atraumatic, bilateral external ears normal, oropharynx moist, no oral exudates, nose normal. [] Eyes: conjunctiva normal, no discharge. [] Neck: Normal range of motion, no tenderness, supple, no stridor. [] Cardiovascular:Heart rate regular rhythm, no murmur [] Lungs & Thorax: Mild bilateral upper respiratory congestion and scant rhonchi, tachypnea Abdomen: soft, no tenderness, no masses, no pulsatile masses. [] Skin: Warm, dry, no erythema, no rash. [] Extremities: No tenderness, no cyanosis, no clubbing, ROM intact, no edema. [] Neurologic: Alert and oriented X 3, normal motor function, normal sensory function, able to sit, stand and walk without issue, no focal deficits noted. [] Psychologic: Affect normal, judgement normal, mood normal. [] EKG EKG [] Radiology/Procedures Radiology/Procedures [] Heart Score C/O Chest Pain: No Risk Factors: Risk Factors: DM, Current or recent (<one month) smoker, HTN, HLP, family history of CAD, obesity. Risk Scores: Risk Factors: DM, Current or recent (<one month) smoker, HTN, HLP, family h istory of CAD, obesity. Course & Med Decision Making Course & Med Decision Making Patient is a 71-year-old male with multiple medical problems who presents with shortness of breath for 2 days over baseline Vital signs notable for tachypnea. Physical exam noted above. Patient placed on the monitor with IV access established. EKG with a rate of 80, QRS of 100, QTc 451, no STEMI. Elevated FL and PVCs. Troponin normal. D-dimer normal. Chest x-ray with findings of infection versus inflammation, but per radiology no different mild multifocal ill defined opacities similar compared to prior. Laboratory analysis notable for microcytic anemia which is approximately baseline for patient. Patient responded well to treatment. Vital signs with a heart rate of 82, 113/77, 99% on room air breathing 15 times a minute. Started on albuterol and antibiotics for COPD exacerbation. Offered admission to the hospital for continued management of the next couple of days and optimization. Patient states that he would just take his albuterol, antibiotics and follow-up with his doctor in the morning. Gave strict return precautions to the ED. Patient grateful, verbalized understanding and agreed with plan of discharge. Dragon Disclaimer Dragon Disclaimer This electronic medical record was generated, in whole or in part, using a voice recognition dictation system. Departure Departure: Impression: Primary Impression: COPD (chronic obstructive pulmonary disease) Disposition: HOME / SELF CARE / HOMELESS Condition: STABLE Referrals: KAY ZAMORA (PCP) Patient Instructions: Chronic Obstructive Pulmonary Disease, Chronic Obstructive Pulmonary Disease Exacerbation Additional Instructions: Thank you for coming into the emergency department tonight and allowing us to take care of you. Please read the attached information carefully go over the things we discussed. Please take your antibiotics as prescribed until gone. Please cease smoking cigarettes immediately as we discussed. You can use nicotine patches gum and mints. Please use your albuterol inhaler as prescribed and demonstrated. We offered you admission to the hospital for the next couple of days to manage her COPD exacerbation and optimize her medications but you stated you did not want to stay, and would follow-up with your doctor in the morning. Please follow-up first thing in the morning with your primary care physician update on your ED visit and set up an immediate follow-up. Please discussed with him COPD management and medications as well as interactions with your current medications. Please come back with new or concerning symptoms as discussed. Scripts Albuterol Sulfate (VENTOLIN HFA INHALER) 18 Gm Hfa.aer.ad 2 PUFF IH PRN Q4HRS PRN for SHORTNESS OF BREATH for 7 Days, #1 EACH 5 Refills Prov: HINA TAM MD 12/12/21 Doxycycline Hyclate (DOXYCYCLINE HYCLATE) 100 Mg Capsule 1 CAP PO BID for COPD, #13 CAP Prov: HINA TAM MD 12/12/21 HINA TAM MD Dec 12, 2021 18:38
[2021-12-12] MEDS ORDERED: DEXAMETHASONE 4 MG TABLET PO ONE (18:45)
[2021-12-12 19:16] LABS: BASO # 0.1 x10^3/uL (0.0-0.2); BASO % 1 % (0-3); EOS # 0.3 x10^3/uL (0.0-0.7); EOS % 5 % (0-3); HEMATOCRIT 31.5 % (39.0-53.0); HEMOGLOBIN 10.1 g/dL (13.0-17.5); LYMPH # 2.8 x10^3/uL (1.0-4.8); LYMPH % 39 % (24-48); MEAN CORPUSCULAR HEMOGLOBIN 24 pg (25-35); MEAN CORPUSCULAR HGB CONC 32 g/dL (31-37); MEAN CORPUSCULAR VOLUME 76 fL (79-100); MONO % 13 % (0-9); NEUT % 42 % (31-73); PLATELET COUNT 402 x10^3/uL (140-400); RED BLOOD COUNT 4.15 x10^6/uL (4.30-5.70); RED CELL DISTRIBUTION WIDTH 20.8 % (11.5-14.5); WHITE BLOOD COUNT 7.1 x10^3/uL (4.0-11.0)
--- NOTE | 2021-12-12 20:02 | RAD ---
XR CHEST 1V History: Reason: SOB / Spl. Instructions: / History: Comparison: November 18, 2021 Findings: Mild multifocal ill-defined opacities bilaterally. No pleural effusion. No pneumothorax. Unchanged he art size. Impression: 1. Mild multifocal ill-defined opacities, similar compared to prior. Electronically signed by: Franklin Reina DO (12/12/2021 8:00 PM) [facility] [place]
[2021-12-12] MEDS ORDERED: IPRATRPIUM/ALBUTEROL 0.5/2.5MG 3 ML NEBU. NEB ONE (20:15)
[2021-12-12 20:18] LABS: CALCIUM 8.5 mg/dL (8.5-10.1); CREATININE 0.9 mg/dL (0.7-1.3); GFR 83.4; POTASSIUM 3.9 mmol/L (3.5-5.1)
[2021-12-12 20:33] LABS: ALBUMIN 3.7 g/dL (3.4-5.0); MAGNESIUM 2.2 mg/dL (1.8-2.4); TOTAL BILIRUBIN 0.3 mg/dL (0.2-1.0); TOTAL PROTEIN 7.3 g/dL (6.4-8.2)
[2021-12-12 20:35] LABS: ANISOCYTOSIS PRESENT; HYPOCHROMIA MOD; PLATELET CLUMP PRESENT; PLT ESTIMATE ADEQUATE (ADEQUATE); TARGET CELLS OCC
[2021-12-12 20:36] LABS: MICROCYTOSIS SLIGHT; SCHISTOCYTES OCC; STOMATOCYTES FEW
[2021-12-12] MEDS ORDERED: ALBU2.5V8 IH (20:58)
[2021-12-12] MEDS ORDERED: DOXY100C3 PO (20:58)
[2021-12-12] MEDS ORDERED: DOXYCYCLINE HYCLATE 100 MG TABLET PO ONE (21:00)
[2021-12-12] MEDS ORDERED: ALBUTEROL SULFATE 8GM INHALER. INH ONE (21:00)
[2021-12-12 21:28] VITALS: BP 117/69
--- NOTE | 2021-12-14 00:31 | EKG ---
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
== END 2021-12-12 21:32 | disposition home or self-care (01) ==
LOC: ER 18:01
DX: J44.9 Chronic obstructive pulmonary disease, unspecified (principal); E78.00 Pure hypercholesterolemia, unspecified; I25.2 Old myocardial infarction; I11.0 Hypertensive heart disease with heart failure; I50.9 Heart failure, unspecified; F17.210 Nicotine dependence, cigarettes, uncomplicated; Z20.822 Contact with and (suspected) exposure to COVID-19; Z86.73 Personal history of transient ischemic attack (TIA), and cerebral infarction without residual deficits
CPT/HCPCS: 71045; 80053; 83735; 83880; 84484; 85025; 85379; 87426; 93005; 94640; 99285; C9803; J8540; U0003; 94664

== ENCOUNTER 2022-01-17 14:23 | Emergency (ER) | payer OTHER ==
[~2022-01-17] VITALS: Ht 165.1 cm; Wt 86.7 kg
[~2022-01-17 14:23] MED LIST changes: +ALBU2.5V8 IH; +DOXY100C3 PO
--- NOTE | 2022-01-17 14:44 | PHYS DOC ---
Past History Past Medical History: CHF, CVA, High Cholesterol, Hypertension, [place], Other Past Surgical History: Hip Replacement Additional Past Surgical Histo: Cardiac stent Smoking: Cigarettes, Greater than 1 pack/day Alcohol Use: None Drug Use: None General Adult EDM: Chief Complaint: HIP PAIN HPI: HPI: Patient is a 71 year old male who presents with multiple complaints. He reports that he has had left-sided lower chest pain for the past 3 to 4 days. The pain is sharp, constant, nonradiating. He denies any associated dyspnea or pleuritic pain. He denies dizziness or diaphoresis. He denies abdominal pain, nausea or vomiting. He does report having a chronic, dry cough, without acute changes. He denies hemoptysis. He denies fevers or chills. Denies any trauma or injury to this area. No rash. He denies back or flank pain. He also reports having bilateral hip pain. He has had previous surgeries on both hips, but he is unable to articulate any details about this. These reportedly occurred at [facility], quite some time ago. He denies any acute trauma or injury. He denies numbness or tingling or focal motor weakness. He denies urinary symptoms, bowel habit changes. He has not taken anything for the pain. He has experienced these exact same symptoms multiple times in the past. He contacted his primary care doctor's office and when he could not receive an appointment today, he was told to go to the ER. He has not procured a follow-up appointment as of yet. Review of Systems: Review of Systems: Constitutional: Denies fever or chills Eyes: Denies change in visual acuity HENT: Denies nasal congestion or sore throat Respiratory: Chronic cough, denies hemoptysis or acute sputum changes Cardiovascular: Left lower chest pain. Denies edema, palpitations or syncope. GI: Denies abdominal pain, nausea, vomiting, or diarrhea. : Denies urinary symptoms. Musculoskeletal: Denies back pain. Reports bilateral hip pain. Integument: Denies rash Neurologic: Denies headache, focal weakness or sensory changes Psychiatric: Denies depression or anxiety Allergies: Allergies: Allergies Coded Allergies Type Severity Reaction Last Updated Verified No Known Drug Allergies 10/01/21 No Physical Exam: PE: Constitutional: Well developed, well nourished, no acute distress, non-toxic appearance. [] HENT: Normocephalic, atraumatic, oropharynx is patent and clear. Mucous membranes moist Eyes: There are anicteric, conjunctive are normal. Neck: Normal range of motion, no tenderness, supple, no stridor. Midline tenderness or step-offs. Trachea is midline. Cardiovascular:Heart rate regular rhythm, 2 radial and +2 posterior tibial pulses bilaterally. Lungs & Thorax: Clear to auscultation bilaterally without rales, rhonchi or wheezes. Equal chest rise, no evidence of chest or thorax trauma. Palpation of the left lower chest and rib area reproduces his pain. No crepitus, subcutaneous emphysema. No rash. No evidence of trauma. Abdomen: Abdomen is soft, nondistended, nontender to palpation. No palpable masses organomegaly. No flank abdominal ecchymoses. No CVA tenderness. No palpable pulsatile mass. Skin: Warm, dry, no erythema, no rash. [] Back: No tenderness, no CVA tenderness. Full range of motion. No step-offs or midline tenderness. Extremities: No limb deformity. No lower extremity edema. No calf tenderness. Pelvis is stable. Mild tenderness to palpation of the bilateral lateral hip areas. No warmth or erythema. No pain or tenderness at a proportion to exam. Full passive and active range of motion in all directions of both hips, knees, lower legs, ankles and feet. Neurologic: Alert and oriented X 3, normal motor function, normal sensory function, no focal deficits noted. [] Psychologic: Affect normal, judgement normal, mood normal. He is pleasant, jovial, cooperative. Current Patient Data: Vital Signs: Vital Signs Date Time Temp Pulse Resp B/P (MAP) Pulse Ox O2 Delivery O2 Flow Rate FiO2 01/17/22 14:27 98.3 72 16 121/72 (88) 97 Room Air EKG: EKG: EKG is interpreted at 1510 Rhythm is sinus Rate is 76 bpm [place] is normal No STEMI Radiology/Procedures: Radiology/Procedures: IMAGING REPORT Signed PATIENT: ZAIDA CARRERO ACCOUNT: [id number] : 1950 LOCATION: ER AGE: 71 SEX: M EXAM STATUS: REG ER ORD. PHYSICIAN: RYLEE OJ DO REASON: pelvic pain with fall PROCEDURE: PELVIS Pelvis one view HISTORY: Hip pain AP view was taken of the pelvis, an additional view was taken to include the entire left hip. Pelvis is intact without osseous abnormality. Right hip appears unremarkable. There is an old hip fracture on the left with an intramedullary camille and hip nail which are remaining good position. Previous fracture appears healed. IMPRESSION: 1. Negative pelvis. Electronically signed by: Scott Russo MD (01/17/2022 3:42 PM) [facility] DICTATED AND SIGNED BY: SCOTT RUSSO MD DATE: 01/17/22 1536 CC: RYLEE JO DO; KAY ZAMORA ~ IMAGING REPORT Signed PATIENT: ZAIDA CARRERO ACCOUNT: [id number] : 1950 LOCATION: ER AGE: 71 SEX: M EXAM STATUS: REG ER ORD. PHYSICIAN: RYLEE JO DO REASON: chest pain PROCEDURE: PORTABLE CHEST 1V AP chest. HISTORY: Chest pain AP view was taken of the chest. Heart is normal in size. There is no pleural effusion. There are mild chronic interstitial changes without change from the old study. There are no acute infiltrates. IMPRESSION: 1. Mild chronic interstitial changes similar to the old study. 2. No acute infiltrates. Electronically signed by: Scott Russo MD (01/17/2022 3:36 PM) [employer] DICTATED AND SIGNED BY: SCOTT RUSSO MD DATE: 01/17/22 1536 CC: RYLEE JO DO; KAY ZAMORA ~ Heart Score: C/O Chest Pain: Yes HEART Score for Chest Pain: HEART Score for Chest Pain Response (Comments) Value History Slighlty/Non-Suspicious 0 ECG Nonspecific Repolarizatio 1 Age > 65 2 Risk Factors >3 Risk Factors or Hx CAD 2 Troponin < Normal Limit 0 Total 5 Risk Factors: Risk Factors: DM, Current or recent (<one month) smoker, HTN, HLP, family history of CAD, obesity. Risk Scores: Score 0 - 3: 2.5% MACE over next 6 weeks - Discharge Home Score 4 - 6: 20.3% MACE over next 6 weeks - Admit for Clinical Observation Score 7 - 10: 72.7% MACE over next 6 weeks - Early Invasive Strategies Course & Med Decision Making: Course & Med Decision Making Pertinent Labs and Imaging studies reviewed. (See chart for details) IV Toradol was given for pain. He is sleeping and resting comfortably. I have discussed all of the findings, differential diagnosis and plan of care with him. No indication for further invasive exams, imaging or admission at this time based on current clinical presentation. His chest pain is atypical, has been present for several days, troponin is negative. No evidence of acute ischemia on EKG. I told him to contact his PCP for follow-up. He should follow-up with his computer applications engineer as well. Return precautions are given. He verbalizes understanding. Robert Disclaimer: Robert Disclaimer: This electronic medical record was generated, in whole or in part, using a voice recognition dictation system. Departure Departure: Impression: Primary Impression: Atypical chest pain Additional Impression: Bilateral hip pain Disposition: HOME / SELF CARE / HOMELESS Condition: STABLE Referrals: KAY ZAMORA (PCP) Patient Instructions: Arthralgia, Chest Pain (Nonspecific), Chest Wall Pain Additional Instructions: Return for injury or trauma, temperature of 100.4 or higher, shortness of breath, more severe chest pain, abdominal pain, vomiting, weakness or other concerns. Please contact your primary care physician for follow up. RYLEE JO DO Jan 17, 2022 14:44
[2022-01-17] MEDS ORDERED: KETOROLAC 15 MG/ML VIAL. IVP ONE (15:00)
[2022-01-17 15:38] LABS: BASO # 0.1 x10^3/uL (0.0-0.2); BASO % 1 % (0-3); EOS # 0.4 x10^3/uL (0.0-0.7); EOS % 6 % (0-3); HEMATOCRIT 32.8 % (39.0-53.0); HEMOGLOBIN 10.5 g/dL (13.0-17.5); LYMPH # 2.9 x10^3/uL (1.0-4.8); LYMPH % 43 % (24-48); MEAN CORPUSCULAR HEMOGLOBIN 22 pg (25-35); MEAN CORPUSCULAR HGB CONC 32 g/dL (31-37); MEAN CORPUSCULAR VOLUME 70 fL (79-100); MONO # 0.7 x10^3/uL (0.0-1.1); MONO % 11 % (0-9); NEUT # 2.6 x10^3uL (1.8-7.7); NEUT % 40 % (31-73); PLATELET COUNT 359 x10^3/uL (140-400); RED BLOOD COUNT 4.71 x10^6/uL (4.30-5.70); RED CELL DISTRIBUTION WIDTH 20.5 % (11.5-14.5); WHITE BLOOD COUNT 6.6 x10^3/uL (4.0-11.0)
--- NOTE | 2022-01-17 15:39 | RAD ---
AP chest. HISTORY: Chest pain AP view was taken of the chest. Heart is normal in size. There is no pleural effusion. There are mild chronic interstitial changes without change from the old study. There are no acute infiltrates. IMPRESSION: 1. Mild chronic interstitial changes similar to the old study. 2. No acute infiltrates. Electronically signed by: Scott Russo MD (01/17/2022 3:36 PM) [facility]
[2022-01-17 15:44] LABS: CALCIUM 8.4 mg/dL (8.5-10.1); CREATININE 0.9 mg/dL (0.7-1.3); GFR 83.4; POTASSIUM 4.1 mmol/L (3.5-5.1)
--- NOTE | 2022-01-17 15:44 | RAD ---
Pelvis one view HISTORY: Hip pain AP view was taken of the pelvis, an additional view was taken to include the entire left hip. Pelvis is intact without osseous abnormality. Right hip appears unremarkable. There is an old hip fracture o n the left with an intramedullary camille and hip nail which are remaining good position. Previous fractu re appears healed. IMPRESSION: 1. Negative pelvis. Electronically signed by: Scott Russo MD (01/17/2022 3:42 PM) [facility]
[2022-01-17 15:57] LABS: ALBUMIN 3.6 g/dL (3.4-5.0); ALBUMIN/GLOBULIN RATIO 1.1 (1.0-1.7); MAGNESIUM 2.1 mg/dL (1.8-2.4); TOTAL BILIRUBIN 0.3 mg/dL (0.2-1.0); TOTAL PROTEIN 6.9 g/dL (6.4-8.2)
[2022-01-17 16:17] VITALS: BP 118/84
[2022-01-17 17:05] LABS: CLARITY,URINE CLEAR; COLOR,URINE YELLOW; GLUCOSE,URINE NEG (NEG)
[2022-01-17 17:06] LABS: BACTERIA,URINE 0 /HPF (0-FEW); NITRITE,URINE NEG (NEG); RBC,URINE 0 /HPF (0-2); UROBILINOGEN,URINE 0.2 mg/dL (0.2 mg/dL); WBC,URINE 0 /HPF (0-4)
[2022-01-17 18:45] LABS: ANISOCYTOSIS MOD; HYPOCHROMIA MOD; MICROCYTOSIS MARKED
[2022-01-17 18:46] LABS: PLT ESTIMATE ADEQUATE (ADEQUATE)
--- NOTE | 2022-01-17 23:31 | EKG ---
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
== END 2022-01-17 16:17 | disposition home or self-care (01) ==
LOC: ER 14:23
DX: R07.89 Other chest pain (principal); R05.3 Chronic cough; M25.551 Pain in right hip; M25.552 Pain in left hip; I11.0 Hypertensive heart disease with heart failure; I50.9 Heart failure, unspecified; E78.00 Pure hypercholesterolemia, unspecified; I25.2 Old myocardial infarction; F17.210 Nicotine dependence, cigarettes, uncomplicated; Z86.73 Personal history of transient ischemic attack (TIA), and cerebral infarction without residual deficits
CPT/HCPCS: 36415; 71045; 72170; 80053; 81001; 82550; 83690; 83735; 83880; 84484; 85025; 93005; 96374; 99285; J1885

== ENCOUNTER 2022-02-11 10:18 | Observation (INO) | payer OTHER ==
[~2022-02-11] VITALS: Ht 165.1 cm; Wt 88.7 kg
--- NOTE | 2022-02-11 10:54 | PHYS DOC ---
Past History Past Medical History: CHF, CVA, High Cholesterol, Hypertension, DE, Other Past Surgical History: Hip Replacement, Other Additional Past Surgical Histo: Cardiac stent Smoking: Cigarettes, Greater than 1 pack/day Alcohol Use: None Drug Use: None General Adult EDM: Chief Complaint: CHEST PAIN HPI: HPI: Patient is a 71-year-old male who presents to the emergency department for left- sided chest pain that has been going on for 2 months. He describes the chest pain is sharp rates it 8 out of 10. It is worse with deep inspiration and cough. Patient reports an increase in his productive cough. Patient does have a chronic cough due to COPD. Patient is also reporting increased swelling in bilateral lower extremities have been going on for "several months". Patient denies any treatment for his chest pain prior to arrival. He denies any fever, nausea, vomiting. He is not vaccinated for COVID-19. Patient is a current smoker. He has history of diabetes, DVT on Plavix, COPD, CHF, hypertension, hyperlipidemia and DE. Review of Systems: Review of Systems: Constitutional: See HPI Respiratory: See HPI Cardiovascular: See HPI GI: See HPI Musculoskeletal: See HPI Current Medications: Current Meds: Current Medications Medications (Trade) Dose Ordered Sig/Manuelito Start Time Stop Time Status Last Admin Dose Admin Albuterol/ Ipratropium (Duoneb) 3 ml 1X ONCE 02/11/22 11:00 02/11/22 11:01 UNV Aspirin (Aspirin Chewable) 324 mg 1X ONCE 02/11/22 11:00 02/11/22 11:01 UNV Methylprednisolone Sodium Succinate (SOLU-Medrol 125MG VIAL) 125 mg 1X ONCE 02/11/22 11:00 02/11/22 11:01 UNV Morphine Sulfate (Morphine 2mg Syringe) 2 mg 1X ONCE 02/11/22 11:00 02/11/22 11:01 UNV Sodium Chloride 1,000 ml @ 1,000 mls/hr Q1H 02/11/22 11:00 02/11/22 11:59 UNV Allergies: Allergies: Allergies Coded Allergies Type Severity Reaction Last Updated Verified No Known Drug Allergies 10/01/21 No Physical Exam: PE: Constitutional: Well developed, well nourished, no acute distress, non-toxic appearance. [] HENT: Normocephalic, atraumatic, bilateral external ears normal, oropharynx moist, no oral exudates, nose normal. [] Eyes: PERRL, EOMI, conjunctiva normal, no discharge. [] Neck: Normal range of motion, no tenderness, supple, no stridor. [] Cardiovascular:Heart rate regular rhythm, no murmur [] Lungs & Thorax: Wheezing noted throughout all lung barrios Abdomen: Bowel sounds normal, soft, no tenderness, no masses, no pulsatile masses. [] Skin: Warm, dry, no erythema, no rash. [] Back: No tenderness, motion Extremities: No tenderness, no cyanosis, no clubbing, ROM intact, no edema. [] Neurologic: Alert and oriented X 3, normal motor function, normal sensory function, no focal deficits noted. [] Psychologic: Affect normal, judgement normal, mood normal. [] Current Patient Data: Labs: Laboratory Tests Test 02/11/22 11:00 White Blood Count 7.1 x10^3/uL Red Blood Count 5.13 x10^6/uL Hemoglobin 11.1 g/dL Hematocrit 34.7 % Mean Corpuscular Volume 68 fL Mean Corpuscular Hemoglobin 22 pg Mean Corpuscular Hemoglobin Concent 32 g/dL Red Cell Distribution Width 20.0 % Platelet Count 391 x10^3/uL Neutrophils (%) (Auto) 39 % Lymphocytes (%) (Auto) 43 % Monocytes (%) (Auto) 13 % Eosinophils (%) (Auto) 4 % Basophils (%) (Auto) 1 % Neutrophils # (Auto) 2.8 x10^3uL Lymphocytes # (Auto) 3.1 x10^3/uL Monocytes # (Auto) 0.9 x10^3/uL Eosinophils # (Auto) 0.3 x10^3/uL Basophils # (Auto) 0.1 x10^3/uL Platelet Estimate Pending Sodium Level 136 mmol/L Potassium Level 4.3 mmol/L Chloride Level 101 mmol/L Carbon Dioxide Level 25 mmol/L Anion Gap 10 Blood Urea Nitrogen 13 mg/dL Creatinine 1.0 mg/dL Estimated GFR (Cockcroft-Gault) 73.9 BUN/Creatinine Ratio 13 Glucose Level 107 mg/dL Calcium Level 9.6 mg/dL Total Bilirubin 0.3 mg/dL Aspartate Amino Transf (AST/SGOT) 18 U/L Alanine Aminotransferase (ALT/SGPT) 39 U/L Alkaline Phosphatase 126 U/L Troponin I High Sensitivity 9 ng/L UD-Enh-E-Type Natriuretic Peptide 42 pg/mL Total Protein 7.4 g/dL Albumin 3.7 g/dL Albumin/Globulin Ratio 1.0 Current Medications Medications (Trade) Dose Ordered Sig/Manuelito Route PRN Reason Start Time Stop Time Status Last Admin Dose Admin Aspirin (Aspirin Chewable) 324 mg 1X ONCE PO 02/11/22 11:00 02/11/22 11:01 DC 02/11/22 11:27 Sodium Chloride 1,000 ml @ 1,000 mls/hr Q1H IV 02/11/22 11:00 02/11/22 11:59 02/11/22 11:28 Methylprednisolone Sodium Succinate (SOLU-Medrol 125MG VIAL) 125 mg 1X ONCE IV 02/11/22 11:00 02/11/22 11:01 DC 02/11/22 11:30 Morphine Sulfate (Morphine 2mg Syringe) 2 mg 1X ONCE IV 02/11/22 11:00 02/11/22 11:01 DC Albuterol/ Ipratropium (Duoneb) 3 ml 1X ONCE NEB 02/11/22 11:00 02/11/22 11:01 DC Iohexol (Omnipaque 350 Mg/ml) 100 ml 1X ONCE IV 02/11/22 11:00 02/11/22 11:01 DC 02/11/22 11:07 Info (Do NOT chart on this entry -- for MONITORING) 1 each PRN DAILY PRN MC SEE COMMENTS 02/11/22 11:00 02/13/22 10:59 Vital Signs: Vital Signs Date Time Temp Pulse Resp B/P (MAP) Pulse Ox O2 Delivery O2 Flow Rate FiO2 02/11/22 10:30 98.0 88 20 138/77 (97) 98 Room Air EKG: EKG: EKG performed by ER staff at 1039 shows sinus rhythm with a rate of 86, QTc is 422, read by Dr. Carrera at 1040, no STEMI [] Radiology/Procedures: Radiology/Procedures: []PROCEDURE: CT ANGIOGRAPHY CHEST EXAMINATION: CTA chest. Technique: Axial images with coronal and sagittal reconstructions with MIP te chnique are performed of chest with angiogram protocol. 100 mL of Isovue- Omnipaque 350 administered intravenously. One or more of the following radiation dose reduction techniques was used: automated exposure control, adjustment of mA and/or KV according to patient size, and/or utilization of iterative reconstruction technique. HISTORY: 71 years Male Reason: chest pain, soa, hx blood clots, COMPARISON: October 29, 2021. FINDINGS: The pulmonary arteries are well-opacified with no filling defects to suggest pulmonary embolism. The thoracic aorta is normal in caliber. Slightly prominent the mostly soft plaque is seen in the aortic arch and the descending aorta. The origin of the great vessels from the aortic arch appear patent. There are enlarged the mediastinal lymph nodes measuring up to 1.8 cm in the infracarinal region and 1.6 cm of the right paratracheal region. Some of these a nodes are from partially calcified which may indicate sequela of prior granulomatous process. Also partially calcified and minimally enlarged right hilar lymph node is seen. 1.3 cm mildly enlarged left hilar lymph node is also noted. There is no mediastinal mass seen otherwise. The lungs demonstrate peripheral septal thickening likely secondary to scarring. The findings are unchanged from the previous exam. Minimal honeycombing in peripheral small air cysts are seen in the right lower lobe and the bilateral upper lobes. In the right lower lobe there is an 8 mm from nodule similar to the previous exam image 110. The heart size is normal. No pericardial effusion. There is no pleural effusion. The catheter sections in the upper abdomen appear grossly unremarkable. The osseous structures demonstrate prominent anterior longitudinal ligament ossifications. IMPRESSION: 1. No PE or aortic dissection. 2. Indeterminate the 8 mm right lower lobe nodule. Calcified lymph nodes in the mediastinum and emily could be sequela of prior granulomatous process and the this could be a noncalcified granuloma as well. A follow-up CT chest in 6 months is recommended to observe this lesion. 3. Mild peripheral interstitial scarring in the upper lobes and the right lower lobe. Differential considerations for the pulmonary findings and lymphadenopathy may include sarcoidosis. Correlate clinically. Electronically signed by: Efrain Ta MD (02/11/2022 11:35 AM) [id number] DICTATED AND SIGNED BY: EFRAIN TA MD DATE: 02/11/22 1120 CC: EMERGENCY,DEPARTMENT; KAY ZAMORA; CLAUDIA AYERS GRAIN SHOVELER ~ Heart Score: C/O Chest Pain: Yes HEART Score for Chest Pain: HEART Score for Chest Pain Response (Comments) Value History Slighlty/Non-Suspicious 0 ECG Nonspecific Repolarizatio 1 Age > 65 2 Risk Factors >3 Risk Factors or Hx CAD 2 Troponin < Normal Limit 0 Total 5 Risk Factors: Risk Factors: DM, Current or recent (<one month) smoker, HTN, HLP, family history of CAD, obesity. Risk Scores: Score 0 - 3: 2.5% MACE over next 6 weeks - Discharge Home Score 4 - 6: 20.3% MACE over next 6 weeks - Admit for Clinical Observation Score 7 - 10: 72.7% MACE over next 6 weeks - Early Invasive Strategies Course & Med Decision Making: Course & Med Decision Making Pertinent Labs and Imaging studies reviewed. (See chart for details) [] Patient presents to the emergency department today for chest pain that has been intermittent for 2 months. Chest pain is worse with deep inspiration and cough and he does report an increase in productive cough. He is a smoker and has COPD. Patient has significant number of risk factors including diabetes, smoking, hypertension, hyperlipidemia and DE. Work-up in the ER consisted of blood work including troponin and BNP, EKG. Due to patient's history of blood clots and his chest pain and shortness of breath a CT angio of his chest was performed to rule out PE. Patient treated with aspirin, pain medication, steroid and duoneb for copd as he is having wheezing. Patient's heart score is 5. BNP is within normal limits and he does not have an elevated troponin. Remainder patient's lab work was unremarkable. The chest CTA does not show any pulmonary embolism or dissection but does show mild judit pheral interstitial scarring in the upper lobes in the right lower lobe. Upon reevaluation, patient reports that he has had mild improvement in his chest pain but continues to have the chest pain. Due to this and his heart score and risk factors, patient will need to be admitted to the hospital for serial troponins and cardiac consultation. I discussed these findings and patient's case with Dr. Vann who agreed to admit the patient under his services for chest pain. I discussed the results and care plan with patient and he is agreeable to admission. ER bridge orders placed at this time 1154. Robert Disclaimer: Robert Disclaimer: This electronic medical record was generated, in whole or in part, using a voice recognition dictation system. Departure Departure: Impression: Primary Impression: Chest pain Qualified Codes: R07.9 - Chest pain, unspecified Disposition: 09 ADMITTED INPATIENT Admitting Physician: Danilo Vann Condition: STABLE Referrals: KAY ZAMORA (PCP) CLAUDIA AYERS GRAIN SH[employer]ELER February 11, 2022 10:54
[2022-02-11] MEDS ORDERED: CONTRAST GIVEN. MC PRN (11:00)
[2022-02-11] MEDS ORDERED: ASPIRIN CHEWABLE 81 MG TABLET. PO ONE (11:00)
[2022-02-11] MEDS ORDERED: IPRATRPIUM/ALBUTEROL 0.5/2.5MG 3 ML NEBU. NEB ONE (11:00)
[2022-02-11] MEDS ORDERED: methylPREDNISolone SOD SUCC PF 125 MG/2 ML VIAL. IV ONE (11:00)
[2022-02-11] MEDS ORDERED: MORPHINE SULFATE 2 MG/ML DISP.SYRIN. IV ONE (11:00)
[2022-02-11] MEDS ORDERED: IOHEXOL 350 MG/ML 100 ML VIAL. IV ONE (11:00)
[2022-02-11] MEDS ORDERED: IV NORMAL SALINE 1,000ML 1,000 ML IV SCH (11:00)
[2022-02-11 11:23] LABS: BASO # 0.1 x10^3/uL (0.0-0.2); BASO % 1 % (0-3); EOS # 0.3 x10^3/uL (0.0-0.7); EOS % 4 % (0-3); HEMATOCRIT 34.7 % (39.0-53.0); HEMOGLOBIN 11.1 g/dL (13.0-17.5); LYMPH # 3.1 x10^3/uL (1.0-4.8); LYMPH % 43 % (24-48); MEAN CORPUSCULAR HEMOGLOBIN 22 pg (25-35); MEAN CORPUSCULAR HGB CONC 32 g/dL (31-37); MEAN CORPUSCULAR VOLUME 68 fL (79-100); MONO # 0.9 x10^3/uL (0.0-1.1); MONO % 13 % (0-9); NEUT # 2.8 x10^3uL (1.8-7.7); NEUT % 39 % (31-73); PLATELET COUNT 391 x10^3/uL (140-400); RED BLOOD COUNT 5.13 x10^6/uL (4.30-5.70); WHITE BLOOD COUNT 7.1 x10^3/uL (4.0-11.0)
[2022-02-11 11:34] LABS: CALCIUM 9.6 mg/dL (8.5-10.1); GFR 73.9; POTASSIUM 4.3 mmol/L (3.5-5.1)
--- NOTE | 2022-02-11 11:38 | RAD ---
EXAMINATION: CTA chest. Technique: Axial images with coronal and sagittal reconstructions with MIP technique are performed of chest with angiogram protocol. 100 mL of Isovue-Omnipaque 350 administered intravenously. One or more of the following radiation dose reduction techniques was used: automated exposure control , adjustment of mA and/or KV according to patient size, and/or utilization of iterative reconstructio n technique. HISTORY: 71 years Male Reason: chest pain, soa, hx blood clots, COMPARISON: October 29, 2021. FINDINGS: The pulmonary arteries are well-opacified with no filling defects to suggest pulmonary embolism. The thoracic aorta is normal in caliber. Slightly prominent the mostly soft plaque is seen in the aortic arch and the descending aorta. The origin of the great vessels from the aortic arch appear patent. There are enlarged the mediastinal lymph nodes measuring up to 1.8 cm in the infracarinal region and 1.6 cm of the right paratracheal region. Some of these a nodes are from partially calcified which may indicate sequela of prior granulomatous process. Also partially calcified and minimally enlarged rig ht hilar lymph node is seen. 1.3 cm mildly enlarged left hilar lymph node is also noted. There is no mediastinal mass seen otherwise. The lungs demonstrate peripheral septal thickening likely secondary to scarring. The findings are unc hanged from the previous exam. Minimal honeycombing in peripheral small air cysts are seen in the rig ht lower lobe and the bilateral upper lobes. In the right lower lobe there is an 8 mm from nodule sim ilar to the previous exam image 110. The heart size is normal. No pericardial effusion. There is no pleural effusion. The catheter sections in the upper abdomen appear grossly unremarkable. The osseous structures demonstrate prominent anterior longitudinal ligament ossifications. IMPRESSION: 1. No PE or aortic dissection. 2. Indeterminate the 8 mm right lower lobe nodule. Calcified lymph nodes in the mediastinum and emily could be sequela of prior granulomatous process and the this could be a noncalcified granuloma as wel l. A follow-up CT chest in 6 months is recommended to observe this lesion. 3. Mild peripheral interstitial scarring in the upper lobes and the right lower lobe. Differential co nsiderations for the pulmonary findings and lymphadenopathy may include sarcoidosis. Correlate clinic ally. Electronically signed by: Kosta Ta MD (02/11/2022 11:35 AM) [id number]
[2022-02-11 11:40] LABS: ALBUMIN 3.7 g/dL (3.4-5.0); TOTAL BILIRUBIN 0.3 mg/dL (0.2-1.0); TOTAL PROTEIN 7.4 g/dL (6.4-8.2)
[2022-02-11] MEDS ORDERED: MORPHINE SULFATE 2 MG/ML DISP.SYRIN. IVP PRN (12:00)
[2022-02-11 12:12] LABS: PLT ESTIMATE ADEQUATE (ADEQUATE)
[2022-02-11 12:14] LABS: ANISOCYTOSIS SLIGHT; MICROCYTOSIS SLIGHT
[2022-02-11 12:50] LABS: INFLUENZA A PATIENT NEGATIVE (NEGATIVE); INFLUENZA B PATIENT NEGATIVE (NEGATIVE)
[2022-02-11 13:33] VITALS: BP 157/96
[2022-02-11 14:47] VITALS: BP 125/78
[2022-02-11] MEDS ORDERED: LOSA25TA PO (15:23)
[2022-02-11] MEDS ORDERED: GUAI600T47 PO (15:24)
[2022-02-11] MEDS ORDERED: ASPI-630 PO (15:24)
[2022-02-11] MEDS ORDERED: ALBUTEROL SULFATE 2.5 MG/3 ML NEBU. IH PRN (15:30)
--- NOTE | 2022-02-11 16:01 | HP ---
DATE OF SERVICE: 02/11/2022 ADMIT DATE: 02/11/2022 HISTORY OF PRESENT ILLNESS: The patient is a 71-year-old male patient who presented to the Emergency Room of [facility] with a complaint of chest pain. According to him, the pain has started about 2 months ago and the pain comes and goes. He describes the pain as sharp, rated about 8/10, worse with deep inspiration and cough. He did not really offer any relationship with exertion or whether it happens at rest. Denied any nausea or vomiting. Denied any diaphoresis. Denied any radiation. He also stated that he has worsening shortness of breath that limits ability to walk, together with also some pain in his legs. The patient was seen in this hospital in 05/2021 and at that time he was seen also by the Cardiology team and at that time his EKG was negative and his troponin was negative and he apparently at that time was scheduled through the [facility]iology team to have a stress test and echocardiogram. He was basically extensively investigated in the Emergency Room, has had an EKG, which showed that he was in sinus rhythm with a heart rate of 86 beats per minute and corrected interval of 422, with no ST segment elevation. He had a CT angio of the chest, which showed that there is no pulmonary emboli or aortic dissection. There is an indeterminate 8 mm right lower lobe nodule. He has also calcified lymph nodes in the mediastinum and emily, could be sequelae of prior granulomatous process and this could be a non-calcified granuloma as well. Followup CT scan in 6 months is recommended to observe this lesion. He has also mild peripheral interstitial scarring in the upper lobes and the right lower lobe. Differential consideration for the pulmonary finding and lymphadenopathy includes sarcoidosis. He has 2 sets of cardiac enzymes, troponin I high sensitivity, the first one was 9, the second was 8 and his beta natriuretic peptide was 42. The patient was admitted for further evaluation and treatment. PAST MEDICAL HISTORY: Significant for coronary artery disease status post PCI with stent deployment, hypertension, hyperlipidemia, chronic obstructive pulmonary disease, gastroesophageal reflux disease, peptic ulcer disease and generalized osteoarthritis. PAST SURGICAL HISTORY: Significant for cholecystectomy, left total hip arthroplasty as well as PCI with stent deployment. FAMILY HISTORY: Positive for diabetes. SOCIAL HISTORY: He lives with his . He continues to smoke a pack a day, although when I spoke to him today, he said that he is single and never , has no children. He continues to smoke cigarettes, but does not drink alcohol or use recreational drugs. ALLERGIES: He has no known drug allergies. MEDICATIONS: He is currently on the following medications: He is on Combivent Respimat inhaler 2 puffs every 6 hours, albuterol sulfate inhaler 2 puffs every 4 hours, Plavix 75 mg once a day, carvedilol 6.25 mg twice a day with meals, losartan potassium 25 mg daily, aspirin 81 mg once a day, guaifenesin 600 mg twice a day and Protonix 40 mg daily. PHYSICAL EXAMINATION: GENERAL: On arrival to the Emergency Room, the patient looked well and was clearly in no apparent respiratory distress. No pallor, jaundice, cyanosis or thyromegaly. No jugular venous distention. No limb edema. VITAL SIGNS: His heart rate was 88, blood pressure was 138/77, temperature was 98, respiratory rate 20, and oxygen saturation was 98%. HEAD, EYES, EARS, NOSE AND THROAT: Normocephalic, atraumatic. NECK: Supple. HEART: Showed normal first and second heart sounds. No gallop or murmur. CHEST: Shows central trachea, equal bilateral chest expansion, air entry, vesicular breath sounds with bilateral basal crepitation and few scattered rhonchi. ABDOMEN: Distended, soft, nontender. NEUROLOGIC: He is awake, alert, responding appropriately. He probably has some form of mental delay and had also difficulty sometimes understanding, but generally he moves all his extremities without difficulty. LABORATORY DATA: He has had lab work done in the Emergency Room showed a white cell count 7.1, hemoglobin 11, hematocrit 34, MCV 68, platelet count of 391,000, with a manual differential showed 39% polymorphs, 43% lymphocytes and 13% monocytes. His serum sodium was 136, potassium 4.3, chloride 101, bicarbonate 25, anion gap of 10, BUN 13, creatinine 1, estimated GFR was 74 mL per minute. His glucose 107, calcium was 9.6. Total bilirubin, AST, ALT were normal. Alkaline phosphatase slightly elevated. First troponin I high sensitivity was 9. Beta natriuretic peptide was 42. Total protein 7.4, albumin 3.7. His influenza A and B as well as coronavirus by rapid antigen testing were negative. His EKG showed that he was in sinus rhythm with a corrected QT interval of 422 milliseconds and there is no evidence of STEMI. ASSESSMENT AND PLAN: In summary, this is a 71-year-old male patient who came with a complaint of chest pain that has been going on for 2 months now. The pain is worse by taking a deep breath and cough. He does have recurrent episodes of dry hacking cough when I saw him today after he arrived to the hospital. So far he has 2 sets of cardiac enzymes that ruled out myocardial infarction. His BNP was only 42. He is a heavy smoker, has been smoking for a long time. On CT angio of the chest, there is a question of sarcoidosis. My plan is to arrange for another set of troponin and perhaps I will reconcile all his medications, and I will start him on steroids and his inhaler. I will also contact the [facility] Cardiology team. YANA/NÉSTOR CARLOS: Femi TID: [id number]
[2022-02-11] MEDS: IPRATRPIUM/ALBUTEROL 0.5/2.5MG 3 ML NEBU. NEB SCH ×2 (17:00→20:53)
[2022-02-11] MEDS ORDERED: NON FORMULARY ITEM (Ipratropium/Albuterol Sulfate (Combivent Respimat Inhal) 2 PUFF) INH SCH (18:00)
[2022-02-11] MEDS: CARVEDILOL 6.25 MG TABLET PO SCH (18:34)
[2022-02-11 20:14] VITALS: BP 154/84
[2022-02-11] MEDS: methylPREDNISolone SOD SUCC PF 40 MG/ML VIAL. IV SCH (21:09)
--- NOTE | 2022-02-11 23:28 | EKG ---
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
[2022-02-11 23:38] VITALS: BP 110/74
[2022-02-12] MEDS: methylPREDNISolone SOD SUCC PF 40 MG/ML VIAL. IV SCH (05:32)
[2022-02-12 05:34] VITALS: BP 118/71
[2022-02-12] MEDS: IPRATRPIUM/ALBUTEROL 0.5/2.5MG 3 ML NEBU. NEB SCH ×2 (05:35→09:39)
[2022-02-12 06:35] LABS: ALBUMIN 3.4 g/dL (3.4-5.0); ALBUMIN/GLOBULIN RATIO 0.9 (1.0-1.7); CREATININE 0.9 mg/dL (0.7-1.3); GFR 83.4; POTASSIUM 4.1 mmol/L (3.5-5.1); TOTAL BILIRUBIN 0.3 mg/dL (0.2-1.0); TOTAL PROTEIN 7.3 g/dL (6.4-8.2)
[2022-02-12 06:43] LABS: BASO % 0 % (0-3); EOS % 0 % (0-3); HEMATOCRIT 32.7 % (39.0-53.0); HEMOGLOBIN 10.3 g/dL (13.0-17.5); LYMPH # 1.5 x10^3/uL (1.0-4.8); LYMPH % 10 % (24-48); MEAN CORPUSCULAR HEMOGLOBIN 22 pg (25-35); MEAN CORPUSCULAR HGB CONC 32 g/dL (31-37); MEAN CORPUSCULAR VOLUME 68 fL (79-100); MONO # 0.4 x10^3/uL (0.0-1.1); MONO % 2 % (0-9); NEUT % 88 % (31-73); PLATELET COUNT 395 x10^3/uL (140-400); RED CELL DISTRIBUTION WIDTH 20.6 % (11.5-14.5); WHITE BLOOD COUNT 14.8 x10^3/uL (4.0-11.0)
[2022-02-12] MEDS: CARVEDILOL 6.25 MG TABLET PO SCH (08:17)
--- NOTE | 2022-02-12 08:18 | PDOC2 ---
CARDIAC CONSULT DATE OF CONSULT DOS: DATE: 02/12/22 TIME: 08:18 REASON FOR CONSULT Reason for Consult Chest pain REFERRING PHYSICIAN Referring Physician Viry Garcia APRN SOURCE Source: Chart review, Patient HPI History of Present Illness This is a 71 yo male who presented secondary to intermittent chest pain over the last couple of months. Reports pain is in his epigastric region and radiated around to his left flank area. Also c/o pain down his right leg. Pain seems to be worse when he is drinking coffee and chocolate milk. No associated dizziness, diaphoresis, palpitations, or shortness of breath. Has a history of CAD s/p PCI/stents. Most recent a couple of years ago. [facility] PAST MEDICAL HISTORY Past Medical History Cardiovascular: CAD, HTN, hyperipidemia Pulmonary: COPD GI: GERD, Peptic Ulcer disease Musculoskeletal: Osteoarthritis PAST SURGICAL HISTORY Past Surgical History Cholecystectomy, Total hip replacement (left ) FAMILY HISTORY Family History: Diabetes SOCIAL HISTORY Social History Smoke: <1 pack per day ALCOHOL: none Drugs: None Lives: with Family CURRENT MEDICATIONS Current Medications Current Medications Aspirin (Aspirin Chewable) 324 mg 1X ONCE PO Last administered on 02/11/22at 11:27; Start 02/11/22 at 11:00; Stop 02/11/22 at 11:01; Status DC Sodium Chloride 1,000 ml @ 1,000 mls/hr Q1H IV Last administered on 02/11/22at 11:28; Start 02/11/22 at 11:00; Stop 02/11/22 at 11:59; Status DC Methylprednisolone Sodium Succinate (SOLU-Medrol 125MG VIAL) 125 mg 1X ONCE IV Last administered on 02/11/22at 11:30; Start 02/11/22 at 11:00; Stop 02/11/22 at 11:01; Status DC Morphine Sulfate (Morphine 2mg Syringe) 2 mg 1X ONCE IV Last administered on 02/11/22at 12:02; Start 02/11/22 at 11:00; Stop 02/11/22 at 11:01; Status DC Albuterol/ Ipratropium (Duoneb) 3 ml 1X ONCE NEB Last administered on 02/11/22at 12:05; Start 02/11/22 at 11:00; Stop 02/11/22 at 11:01; Status DC Iohexol (Omnipaque 350 Mg/ml) 100 ml 1X ONCE IV Last administered on 02/11/22at 11:07; Start 02/11/22 at 11:00; Stop 02/11/22 at 11:01; Status DC Info (Do NOT chart on this entry -- for MONITORING) 1 each PRN DAILY PRN MC SEE COMMENTS; Start 02/11/22 at 11:00; Stop 02/13/22 at 10:59 Morphine Sulfate (Morphine 2mg Syringe) 2 mg PRN Q2HR PRN IVP PAIN; Start 02/11/22 at 12:00; Stop 02/12/22 at 11:59 Albuterol Sulfate (Ventolin) 2.5 mg PRN Q4HRS PRN IH SHORTNESS OF BREATH; Start 02/11/22 at 15:30 Aspirin (Aspirin Chewable) 81 mg DAILY PO Last administered on 02/12/22at 08:16; Start 02/12/22 at 09:00 Carvedilol (Coreg) 6.25 mg BIDWMEALS PO Last administered on 02/12/22at 08:17; Start 02/11/22 at 17:00 Clopidogrel Bisulfate (Plavix) 75 mg QODAY PO ; Start 02/13/22 at 09:00 Guaifenesin (Mucinex Er) 600 mg BID PO Last administered on 02/12/22at 08:17; Start 02/11/22 at 21:00 Losartan Potassium (Cozaar) 25 mg DAILY PO Last administered on 02/12/22at 08:16; Start 02/12/22 at 09:00 Pantoprazole Sodium (Protonix) 40 mg DAILY PO Last administered on 02/12/22at 08:16; Start 02/12/22 at 09:00 Non-Formulary Medication (Ipratropium/ Albuterol Sulfate (Combivent Respimat Inhal)) 2 puff Q6HRS INH ; Start 02/11/22 at 18:00; Status UNV Methylprednisolone Sodium Succinate (SOLU-Medrol 40MG VIAL) 40 mg Q8HRS IV Last administered on 02/12/22at 05:32; Start 02/11/22 at 22:00 Albuterol/ Ipratropium (Duoneb) 3 ml RTQID NEB Last administered on 02/12/22at 05:35; Start 02/11/22 at 16:00 Active Scripts Active Ventolin Hfa Inhaler (Albuterol Sulfate) 18 Gm Hfa.aer.ad 2 Puff IH PRN Q4HRS PRN 7 Days Protonix (Pantoprazole Sodium) 40 Mg Tablet.dr 1 Tab PO DAILY Plavix (Clopidogrel Bisulfate) 75 Mg Tablet 75 Mg PO QODAY blood thinner last dose: 04/15 @ 9:02 AM next dose: 04/16 AM Combivent Respimat Inhal (Ipratropium/Albuterol Sulfate) 4 Gm Aer.w.adap 2 Puff INH Q6HRS Reported Aspirin 81 Mg Tab.chew 81 Mg PO DAILY Mucinex (Guaifenesin) 600 Mg Tablet.er 1 Tab PO BID 10 Days Cozaar (Losartan Potassium) 25 Mg Tablet 25 Mg PO DAILY Coreg (Carvedilol) 6.25 Mg Tablet 6.25 Mg PO BIDWMEALS ALLERGIES Allergies: Coded Allergies: No Known Drug Allergies (Unverified , 10/01/21) ROS Review of Systems 14 point ROS conducted with pertinent positives noted above in HPI PHYSICAL EXAM Physical Exam General: Alert, Oriented X3, Cooperative, No acute distress HEENT: Atraumatic Lungs: Clear to auscultation (left chest tenderness upon palpation) Heart: Regular rate Abdomen: Soft, No tenderness Extremities: No edema, Normal pulses Skin: No breakdown Neuro: Normal speech, Sensation intact Psych/Mental Status: Mental status NL, Mood NL MUSCULOSKELETAL: Osteoarthritic changes both hands VITALS Vital Signs Vital Signs Date Time Temp Pulse Resp B/P (MAP) Pulse Ox O2 Delivery O2 Flow Rate FiO2 02/12/22 08:17 99 118/71 02/12/22 05:35 98 Room Air 02/12/22 05:34 98.0 18 LABS LABS Laboratory Tests Test 02/11/22 11:00 02/11/22 12:00 02/11/22 13:49 02/11/22 17:05 White Blood Count 7.1 x10^3/uL (4.0-11.0) Red Blood Count 5.13 x10^6/uL (4.30-5.70) Hemoglobin 11.1 g/dL (13.0-17.5) Hematocrit 34.7 % (39.0-53.0) Mean Corpuscular Volume 68 fL (79-100) Mean Corpuscular Hemoglobin 22 pg (25-35) Mean Corpuscular Hemoglobin Concent 32 g/dL (31-37) Red Cell Distribution Width 20.0 % (11.5-14.5) Platelet Count 391 x10^3/uL (140-400) Neutrophils (%) (Auto) 39 % (31-73) Lymphocytes (%) (Auto) 43 % (24-48) Monocytes (%) (Auto) 13 % (0-9) Eosinophils (%) (Auto) 4 % (0-3) Basophils (%) (Auto) 1 % (0-3) Neutrophils # (Auto) 2.8 x10^3uL (1.8-7.7) Lymphocytes # (Auto) 3.1 x10^3/uL (1.0-4.8) Monocytes # (Auto) 0.9 x10^3/uL (0.0-1.1) Eosinophils # (Auto) 0.3 x10^3/uL (0.0-0.7) Basophils # (Auto) 0.1 x10^3/uL (0.0-0.2) Platelet Estimate Adequate (ADEQUATE) Anisocytosis Slight Microcytosis Slight Sodium Level 136 mmol/L (136-145) Potassium Level 4.3 mmol/L (3.5-5.1) Chloride Level 101 mmol/L (98-107) Carbon Dioxide Level 25 mmol/L (21-32) Anion Gap 10 (6-14) Blood Urea Nitrogen 13 mg/dL (8-26) Creatinine 1.0 mg/dL (0.7-1.3) Estimated GFR (Cockcroft-Gault) 73.9 BUN/Creatinine Ratio 13 (6-20) Glucose Level 107 mg/dL (70-99) Calcium Level 9.6 mg/dL (8.5-10.1) Total Bilirubin 0.3 mg/dL (0.2-1.0) Aspartate Amino Transf (AST/SGOT) 18 U/L (15-37) Alanine Aminotransferase (ALT/SGPT) 39 U/L (16-63) Alkaline Phosphatase 126 U/L (46-116) Troponin I High Sensitivity 9 ng/L (4-75) 8 ng/L (4-75) 6 ng/L (4-75) RM-Crs-Q-Type Natriuretic Peptide 42 pg/mL (0-124) Total Protein 7.4 g/dL (6.4-8.2) Albumin 3.7 g/dL (3.4-5.0) Albumin/Globulin Ratio 1.0 (1.0-1.7) Coronavirus (COVID-19)(PCR) Not detected (NOT DETECTD) Influenza Type A (Rapid) Negative (NEGATIVE) Influenza Type B (Rapid) Negative (NEGATIVE) SARS-CoV-2 Antigen (Rapid) Negative (NEGATIVE) Test 02/12/22 05:45 White Blood Count 14.8 x10^3/uL (4.0-11.0) Red Blood Count 4.80 x10^6/uL (4.30-5.70) Hemoglobin 10.3 g/dL (13.0-17.5) Hematocrit 32.7 % (39.0-53.0) Mean Corpuscular Volume 68 fL (79-100) Mean Corpuscular Hemoglobin 22 pg (25-35) Mean Corpuscular Hemoglobin Concent 32 g/dL (31-37) Red Cell Distribution Width 20.6 % (11.5-14.5) Platelet Count 395 x10^3/uL (140-400) Neutrophils (%) (Auto) 88 % (31-73) Lymphocytes (%) (Auto) 10 % (24-48) Monocytes (%) (Auto) 2 % (0-9) Eosinophils (%) (Auto) 0 % (0-3) Basophils (%) (Auto) 0 % (0-3) Neutrophils # (Auto) 13.0 x10^3uL (1.8-7.7) Lymphocytes # (Auto) 1.5 x10^3/uL (1.0-4.8) Monocytes # (Auto) 0.4 x10^3/uL (0.0-1.1) Eosinophils # (Auto) 0.0 x10^3/uL (0.0-0.7) Basophils # (Auto) 0.0 x10^3/uL (0.0-0.2) Sodium Level 136 mmol/L (136-145) Potassium Level 4.1 mmol/L (3.5-5.1) Chloride Level 103 mmol/L (98-107) Carbon Dioxide Level 23 mmol/L (21-32) Anion Gap 10 (6-14) Blood Urea Nitrogen 16 mg/dL (8-26) Creatinine 0.9 mg/dL (0.7-1.3) Estimated GFR (Cockcroft-Gault) 83.4 BUN/Creatinine Ratio 18 (6-20) Glucose Level 151 mg/dL (70-99) Calcium Level 9.0 mg/dL (8.5-10.1) Total Bilirubin 0.3 mg/dL (0.2-1.0) Aspartate Amino Transf (AST/SGOT) 19 U/L (15-37) Alanine Aminotransferase (ALT/SGPT) 37 U/L (16-63) Alkaline Phosphatase 106 U/L (46-116) Total Protein 7.3 g/dL (6.4-8.2) Albumin 3.4 g/dL (3.4-5.0) Albumin/Globulin Ratio 0.9 (1.0-1.7) ECHOCARDIOGRAM Echocardiogram <Conclusion> Left ventricle systolic function is normal. The Ejection Fraction is 55%. Doppler and Color Flow revealed mild tricuspid regurgitation. The PA pressure was estimated at 28 mmHg. There is no evidence of significant pericardial effusion. DATE: 06/01/18 1515 STRESS TEST Stress Test Conclusion 1. Regadenoson cardioisotope stress test did not show any evidence of ischemia or infarct. 2. Normal left ventricular systolic function with ejection fraction calculated at 62%. 3. Low risk for cardiac events. DATE: 06/01/18 1517 ASSESSMENT/PLAN Assessment/Plan 1. Epigastric, chest pain, atypical; AMI ruled out. EKG without acute changes as compared to previous 2. CAD s/p PCI/stents; Most recent 2 years ago. [facility] 3. Hypertension; controlled. 4. Hyperlipidemia; statin 5. COPD with persistent tobacco abuse; discussed/encouraged cessation Recommendations Continue secondary prevention measures Consider outpatient stress test Follow up with primary welcome wagon host/hostess upon discharge. ALEKS CHÁVEZ APRN February 12, 2022 08:18
[2022-02-12] MEDS ORDERED: ASPIRIN CHEWABLE 81 MG TABLET. PO SCH (09:00)
[2022-02-12] MEDS ORDERED: PANTOPRAZOLE 40 MG TABLET. PO SCH (09:00)
[2022-02-12] MEDS ORDERED: LOSARTAN 25 MG TABLET. PO SCH (09:00)
[2022-02-12 11:03] VITALS: BP 114/68
--- NOTE | 2022-02-12 19:59 | DS ---
DATE OF DISCHARGE: 02/12/2022 HOSPITAL COURSE: The patient is sitting comfortably in his chair, comfortably, in no apparent distress. Has had no further episode of chest pain. Denied any shortness of breath and he stated that he is feeling generally better and ready to go home. He has 3 sets of cardiac enzymes that ruled out myocardial infarction. He was seen by the rope walker who recommended outpatient stress test. We have actually made the arrangements for him to have a stress test last year and he never showed up. I spoke with Machelle Mabry and I actually made an appointment for him again to have a stress test on 02/18/2022 at 9:00 in the morning. PHYSICAL EXAMINATION: GENERAL: When I examined him, he looked well and was clearly in no apparent respiratory distress. No pallor, jaundice, cyanosis or thyromegaly. No jugular venous distention. No limb edema. VITAL SIGNS: His heart rate was 99, blood pressure is 114/68, temperature was 98.1, respiratory rate was 14, and oxygen saturation was 97% on room air. HEAD, EYES, EARS, NOSE, AND THROAT: Normocephalic, atraumatic. NECK: Supple. HEART: Normal first and second heart sounds. No gallop or murmur. CHEST: Shows central trachea, equal bilateral expansion, air entry, vesicular breath sounds, very few bilateral basal crepitation. I could not appreciate any rhonchi. ABDOMEN: Slightly distended, soft, nontender. NEUROLOGIC: He was grossly intact. His intake and output are incompletely recorded. LABORATORY DATA: His lab work this morning showed white cell count of 14.8, hemoglobin 10, hematocrit 32, MCV was 68, and platelet count 295,000 with normal manual differential. His chemistry showed a serum sodium of 136, potassium 4.1, chloride 103, bicarbonate 23, anion gap of 10, BUN 16, creatinine 0.9. Estimated GFR was 83 mL per minute. Glucose 151, calcium was 9. Total bilirubin, AST, ALT, alkaline phosphatase were normal. Total protein 7.3, albumin 3.4. His 3 sets of cardiac enzymes showed the troponin I high sensitivity to be 9, 8, and 6. His beta natriuretic peptide was 42. His CT angiogram of the chest showed that the patient has no pulmonary emboli or aortic dissection and there is an indeterminate 8 mm right lower lobe nodule, calcified lymph nodes in the mediastinum and emily, could be sequelae of prior granulomatous process and this could be noncalcified granulomatous as well, mild peripheral interstitial scarring in the upper lobes and right lower lobes. Differential consideration for the pulmonary finding and lymphadenopathy may include sarcoidosis as the patient was ruled out for myocardial infarction, unfortunately continues to smoke. A decision was made to discharge him home on a tapering course of steroids. DISCHARGE MEDICATIONS: In fact, he was discharged home to continue on albuterol sulfate 2 puffs every 4 hours, aspirin 81 mg once a day, carvedilol 6.25 mg twice a day, Plavix 75 mg every other day, Mucinex 600 mg twice a day, ipratropium bromide/albuterol sulfate by nebulizer every 6 hours, losartan potassium 25 mg daily, and Protonix 40 mg once a day. FINAL DISCHARGE DIAGNOSES: 1. Chest pain, acute myocardial infarction ruled out. 2. Chronic obstructive pulmonary disease exacerbation. 3. Coronary artery disease, status post percutaneous coronary intervention with stent deployment. 4. Hypertension. 5. Hyperlipidemia. 6. Gastroesophageal reflux disease. 7. Generalized osteoarthritis. PLAN: The patient has an appointment for a nuclear stress test at the [facility] team in [facility] on 02/18/2022 at 9:00. RADHA DR: Femi TID: [id number]
[2022-02-12 21:55] LABS: CHOLESTEROL/HDL RATIO 4.7
[2022-02-13] MEDS ORDERED: CLOPIDOGREL BISULFATE 75 MG TABLET PO SCH (09:00)
== END 2022-02-12 12:14 | disposition home or self-care (01) ==
LOC: ER 10:18 → ER HOLD 11:55 → INTOOBSV 11:55 → 1 SOUTH 12:28
PROVIDERS: ADMIT Internal Medicine; ATTEND Internal Medicine
DX: R07.89 Other chest pain (principal); Z20.822 Contact with and (suspected) exposure to COVID-19; J44.9 Chronic obstructive pulmonary disease, unspecified; I25.10 Atherosclerotic heart disease of native coronary artery without angina pectoris; I11.0 Hypertensive heart disease with heart failure; I50.9 Heart failure, unspecified; E78.5 Hyperlipidemia, unspecified; K21.9 Gastro-esophageal reflux disease without esophagitis; E78.00 Pure hypercholesterolemia, unspecified; K27.9 Peptic ulcer, site unspecified, unspecified as acute or chronic, without hemorrhage or perforation; I25.2 Old myocardial infarction; F17.210 Nicotine dependence, cigarettes, uncomplicated; M19.90 Unspecified osteoarthritis, unspecified site; Z90.49 Acquired absence of other specified parts of digestive tract; Z96.649 Presence of unspecified artificial hip joint; Z95.1 Presence of aortocoronary bypass graft; Z79.82 Long term (current) use of aspirin; Z79.01 Long term (current) use of anticoagulants; Z86.73 Personal history of transient ischemic attack (TIA), and cerebral infarction without residual deficits
CPT/HCPCS: 36415; 71275; 80053; 80061; 83880; 84484; 85025; 87428; 93005; 94640; 96361; 96374; 96375; 96376; 99285; G0378; J2270; J2920; J2930; J7030; Q9967; U0003; G0379

== ENCOUNTER 2022-02-20 19:17 | Emergency (ER) | payer OTHER ==
[~2022-02-20] VITALS: Ht 165.1 cm; Wt 88.7 kg
[~2022-02-20 19:17] MED LIST changes: +ASPI-630 PO; +GUAI600T47 PO; +LOSA25TA PO
[2022-02-20] MEDS ORDERED: LIDO:MAALOX 1:1 20 ML SINGLE DOSE. PO ONE (19:45)
--- NOTE | 2022-02-20 19:45 | PHYS DOC ---
Past History Past Medical History: CHF, CVA, High Cholesterol, Hypertension, NE, Other Past Surgical History: Hip Replacement, Other Additional Past Surgical Histo: Cardiac stent Smoking: Cigarettes, Greater than 1 pack/day Alcohol Use: None Drug Use: None General Adult EDM: Chief Complaint: SWALLOWED FORIEGN BODY HPI: HPI: Patient is a 71-year-old male well-known to this facility who presents to the emergency department for globus sensation. Patient reports that this is a chronic issue that he has had intermittently since having his stroke. He reports that he was eating something today and feels like he has it stuck in his throat. He reports that he had to cough several times and it took "2 to 3 minutes to get his went back". Patient is able to tolerate oral intake. He denies any nausea or vomiting he is able to maintain his secretions. Review of Systems: Review of Systems: HENT: See HPI Respiratory: See HPI GI: See HPI Allergies: Allergies: Allergies Coded Allergies Type Severity Reaction Last Updated Verified No Known Drug Allergies 10/01/21 No Physical Exam: PE: Constitutional: Well developed, well nourished, no acute distress, non-toxic appearance. [] HENT: Normocephalic, atraumatic, bilateral external ears normal, oropharynx moist, no oral exudates, no oropharyngeal edema, uvula midline, no trismus, no pharyngeal erythema, nose normal. [] Eyes: PERRL, EOMI, conjunctiva normal, no discharge. [] Neck: Normal range of motion, no tenderness, supple, no stridor. [] Cardiovascular:Heart rate regular rhythm, no murmur [] Lungs & Thorax: Bilateral breath sounds clear to auscultation [] Abdomen: Bowel sounds normal, soft, no tenderness, no masses, no pulsatile masses. [] Skin: Warm, dry, no erythema, no rash. [] Back: No tenderness, normal range of motion Extremities: No tenderness, no cyanosis, no clubbing, ROM intact, no edema. [] Neurologic: Alert and oriented X 3, normal motor function, normal sensory function, no focal deficits noted. [] Psychologic: Affect normal, judgement normal, mood normal. [] EKG: EKG: [] Radiology/Procedures: Radiology/Procedures: []STATUS: REG ERORD. PHYSICIAN: CLAUDIA AYERS APRN REASON: FEELS LIKE THERE IS A FB IN THROAT with pain and fullness PROCEDURE: CT SOFT TISSUE NECK WO CONTRST Exam: CT neck without contrast INDICATION: Possible foreign body, painful TECHNIQUE: Sequential axial images through the neck obtained without IV contrast. Sagittal and coronal reformatted images were reconstructed from the axial data and reviewed. Exposure: One or more of the following in the visualized dose reduction techniques were utilized for this examination: 1. Automated exposure control 2. Adjustment of the MA and/or KV according to patient size 3. Use of iterative of reconstructive technique Comparisons: None FINDINGS: Visualized intracranial structures are unremarkable. Nasopharynx, oropharynx, hypopharynx and larynx are unremarkable. No radiopaque foreign body identified. Thyroid and salivary glands are within normal limits. No enlarged cervical lymph nodes are identified. Visualized lung apices are clear. No suspicious osseous lesions or acute fractures. IMPRESSION: No radiopaque foreign body identified. Electronically signed by: Damien Forman MD (02/20/2022 8:10 PM) [facility] DICTATED AND SIGNED BY: DAMIEN FORMAN MD DATE: 02/20/222001 CC: KAY ZAMORA; CLAUDIA AYERS APRN ~ Heart Score: C/O Chest Pain: N/A Risk Factors: Risk Factors: DM, Current or recent (<one month) smoker, HTN, HLP, family history of CAD, obesity. Risk Scores: Score 0 - 3: 2.5% MACE over next 6 weeks - Discharge Home Score 4 - 6: 20.3% MACE over next 6 weeks - Admit for Clinical Observation Score 7 - 10: 72.7% MACE over next 6 weeks - Early Invasive Strategies Course & Med Decision Making: Course & Med Decision Making Pertinent Labs and Imaging studies reviewed. (See chart for details) [] Patient presents to the emergency for globus sensation that he has had intermittently since having his stroke. Patient reports that he was eating something today and felt like it stuck in his throat. CT imaging of his neck was performed which did not show any acute findings. Patient was given a GI cocktail. He is able to maintain his secretions and tolerate oral intake. P atshashank is referred to GI doctor as he may need a scope. I discussed with patient all findings and diagnostic testing as well as the need to follow-up with PCP for further evaluation and treatment or return to the ER if any new or worsening symptoms. Strict return precautions were also discussed at length. Patient voiced understanding and agreement with the plan. Patient is hemo dynamically stable at the time of disposition. Robert Disclaimer: Robert Disclaimer: This electronic medical record was generated, in whole or in part, using a voice recognition dictation system. Departure Departure: Impression: Primary Impression: Globus sensation Disposition: HOME / SELF CARE / HOMELESS Condition: GOOD Referrals: KAY ZAMORA (PCP) NAPOLEON TELLEZ MD Patient Instructions: Globus Syndrome Additional Instructions: You are seen in the emergency department for something called globus sensation where he feels like something is stuck in your throat. Please follow-up with your primary care provider tomorrow regarding your ER visit. You are being referred to a GI doctor as you may need a scope and if warranted stretching of your esophagus. If you are having nasal congestion you can use Flonase [id number] intranasal spray. Return to the emergency department inability to swallow or maintain your secretions, intractable nausea or vomiting, chest pain, shortness of breath, or any new or worsening concerns. CLAUDIA AYERS [employer]ANDEM M[employer] OPERATOR February 20, 2022 19:45
--- NOTE | 2022-02-20 20:12 | RAD ---
Exam: CT neck without contrast INDICATION: Possible foreign body, painful TECHNIQUE: Sequential axial images through the neck obtained without IV contrast. Sagittal and bae l reformatted images were reconstructed from the axial data and reviewed. Exposure: One or more of the following in the visualized dose reduction techniques were utilized for this examination: 1. Automated exposure control 2. Adjustment of the MA and/or KV according to patient size 3. Use of iterative of reconstructive technique Comparisons: None FINDINGS: Visualized intracranial structures are unremarkable. Nasopharynx, oropharynx, hypopharynx and larynx are unremarkable. No radiopaque foreign body identifi ed. Thyroid and salivary glands are within normal limits. No enlarged cervical lymph nodes are identified. Visualized lung apices are clear. No suspicious osseous lesions or acute fractures. IMPRESSION: No radiopaque foreign body identified. Electronically signed by: Damien Elam MD (02/20/2022 8:10 PM) [facility]
[2022-02-20 20:44] VITALS: BP 118/82
== END 2022-02-20 20:45 | disposition home or self-care (01) ==
LOC: ER 19:17
DX: F45.8 Other somatoform disorders (principal); I11.0 Hypertensive heart disease with heart failure; I50.9 Heart failure, unspecified; I25.2 Old myocardial infarction; E78.00 Pure hypercholesterolemia, unspecified; F17.210 Nicotine dependence, cigarettes, uncomplicated; Z86.73 Personal history of transient ischemic attack (TIA), and cerebral infarction without residual deficits
CPT/HCPCS: 70490; 99284